=== PATIENT | male | born 1960 | race African-American/Black ===

== ENCOUNTER 2016-07-07 13:21 | Inpatient (IN) | payer OTHER ==
[2016-07-07 14:40] VITALS: BMI 25.2
--- NOTE | 2016-07-07 15:01 | HP ---
COWS - Scale Resting Pulse: 1= [place] 81-100 Sweatin=Flushed/Facial Moisture Restless Observation: 3= Extraneous Movement Pupil Size: 2= Moderately Dilated Bone or Joint Aches: 2= Severe Diffuse Aches Runny Nose/ Eye Tearin= Runny Nose/Eyes GI Upset > 30mins: 3= Vomiting/Diarrhea Tremor Observation: 2= Slight Tremor Visible Yawning Observation: 2= >3x During Session Anxiety or Irritability: 2=Irritable/Anxious Goose Flesh Skin: 0=Smooth Skin COWS Score: 21 CIWA Score - CIWA Score Nausea/Vomitin Muscle Tremors: 3 Anxiety: 3 Agitation: 3 Paroxysmal Sweats: 2 Orientation: 0-Oriented Tacttile Disturbances: 2-Mild Itch/Numbness/Burn Auditory Disturbances: 2-Mild Harshness/Frighten Visual Disturbances: 2-Mild Sensitivity Headache: 2-Mild CIWA-Ar Total Score: 22 Admission ROS BHS - HPI Chief Complaint: i need help to stop using drugs alcohol Allergies/Adverse Reactions: Allergies Allergy/AdvReac Type Severity Reaction Status Date / Time Fish Containing Products Allergy Verified 07/07/16 14:51 No Known Drug Allergies Allergy Verified 07/07/16 14:51 History of Present Illness: this 56 years old male with heroin and alcohol dependence,withdrawal symptom, last detox [facility] history of dvt left leg and pulmonary embolism cad s/p angioplasty with stent nicotine dependence weight loss longest period od sobriety 3 years Exam Limitations: No Limitations - Ebola screening Have you traveled outside of the country in the last 21 days: No Have you had contact with anyone from an Ebola affected area: No Have you been sick,other than usual withdrawal symptoms: No Do you have a fever: No - Review of Systems Constitutional: Chills, Diaphoresis, Loss of Appetite, Malaise, Night Sweats, Changes in sleep, Weakness, Unintentional Wgt. Loss EENT: reports: Tearing, Nose Congestion Respiratory: reports: No Symptoms reported, Other (asthma) Cardiac: reports: Palpitations, Other (cad s/p angioplasty with stent) GI: reports: Nausea, Vomiting, Indigestion, Abdominal cramping : reports: No Symptoms Reported Musculoskeletal: reports: Back Pain, Joint Pain, Muscle Pain, Joint Stiffness Integumentary: reports: Dryness Neuro: reports: Headache, Tremors Endocrine: reports: No Symptoms Reported Hematology: reports: No Symptoms Reported Psychiatric: reports: other Other Systems: Reviewed and Negative Patient History - Patient Medical History Hx Anemia: No Hx Asthma: No Hx Chronic Obstructive Pulmonary Disease (COPD): No Hx Cancer: No Hx Cardiac Disorders: Yes (CAD with cardiac cath stent x1) Hx Congestive Heart Failure: No Hx Hypertension: Yes Hx Hypercholesterolemia: No Hx Pacemaker: No HX Cerebrovascular Accident: No Hx Seizures: No Hx Dementia: No Hx Diabetes: No Hx Gastrointestinal Disorders: No Hx Liver Disease: No Hx Genitourinary Disorders: No Hx Sexually Transmitted Disorders: No Hx Renal Disease (ESRD): No Hx Thyroid Disease: No Hx Human Immunodeficiency Virus (HIV): No (NEGATIVE HX last 2015) Hx Hepatitis C: No Hx Depression: No Hx Suicide Attempt: No Hx Bipolar Disorder: No Hx Schizophrenia: No Other Medical History: no sucidal,no homicidal - Patient Surgical History Past Surgical History: No Hx Neurologic Surgery: No Hx Cataract Extraction: No Hx Cardiac Surgery: Yes (STENT X 1 IN 2012) Hx Lung Surgery: No Hx Breast Surgery: No Hx Breast Biopsy: No Hx Abdominal Surgery: No Hx Appendectomy: No Hx Cholecystectomy: No Hx Genitourinary Surgery: No Hx Section: No Hx Orthopedic Surgery: No Anesthesia Reaction: No - PPD History Previous Implant?: Yes Documented Results: Negative w/o proof Date: 05/03/14 Results: 0mm PPD to be Administered?: Yes - Smoking Cessation Smoking history: Current every day smoker Have you smoked in the past 12 months: Yes Aproximately how many cigarettes per day: 10 Hx Chewing Tobacco Use: No Initiated information on smoking cessation: Yes 'Breaking Loose' booklet given: 07/07/16 - Substance & Tx. History Hx Alcohol Use: Yes Hx Substance Use: Yes Substance Use Type: Alcohol, Heroin Hx Substance Use Treatment: Yes (05/05 [facility]) Family Disease History - Family Disease History Family Disease History: Heart Disease: Father (alcohol,), Mother ( alcohol) Admission Physical Exam BHS - Vital Signs Vital Signs: Vital Signs - 24 hr 07/07/16 14:38 Temperature 98.9 F Pulse Rate 191 H Respiratory 20 Rate Blood Pressure 150/92 - Physical General Appearance: Yes: Moderate Distress, Tremorous, Irritable, Sweating, Anxious HEENTM: Yes: Nasal Congestion Respiratory: Yes: Lungs Clear Neck: Yes: Within Normal Limits Breast: Yes: Within Normal Limits Cardiology: Yes: Within Normal Limits, Regular Rhythm, Regular Rate, S1, S2 Abdominal: Yes: Within Normal Limits, Normal Bowel Sounds, Non Tender, Flat, Soft Genitourinary: Yes: Within Normal Limits Back: Yes: Muscle Spasm Musculoskeletal: Yes: Back pain, Joint Stiffness, Muscle Pain Extremities: Yes: Tremors (swelling of left leg) Neurological: Yes: croze cutter II-XII NML intact, Fully Oriented, Alert, Motor Strength 5/5 Integumentary: Yes: Dry Lymphatic: Yes: Within Normal Limits - Diagnostic (1) Opioid dependence with withdrawal Current Visit: Yes Status: Acute (2) HTN Current Visit: No Status: Active (3) Nicotine dependence Current Visit: No Status: Acute (4) CAD (coronary artery disease) Current Visit: No Status: Chronic Qualifiers: Coronary Disease-Associated Artery/Lesion type: [place] artery [place] vs. transplanted heart: [place] heart Associated angina: without angina Qualified Code(s): I25.10 - Atherosclerotic heart disease of [place] coronary artery without angina pectoris (5) Weight loss Current Visit: Yes Status: Acute (6) Asthma Current Visit: Yes Status: Acute (7) Left leg DVT Current Visit: Yes Status: Acute (8) History of pulmonary embolism Current Visit: Yes Status: Acute Cleared for Admission S - Detox or Rehab [facility] Level of Care: Medically Managed Detox Regimen/Protocol: Methadone/Librium S Breath Alcohol Content Breath Alcohol Content: 0 Urine Drug Screen - Results Drug Screen Negative: No Urine Drug Screen Results: OPI-Opiates, BZO-Benzodiazepines
[2016-07-07] MEDS ORDERED: P-EPHED 60MG/TRIPROLIDI 2.5MG TABLET PO PRN (15:13)
[2016-07-07] MEDS ORDERED: IBUPROFEN 400 MG TABLET (FP) PO PRN (15:13)
[2016-07-07] MEDS ORDERED: MAG HYDROX/AL HYDROX/SIMETH 30 ML UNIT-DOSE CUP PO PRN (15:13)
[2016-07-07] MEDS ORDERED: MAGNESIUM HYDROX 2400MG/30ML ORAL SUSPENSION 30 ML CUP PO PRN (15:13)
[2016-07-07] MEDS ORDERED: LOPERAMIDE HCL 2 MG CAPSULE PO PRN (15:13)
[2016-07-07] MEDS ORDERED: diphenhydrAMINE HCL 50 MG CAPSULE PO PRN (15:13)
[2016-07-07] MEDS ORDERED: MAGNESIUM CITRATE 300 ML BOTTLE PO PRN (15:13)
[2016-07-07] MEDS ORDERED: chlordiazePOXIDE HCL 25 MG CAPSULE PO PRN (15:13)
[2016-07-07] MEDS ORDERED: guaiFENesin/D-METHORPHAN HB 10 ML UNIT-DOSE CUPS PO PRN (15:13)
[2016-07-07] MEDS ORDERED: hydrOXYzine PAMOATE 50 MG CAPSULE (FP) PO PRN (15:13)
[2016-07-07] MEDS ORDERED: MENTHOL/PHENOL 1 EACH UD MM PRN (15:13)
[2016-07-07] MEDS ORDERED: ALBUTEROL SO4 6.7 GM HFA INHALER IH PRN (15:16)
[2016-07-07] MEDS ORDERED: METHADONE HCL 10 MG TABLET (FOR DETOX USE ONLY) PO ONE ×2 (15:26→23:00)
[2016-07-07] MEDS ORDERED: chlordiazePOXIDE HCL 25 MG CAPSULE PO ONE (15:26)
[2016-07-07] MEDS ORDERED: METHADONE HCL 10 MG TABLET (FOR DETOX USE ONLY) ONE (17:45)
[2016-07-07] MEDS: chlordiazePOXIDE HCL 25 MG CAPSULE PO SCH ×2 (17:59→22:25)
[2016-07-07] MEDS: APIXABAN 5 MG TABLET PO SCH (22:25)
[2016-07-07] MEDS: THIAMINE HCL 100 MG TABLET (FP) PO SCH (22:25)
[2016-07-07 22:37] LABS: URINE APPEARANCE CLEAR; URINE BILIRUBIN NEGATIVE (NEGATIVE); URINE BLOOD NEGATIVE (NEGATIVE); URINE COLOR YELLOW; URINE GLUCOSE (UA) NEGATIVE (NEGATIVE); URINE KETONE 2+ (NEGATIVE); URINE LEUK ESTERASE NEGATIVE (NEGATIVE); URINE NITRITE NEGATIVE (NEGATIVE); URINE PROTEIN 1+ (NEGATIVE); URINE UROBILINOGEN 2.0 E.U/dl E.U./dl (0.2-1.0)
[2016-07-07 22:40] LABS: URINE HYALINE CAST 1 /lpf; URINE MUCUS MANY; URINE RBC 4 /hpf (0-3); URINE WBC 1 /hpf (3-5)
[2016-07-08] MEDS: chlordiazePOXIDE HCL 25 MG CAPSULE PO SCH ×4 (05:32→22:34)
[2016-07-08] MEDS ORDERED: METHADONE HCL 10 MG TABLET (FOR DETOX USE ONLY) PO SCH (10:00)
[2016-07-08] MEDS ORDERED: APIXABAN 5 MG TABLET PO SCH (10:00)
[2016-07-08 10:27] LABS: MCH 30.9 pg (25.7-33.7); MCHC 32.9 g/dl (32.0-35.9); MEAN CELL VOLUME 94.2 fl (80-96); MEAN PLT VOLUME 9.3 fl (7.5-11.1); PLATELET COUNT 255 K/MM3 (134-434); RDW 14.7 % (11.9-15.9); WHITE BLOOD COUNT 9.4 K/mm3 (4.0-10.0)
[2016-07-08] MEDS: METOPROLOL SUCCINATE 25 MG TAB.SR.24H (FP) PO SCH (10:33)
[2016-07-08] MEDS: PRENATAL VITAMINS W/ FOLIC ACID TABLET (FP) PO SCH (10:33)
[2016-07-08] MEDS: CLOPIDOGREL BISULFATE 75 MG TABLET (FP) PO SCH (10:34)
[2016-07-08] MEDS: APIXABAN 5 MG TABLET PO SCH ×2 (10:35→22:34)
[2016-07-08 10:52] LABS: ALBUMIN 4.3 g/dl (3.4-5.0); ALK PHOS 161 U/L (45-117); ANION GAP 17 (8-16); CALCIUM 9.4 mg/dL (8.5-10.1); CO2 19 mmol/L (21-32); CREATININE 0.8 mg/dL (0.7-1.3); GLUCOSE,RANDOM 65 mg/dL (74-106); SGOT/AST 20 U/L (15-37); SGPT/ALT 18 U/L (12-78); TOT PROT 7.8 g/dl (6.4-8.2)
[2016-07-08] MEDS ORDERED: CYCLOBENZAPRINE HCL 10 MG TABLET (FP) PO PRN (12:10)
--- NOTE | 2016-07-08 13:24 | EKG ---
Test Reason : Blood Pressure : / mmHG Vent. Rate : 066 BPM Atrial Rate : 066 BPM P-R Int : 174 ms QRS Dur : 088 ms QT Int : 464 ms P-R-T Axes : 079 072 067 degrees QTc Int : 486 ms NORMAL SINUS RHYTHM WITH SINUS ARRHYTHMIA ANTEROSEPTAL INFARCT , AGE UNDETERMINED ABNORMAL ECG NO PREVIOUS ECGS AVAILABLE Confirmed by ISSAC BUSTOS MD ([id number]) on 07/08/2016 1:24:23 PM Referred By: Confirmed By:ISSAC BUSTOS MD
--- NOTE | 2016-07-08 14:47 | PN ---
S CIWA - CIWA Score Nausea/Vomitin Muscle Tremors: 3 Anxiety: 2 Agitation: 1-Slight > Activity Paroxysmal Sweats: 3 Orientation: 0-Oriented Tacttile Disturbances: 2-Mild Itch/Numbness/Burn Auditory Disturbances: 0-None Visual Disturbances: 0-None Headache: 0-None Present CIWA-Ar Total Score: 16 BHS COWS - Scale Resting Pulse: 0= [place] 80 or Below Sweatin= Chills/Flushing Restless Observation: 0= Sits Still Pupil Size: 0= Normal to Room Light Bone or Joint Aches: 2= Severe Diffuse Aches Runny Nose/ Eye Tearin= Nasal Congestion GI Upset > 30mins: 3= Vomiting/Diarrhea Tremor Observation of Outstretched Hands: 2= Slight Tremor Visible Yawning Observation: 1= 1-2x During Session Anxiety or Irritability: 2=Irritable/Anxious Goose Flesh Skin: 0=Smooth Skin COWS Score: 12 S Progress Note (SOAP) Subjective: Body aches, vomiting, Back Ache, Sweating, Interrupted Sleep, Tremors. Objective: PT. A & O X 3, OBSERVED AMBULATING ON UNIT. 07/08/16 14:45 Vital Signs Temperature 97.8 F 07/08/16 14:22 Pulse Rate 69 07/08/16 14:22 Respiratory Rate 16 07/08/16 14:22 Blood Pressure 115/71 07/08/16 14:22 O2 Sat by Pulse Oximetry (%) Laboratory Last Values WBC 9.4 K/mm3 (4.0-10.0) D 07/08/16 05:50 RBC 4.58 M/mm3 (4.00-5.60) 07/08/16 05:50 Hgb 14.2 GM/dL (11.7-16.9) 07/08/16 05:50 Hct 43.1 % (35.4-49) 07/08/16 05:50 MCV 94.2 fl (80-96) 07/08/16 05:50 MCHC 32.9 g/dl (32.0-35.9) 07/08/16 05:50 RDW 14.7 % (11.9-15.9) 07/08/16 05:50 Plt Count 255 K/MM3 (134-434) 07/08/16 05:50 MPV 9.3 fl (7.5-11.1) D 07/08/16 05:50 Sodium 136 mmol/L (136-145) 07/08/16 05:50 Potassium 3.8 mmol/L (3.5-5.1) 07/08/16 05:50 Chloride 100 mmol/L (98-107) 07/08/16 05:50 Carbon Dioxide 19 mmol/L (21-32) L D 07/08/16 05:50 Anion Gap 17 (8-16) H 07/08/16 05:50 BUN 7 mg/dL (7-18) D 07/08/16 05:50 Creatinine 0.8 mg/dL (0.7-1.3) 07/08/16 05:50 Creat Clearance w eGFR > 60 (>60) 07/08/16 05:50 Random Glucose 65 mg/dL (74-106) L D 07/08/16 05:50 Calcium 9.4 mg/dL (8.5-10.1) 07/08/16 05:50 Total Bilirubin 1.0 mg/dL (0.2-1.0) D 07/08/16 05:50 AST 20 U/L (15-37) 07/08/16 05:50 ALT 18 U/L (12-78) D 07/08/16 05:50 Alkaline Phosphatase 161 U/L (45-117) H D 07/08/16 05:50 Total Protein 7.8 g/dl (6.4-8.2) D 07/08/16 05:50 Albumin 4.3 g/dl (3.4-5.0) D 07/08/16 05:50 Urine Color Yellow 07/07/16 22:00 Urine Appearance Clear 07/07/16 22:00 Urine pH 8.0 (5.0-8.0) D 07/07/16 22:00 Ur Specific [place] 1.024 (1.001-1.035) 07/07/16 22:00 Urine Protein 1+ (NEGATIVE) H 07/07/16 22:00 Urine Glucose (UA) Negative (NEGATIVE) 07/07/16 22:00 Urine Ketones 2+ (NEGATIVE) H 07/07/16 22:00 Urine Blood Negative (NEGATIVE) 07/07/16 22:00 Urine Nitrite Negative (NEGATIVE) 07/07/16 22:00 Urine Bilirubin Negative (NEGATIVE) 07/07/16 22:00 Urine Urobilinogen 2.0 e.u/dl E.U./dl (0.2-1.0) 07/07/16 22:00 Ur Leukocyte Esterase Negative (NEGATIVE) 07/07/16 22:00 Urine RBC 4 /hpf (0-3) 07/07/16 22:00 Urine WBC 1 /hpf (3-5) 07/07/16 22:00 Ur Epithelial Cells Rare /hpf (FEW) 07/07/16 22:00 Hyaline Casts 1 /lpf 07/07/16 22:00 Urine Mucus Many 07/07/16 22:00 RPR Titer Nonreactive (NONREACTIVE) 07/08/16 05:50 LABS NOTED. Assessment: 07/08/16 14:46 WITHDRAWAL SYMPTOMS. Plan: CONTINUE DETOX. ADVISED PATIENT TO FOLLOW-UP WITH PERSONAL INJURY LEGAL ASSISTANT / REHAB MEDICAL PROVIDER AFTER DISCHARGE FROM DETOX FOR GENERAL MEDICAL ASSESSMENT AND FOR ABNORMAL LAB VALUES.
[2016-07-08] MEDS: LIDOCAINE 5% TOPICAL PATCH TP SCH (15:02)
[2016-07-08] MEDS: THIAMINE HCL 100 MG TABLET (FP) PO SCH (22:35)
[2016-07-09] MEDS: chlordiazePOXIDE HCL 25 MG CAPSULE PO SCH ×2 (05:08→10:35)
[2016-07-09] MEDS: PRENATAL VITAMINS W/ FOLIC ACID TABLET (FP) PO SCH (10:35)
[2016-07-09] MEDS: CLOPIDOGREL BISULFATE 75 MG TABLET (FP) PO SCH (10:35)
[2016-07-09] MEDS: METHADONE HCL 5 MG TABLET (FOR DETOX USE ONLY) PO SCH (10:35)
[2016-07-09] MEDS: METOPROLOL SUCCINATE 25 MG TAB.SR.24H (FP) PO SCH (10:36)
[2016-07-09] MEDS: APIXABAN 5 MG TABLET PO SCH ×2 (10:36→22:27)
[2016-07-09] MEDS: LIDOCAINE 5% TOPICAL PATCH TP SCH (12:42)
--- NOTE | 2016-07-09 12:54 | PN ---
[facility] CIWA - CIWA Score Nausea/Vomitin-No Nausea/No Vomiting Muscle Tremors: 3 Anxiety: 4-Mod. Anxious/Guarded Agitation: 3 Paroxysmal Sweats: 3 Orientation: 0-Oriented Tacttile Disturbances: 0-None Auditory Disturbances: 0-None Visual Disturbances: 0-None Headache: 0-None Present CIWA-Ar Total Score: 13 BHS COWS - Scale Resting Pulse: 0= [place] 80 or Below Sweatin=Flushed/Facial Moisture Restless Observation: 1= Difficult to Sit Still Pupil Size: 0= Normal to Room Light Bone or Joint Aches: 2= Severe Diffuse Aches Runny Nose/ Eye Tearin= Runny Nose/Eyes GI Upset > 30mins: 2= Nausea/Diarrhea Tremor Observation of Outstretched Hands: 2= Slight Tremor Visible Yawning Observation: 1= 1-2x During Session Anxiety or Irritability: 2=Irritable/Anxious Goose Flesh Skin: 0=Smooth Skin COWS Score: 14 S Progress Note (SOAP) Subjective: anxiety,tremors,sweating,interrupted sleep,restless. Objective: 07/09/16 12:54 Vital Signs - 8 hr 07/09/16 07/09/16 06:20 11:24 Temperature 98.1 F 97.9 F Pulse Rate 76 78 Respiratory 18 20 Rate Blood Pressure 102/60 105/69 Laboratory Last Values WBC 9.4 K/mm3 (4.0-10.0) D 07/08/16 05:50 RBC 4.58 M/mm3 (4.00-5.60) 07/08/16 05:50 Hgb 14.2 GM/dL (11.7-16.9) 07/08/16 05:50 Hct 43.1 % (35.4-49) 07/08/16 05:50 MCV 94.2 fl (80-96) 07/08/16 05:50 MCHC 32.9 g/dl (32.0-35.9) 07/08/16 05:50 RDW 14.7 % (11.9-15.9) 07/08/16 05:50 Plt Count 255 K/MM3 (134-434) 07/08/16 05:50 MPV 9.3 fl (7.5-11.1) D 07/08/16 05:50 Sodium 136 mmol/L (136-145) 07/08/16 05:50 Potassium 3.8 mmol/L (3.5-5.1) 07/08/16 05:50 Chloride 100 mmol/L (98-107) 07/08/16 05:50 Carbon Dioxide 19 mmol/L (21-32) L D 07/08/16 05:50 Anion Gap 17 (8-16) H 07/08/16 05:50 BUN 7 mg/dL (7-18) D 07/08/16 05:50 Creatinine 0.8 mg/dL (0.7-1.3) 07/08/16 05:50 Creat Clearance w eGFR > 60 (>60) 07/08/16 05:50 Random Glucose 65 mg/dL (74-106) L D 07/08/16 05:50 Calcium 9.4 mg/dL (8.5-10.1) 07/08/16 05:50 Total Bilirubin 1.0 mg/dL (0.2-1.0) D 07/08/16 05:50 AST 20 U/L (15-37) 07/08/16 05:50 ALT 18 U/L (12-78) D 07/08/16 05:50 Alkaline Phosphatase 161 U/L (45-117) H D 07/08/16 05:50 Total Protein 7.8 g/dl (6.4-8.2) D 07/08/16 05:50 Albumin 4.3 g/dl (3.4-5.0) D 07/08/16 05:50 Urine Color Yellow 07/07/16 22:00 Urine Appearance Clear 07/07/16 22:00 Urine pH 8.0 (5.0-8.0) D 07/07/16 22:00 Ur Specific [place] 1.024 (1.001-1.035) 07/07/16 22:00 Urine Protein 1+ (NEGATIVE) H 07/07/16 22:00 Urine Glucose (UA) Negative (NEGATIVE) 07/07/16 22:00 Urine Ketones 2+ (NEGATIVE) H 07/07/16 22:00 Urine Blood Negative (NEGATIVE) 07/07/16 22:00 Urine Nitrite Negative (NEGATIVE) 07/07/16 22:00 Urine Bilirubin Negative (NEGATIVE) 07/07/16 22:00 Urine Urobilinogen 2.0 e.u/dl E.U./dl (0.2-1.0) 07/07/16 22:00 Ur Leukocyte Esterase Negative (NEGATIVE) 07/07/16 22:00 Urine RBC 4 /hpf (0-3) 07/07/16 22:00 Urine WBC 1 /hpf (3-5) 07/07/16 22:00 Ur Epithelial Cells Rare /hpf (FEW) 07/07/16 22:00 Hyaline Casts 1 /lpf 07/07/16 22:00 Urine Mucus Many 07/07/16 22:00 RPR Titer Nonreactive (NONREACTIVE) 07/08/16 05:50 labs noted Assessment: 07/09/16 12:54 withdrawal sx. Plan: continue detox
[2016-07-09] MEDS: ACETAMINOPHEN 325 MG TABLET (FP) PO PRN ×2 (14:13→23:14)
[2016-07-09] MEDS: chlordiazePOXIDE 5 MG CAPSULE PO SCH ×2 (17:56→22:28)
[2016-07-09] MEDS: THIAMINE HCL 100 MG TABLET (FP) PO SCH (22:27)
[2016-07-10] MEDS: chlordiazePOXIDE 5 MG CAPSULE PO SCH ×2 (05:16→10:30)
[2016-07-10] MEDS: ACETAMINOPHEN 325 MG TABLET (FP) PO PRN (06:02)
[2016-07-10] MEDS: METHADONE HCL 5 MG TABLET (FOR DETOX USE ONLY) PO SCH (10:29)
[2016-07-10] MEDS: PRENATAL VITAMINS W/ FOLIC ACID TABLET (FP) PO SCH (10:30)
[2016-07-10] MEDS: METOPROLOL SUCCINATE 25 MG TAB.SR.24H (FP) PO SCH (10:30)
[2016-07-10] MEDS: CLOPIDOGREL BISULFATE 75 MG TABLET (FP) PO SCH (10:30)
[2016-07-10] MEDS: APIXABAN 5 MG TABLET PO SCH (10:31)
[2016-07-10] MEDS: LIDOCAINE 5% TOPICAL PATCH TP SCH (11:07)
[2016-07-10 12:58] VITALS: BP 102/69; PULSE 69; TEMP 95.2
--- NOTE | 2016-07-10 14:36 | DS ---
[facility] Detox Discharge Summary Admission Date: 07/07/16 Discharge Date: 07/10/16 - History Present History: Alcohol Dependence, Cannabis Dependence, Opioid Dependence Additional Comments: ADVISED PATIENT TO FOLLOW-UP WITH [facility] FOR GENERAL MEDICAL ASSESSMENT AND FOR ABNORMAL LAB VALUES. Pertinent Past History: Asthma, History of Left leg DVT, History of Pulmonary Embolism, CAD, HTN. - Physical Exam Results Vital Signs: Vital Signs Temperature 95.2 F L 07/10/16 12:57 Pulse Rate 69 07/10/16 12:57 Respiratory Rate 18 07/10/16 12:57 Blood Pressure 102/69 07/10/16 12:57 O2 Sat by Pulse Oximetry (%) Pertinent Admission Physical Exam Findings: WITHDRAWAL SYMPTOMS. Laboratory Last Values WBC 9.4 K/mm3 (4.0-10.0) D 07/08/16 05:50 RBC 4.58 M/mm3 (4.00-5.60) 07/08/16 05:50 Hgb 14.2 GM/dL (11.7-16.9) 07/08/16 05:50 Hct 43.1 % (35.4-49) 07/08/16 05:50 MCV 94.2 fl (80-96) 07/08/16 05:50 MCHC 32.9 g/dl (32.0-35.9) 07/08/16 05:50 RDW 14.7 % (11.9-15.9) 07/08/16 05:50 Plt Count 255 K/MM3 (134-434) 07/08/16 05:50 MPV 9.3 fl (7.5-11.1) D 07/08/16 05:50 Sodium 136 mmol/L (136-145) 07/08/16 05:50 Potassium 3.8 mmol/L (3.5-5.1) 07/08/16 05:50 Chloride 100 mmol/L (98-107) 07/08/16 05:50 Carbon Dioxide 19 mmol/L (21-32) L D 07/08/16 05:50 Anion Gap 17 (8-16) H 07/08/16 05:50 BUN 7 mg/dL (7-18) D 07/08/16 05:50 Creatinine 0.8 mg/dL (0.7-1.3) 07/08/16 05:50 Creat Clearance w eGFR > 60 (>60) 07/08/16 05:50 Random Glucose 65 mg/dL (74-106) L D 07/08/16 05:50 Calcium 9.4 mg/dL (8.5-10.1) 07/08/16 05:50 Total Bilirubin 1.0 mg/dL (0.2-1.0) D 07/08/16 05:50 AST 20 U/L (15-37) 07/08/16 05:50 ALT 18 U/L (12-78) D 07/08/16 05:50 Alkaline Phosphatase 161 U/L (45-117) H D 07/08/16 05:50 Total Protein 7.8 g/dl (6.4-8.2) D 07/08/16 05:50 Albumin 4.3 g/dl (3.4-5.0) D 07/08/16 05:50 Urine Color Yellow 07/07/16 22:00 Urine Appearance Clear 07/07/16 22:00 Urine pH 8.0 (5.0-8.0) D 07/07/16 22:00 Ur Specific [place] 1.024 (1.001-1.035) 07/07/16 22:00 Urine Protein 1+ (NEGATIVE) H 07/07/16 22:00 Urine Glucose (UA) Negative (NEGATIVE) 07/07/16 22:00 Urine Ketones 2+ (NEGATIVE) H 07/07/16 22:00 Urine Blood Negative (NEGATIVE) 07/07/16 22:00 Urine Nitrite Negative (NEGATIVE) 07/07/16 22:00 Urine Bilirubin Negative (NEGATIVE) 07/07/16 22:00 Urine Urobilinogen 2.0 e.u/dl E.U./dl (0.2-1.0) 07/07/16 22:00 Ur Leukocyte Esterase Negative (NEGATIVE) 07/07/16 22:00 Urine RBC 4 /hpf (0-3) 07/07/16 22:00 Urine WBC 1 /hpf (3-5) 07/07/16 22:00 Ur Epithelial Cells Rare /hpf (FEW) 07/07/16 22:00 Hyaline Casts 1 /lpf 07/07/16 22:00 Urine Mucus Many 07/07/16 22:00 RPR Titer Nonreactive (NONREACTIVE) 07/08/16 05:50 LABS NOTED. - Treatment Hospital Course: Detoxed Safely - Medication Discharge Medications: Ambulatory Orders Clopidogrel Bisulfate [Clopidogrel] 75 mg PO DAILY #30 tablet 05/06/14 Metoprolol Succinate [Toprol XL -] 25 mg PO DAILY #30 tab.sr.24h 05/06/14 Albuterol Sulfate Inhaler - [Ventolin Hfa Inhaler -] 2 inh PO Q4H PRN 07/07/16 Apixaban [Eliquis -] 5 mg PO DAILY 07/07/16 - Diagnosis (1) HTN Status: Chronic (2) Alcohol dependence with uncomplicated withdrawal Status: Acute (3) Asthma Status: Chronic Qualifiers: Asthma severity: mild intermittent Asthma complication type: uncomplicated Qualified Code(s): J45.20 - Mild intermittent asthma, uncomplicated (4) Cannabis dependence Status: Acute (5) History of pulmonary embolism Status: Chronic (6) Left leg DVT Status: Chronic (7) Nicotine dependence Status: Chronic Qualifiers: Nicotine product type: cigarettes Substance use status: uncomplicated Qualified Code(s): F17.210 - Nicotine dependence, cigarettes, uncomplicated (8) Opioid dependence with withdrawal Status: Acute (9) CAD (coronary artery disease) Status: Chronic Qualifiers: Coronary Disease-Associated Artery/Lesion type: [place] artery [place] vs. transplanted heart: [place] heart Associated angina: without angina Qualified Code(s): I25.10 - Atherosclerotic heart disease of [place] coronary artery without angina pectoris - AMA Did Patient Leave Against Medical Advice: Yes (PATIENT DID NOT WANT TO STAY ON UNIT TO COMPLETE DETOX REGIMEN.)
[2016-07-10] MEDS ORDERED: chlordiazePOXIDE HCL 10 MG CAPSULE PO SCH (17:00)
[2016-07-11] MEDS ORDERED: METHADONE HCL 10 MG TABLET (FOR DETOX USE ONLY) PO SCH (10:00)
[2016-07-12] MEDS ORDERED: METHADONE HCL 5 MG TABLET (FOR DETOX USE ONLY) PO SCH (06:00)
== END 2016-07-10 13:17 | disposition left against medical advice (07) | DRG 770 ==
LOC: YASAS 13:21 → Y3N 15:23
PROVIDERS: ADMIT Internal Medicine; ATTEND Internal Medicine
PROC: HZ2ZZZZ Detoxification Services for Substance Abuse Treatment (ICD-10-PCS; principal; 2016-07-07)
DX: F11.23 Opioid dependence with withdrawal (principal); F10.230 Alcohol dependence with withdrawal, uncomplicated; F12.20 Cannabis dependence, uncomplicated; F17.210 Nicotine dependence, cigarettes, uncomplicated; I10 Essential (primary) hypertension; I25.10 Atherosclerotic heart disease of native coronary artery without angina pectoris; J45.20 Mild intermittent asthma, uncomplicated; Z86.718 Personal history of other venous thrombosis and embolism; Z86.711 Personal history of pulmonary embolism; Z79.01 Long term (current) use of anticoagulants; Z95.5 Presence of coronary angioplasty implant and graft; Z87.898 Personal history of other specified conditions; Z59.0 Homelessness
CPT/HCPCS: 36415; 80053; 81003; 81015; 85027; 86593; 93005; 93010

== ENCOUNTER 2016-08-07 14:48 | Inpatient (IN) | payer OTHER ==
[2016-08-07 17:55] VITALS: BMI 25.5
--- NOTE | 2016-08-07 19:24 | HP ---
Admission [facility] - [facility] Chief Complaint: I WANT TO GO TO REHAB Allergies/Adverse Reactions: Allergies Allergy/AdvReac Type Severity Reaction Status Date / Time Fish Containing Products Allergy Verified 08/07/16 18:36 No Known Drug Allergies Allergy Verified 08/07/16 18:36 History of Present Illness: 56 YEARS OLD MALE WITH LONG HISTORY OF ALCOHOL OPIATE NICOTINE DEPENDENCE HAS EMBOLI, ON SUBOXONE PROGRAM WEAKNESS OF LEGS SWELLING OF THE FEET IS ADMITTED TO REHAB Exam Limitations: No Limitations - Ebola screening Have you traveled outside of the country in the last 21 days: No Have you had contact with anyone from an Ebola affected area: No Have you been sick,other than usual withdrawal symptoms: No Do you have a fever: No - Review of Systems Constitutional: Chills, Loss of Appetite, Changes in sleep, Unintentional Wgt. Loss, Unexplained wgt Loss EENT: reports: No Symptoms Reported Respiratory: reports: No Symptoms reported Cardiac: reports: No Symptoms Reported GI: reports: No Symptoms Reported, Poor Appetite : reports: No Symptoms Reported Musculoskeletal: reports: No Symptoms Reported, Muscle Pain (SORE) Integumentary: reports: No Symptoms Reported Neuro: reports: No Symptoms reported Endocrine: reports: No Symptoms Reported Hematology: reports: Blood Clots Psychiatric: reports: Judgement Intact, Mood/Affect Appropiate, Orientated x3 Other Systems: Reviewed and Negative Patient History - Patient Medical History Hx Anemia: No Hx Asthma: No Hx Chronic Obstructive Pulmonary Disease (COPD): No Hx Cancer: No Hx Cardiac Disorders: Yes (CAD with cardiac cath stent x1) Hx Congestive Heart Failure: No Hx Hypertension: Yes Hx Hypercholesterolemia: No Hx Pacemaker: No HX Cerebrovascular Accident: No Hx Seizures: No Hx Dementia: No Hx Diabetes: No Hx Gastrointestinal Disorders: No Hx Liver Disease: No Hx Genitourinary Disorders: No Hx Sexually Transmitted Disorders: No Hx Renal Disease (ESRD): No Hx Thyroid Disease: No Hx Human Immunodeficiency Virus (HIV): No (NEGATIVE HX last 2015) Hx Hepatitis C: No Hx Depression: No Hx Suicide Attempt: No Hx Bipolar Disorder: No Hx Schizophrenia: No - Patient Surgical History Past Surgical History: Yes Hx Neurologic Surgery: No Hx Cataract Extraction: No Hx Cardiac Surgery: Yes (STENT X 1 IN 2012) Hx Lung Surgery: No Hx Breast Surgery: No Hx Breast Biopsy: No Hx Abdominal Surgery: No Hx Appendectomy: No Hx Cholecystectomy: No Hx Genitourinary Surgery: No Hx Orthopedic Surgery: No Anesthesia Reaction: No - PPD History Previous Implant?: Yes Documented Results: Negative w/proof Implanted On Prior [facility] Admission?: Yes Date: 07/24/16 Results: 0mm PPD to be Administered?: No - Smoking Cessation Smoking history: Current every day smoker Have you smoked in the past 12 months: Yes Aproximately how many cigarettes per day: 10 Cigars Per Day: 0 Hx Chewing Tobacco Use: No Initiated information on smoking cessation: Yes 'Breaking Loose' booklet given: 08/07/16 - Substance & Tx. History Hx Alcohol Use: Yes Hx Substance Use: Yes Substance Use Type: Alcohol, Cocaine, Marijuana, Opiates Hx Substance Use Treatment: Yes - Substances Abused Alcohol Route: Oral Frequency: Daily Amount used: [place] Age of first use: 21 Date of Last Use: 07/19/16 Heroin Route: Inhalation Frequency: Daily Amount used: 15 BAGS Age of first use: 46 Date of Last Use: 07/19/16 Family Disease History - Family Disease History Family Disease History: Heart Disease: Father (alcohol,), Mother ( alcohol) Admission Physical Exam S - Vital Signs Vital Signs: Vital Signs - 24 hr 08/07/16 17:53 Temperature 97.4 F L Pulse Rate 80 Respiratory 20 Rate Blood Pressure 101/62 - Physical General Appearance: Yes: No Apparent Distress, Appropriately Dressed, Thin HEENTM: Yes: Hearing grossly Normal, Normal ENT Inspection, Normocephalic, Normal Voice Respiratory: Yes: Chest Non-Tender, Lungs Clear, Normal Breath Sounds, No Respiratory Distress, No Accessory Muscle Use Neck: Yes: Supple, Trachea in good position Breast: Yes: Breasts Symetrical Cardiology: Yes: Regular Rhythm, Regular Rate, S1, S2 Abdominal: Yes: Normal Bowel Sounds, Non Tender, Soft Genitourinary: Yes: Within Normal Limits Back: Yes: Normal Inspection Musculoskeletal: Yes: full range of Motion, Gait Steady Extremities: Yes: Normal Range of Motion, Non-Tender Neurological: Yes: Fully Oriented, Alert, Motor Strength 5/5, Normal Mood/Affect , Normal Response Integumentary: Yes: Warm Lymphatic: Yes: Within Normal Limits - Diagnostic (1) Weight loss Current Visit: Yes Status: Acute (2) HTN Current Visit: Yes Status: Acute (3) Nicotine dependence Current Visit: Yes Status: Acute Qualifiers: Nicotine product type: cigarettes Substance use status: in withdrawal Qualified Code(s): F17.213 - Nicotine dependence, cigarettes, with withdrawal (4) Encounter for monitoring Suboxone maintenance therapy Current Visit: Yes Status: Acute Comment: SUBOXONE 8-2 MG IN AM SUBOXONE 4-1 MG IN PM (5) H/O heart artery stent Current Visit: Yes Status: Resolved Comment: ELIQUIS (6) Use of cane as ambulatory aid Current Visit: Yes Status: Acute Comment: ARTHRITIS OF THE LEGS Cleared for Admission [facility] - Detox or Rehab [facility] Level of Care: Observation Bed Detox Regimen/Protocol: Not Applicable Claeared for Rehab Admission: Yes [facility] Breath Alcohol Content Breath Alcohol Content: 0 Urine Drug Screen - Results Urine Drug Screen Results: BZO-Benzodiazepines
[2016-08-07] MEDS ORDERED: P-EPHED 60MG/TRIPROLIDI 2.5MG TABLET PO PRN (19:29)
[2016-08-07] MEDS ORDERED: LOPERAMIDE HCL 2 MG CAPSULE PO PRN (19:29)
[2016-08-07] MEDS ORDERED: guaiFENesin/D-METHORPHAN HB 10 ML UNIT-DOSE CUPS PO PRN (19:29)
[2016-08-07] MEDS ORDERED: MAG HYDROX/AL HYDROX/SIMETH 30 ML UNIT-DOSE CUP PO PRN (19:29)
[2016-08-07] MEDS ORDERED: MENTHOL/PHENOL 1 EACH UD MM PRN (19:29)
[2016-08-07] MEDS ORDERED: MAGNESIUM HYDROX 2400MG/30ML ORAL SUSPENSION 30 ML CUP PO PRN (19:29)
[2016-08-07] MEDS ORDERED: IBUPROFEN 400 MG TABLET (FP) PO PRN (19:29)
[2016-08-07] MEDS ORDERED: MAGNESIUM CITRATE 300 ML BOTTLE PO PRN (19:29)
[2016-08-07] MEDS ORDERED: ALBUTEROL SO4 6.7 GM HFA INHALER IH PRN (19:32)
[2016-08-07] MEDS: THIAMINE HCL 100 MG TABLET (FP) PO SCH (22:17)
[2016-08-07 23:19] LABS: URINE APPEARANCE CLEAR; URINE BILIRUBIN NEGATIVE (NEGATIVE); URINE BLOOD NEGATIVE (NEGATIVE); URINE COLOR YELLOW; URINE GLUCOSE (UA) NEGATIVE (NEGATIVE); URINE KETONE NEGATIVE (NEGATIVE); URINE LEUK ESTERASE NEGATIVE (NEGATIVE); URINE NITRITE NEGATIVE (NEGATIVE); URINE PROTEIN NEGATIVE (NEGATIVE); URINE UROBILINOGEN NEGATIVE E.U./dl (0.2-1.0)
[2016-08-08] MEDS: COLLOIDAL OATMEAL 1 BAR EACH TP PRN (06:42)
[2016-08-08] MEDS: PRENATAL VITAMINS W/ FOLIC ACID TABLET (FP) PO SCH (09:51)
[2016-08-08] MEDS: BUPRENORPHINE/NALOXONE 8 MG/2 MG FILM PACKET SL SCH (09:51)
[2016-08-08] MEDS: NICOTINE 14 MG/24 HOURS TOPICAL PATCH TD SCH (09:54)
[2016-08-08 10:13] LABS: MCH 30.7 pg (25.7-33.7); MCHC 33.2 g/dl (32.0-35.9); MEAN CELL VOLUME 92.6 fl (80-96); MEAN PLT VOLUME 9.6 fl (7.5-11.1); PLATELET COUNT 194 K/MM3 (134-434); RDW 14.5 % (11.9-15.9); WHITE BLOOD COUNT 6.9 K/mm3 (4.0-10.0)
[2016-08-08] MEDS: METOPROLOL SUCCINATE 25 MG TAB.SR.24H (FP) PO SCH (10:19)
[2016-08-08] MEDS: APIXABAN 5 MG TABLET PO SCH (10:19)
[2016-08-08 10:37] LABS: ALBUMIN 3.9 g/dl (3.4-5.0); ALK PHOS 121 U/L (45-117); ANION GAP 8 (8-16); BILIRUBIN,TOTAL 0.3 mg/dL (0.2-1.0); CO2 27 mmol/L (21-32); CREATININE 0.7 mg/dL (0.7-1.3); GLUCOSE,RANDOM 88 mg/dL (74-106); SGOT/AST 20 U/L (15-37); SGPT/ALT 22 U/L (12-78); TOT PROT 7.1 g/dl (6.4-8.2)
--- NOTE | 2016-08-08 14:41 | HP ---
Psychiatrist Admission - Data Date of interview: 08/08/16 Admission source: [facility] Identifying data: This is the second 5N inpatient rehabilitation admission for this 56 year old black male who currently undomiciled and unemployed. Medical History: HTN, surgical hx of cardiac stent placement in 2012. Smokes cigarettes 10 a day. Psychiatric History: Patient denies history of psyhciatric treatment, h reports has a difficult time to sleep, reports past good responce to the Trazodone 50 mg po hs and willing to restart medication. Physical/Sexual Abuse/Trauma History: Denies history of sexual, physical and verbal abuse. No history of servise. Vital Signs: Vital Signs - 24 hr 08/07/16 08/07/16 08/08/16 17:53 21:20 00:43 Temperature 97.4 F L 98.5 F Pulse Rate 80 84 Respiratory 20 18 18 Rate Blood Pressure 101/62 119/72 08/08/16 08/08/16 07:00 10:00 Temperature 98.0 F Pulse Rate 71 65 Respiratory 18 Rate Blood Pressure 115/67 120/66 Allergies/Adverse Reactions: Allergies Allergy/AdvReac Type Severity Reaction Status Date / Time Fish Containing Products Allergy Verified 08/07/16 18:36 No Known Drug Allergies Allergy Verified 08/07/16 18:36 Date of last physical exam: 08/07/16 Concur with the findings of this exam: Yes - Substance Abuse/Tx History Hx Alcohol Use: Yes (vodka/2pints daily) Hx Substance Use: Yes (K2) Substance Use Type: Alcohol (started drinking at age of 21), Heroin (15 bags daily) Hx Substance Use Treatment: Yes - Admission Criteria Previous failed treatment: Yes Poor recovery environment: Yes Comorbidities: No Lacks judgement: Yes Mental Status Exam - Mental Status Exam Alert and Oriented to: Time, Place, Person Cognitive Function: Good Patient Appearance: Well Groomed Mood: Hopeful Affect: Appropriate, Mood Congruent Patient Behavior: Appropriate, Cooperative Speech Pattern: Clear, Appropriate Voice Loudness: Normal Thought Process: Intact, Goal Oriented Thought Disorder: Not Present Hallucinations: Denies Suicidal Ideation: Denies Homicidal Ideation: Denies Insight/Judgement: Fair Sleep: Poorly, Difficulty falling asleep Appetite: Good Muscle strength/Tone: Normal Gait/Station: Other (walking with a c ane) Psychiatric Findings - Problem List ([place] 1, 2,3) (1) Nicotine dependence Current Visit: Yes Status: Acute Qualifiers: Nicotine product type: cigarettes Substance use status: in withdrawal Qualified Code(s): F17.213 - Nicotine dependence, cigarettes, with withdrawal (2) Alcohol dependence Current Visit: No Status: Active (3) Opioid dependence Current Visit: No Status: Acute (4) Substance-induced sleep disorder Current Visit: No Status: Acute - Initial Treatment Plan Initial Treatment Plan: will restart Trazodone 50 mg po hs, continue to monitort progress.
--- NOTE | 2016-08-08 14:50 | EKG ---
Test Reason : Blood Pressure : / mmHG Vent. Rate : 070 BPM Atrial Rate : 070 BPM P-R Int : 200 ms QRS Dur : 102 ms QT Int : 394 ms P-R-T Axes : 070 052 063 degrees QTc Int : 425 ms NORMAL SINUS RHYTHM SEPTAL INFARCT (CITED ON OR BEFORE 07-JUL-2016) ABNORMAL ECG WHEN COMPARED WITH ECG OF 07-JUL-2016 17:48, NO SIGNIFICANT CHANGE WAS FOUND Confirmed by ISSAC BUSTOS MD ([id number]) on 08/08/2016 2:50:19 PM Referred By: Confirmed By:ISSAC BUSTOS MD
[2016-08-08] MEDS: BUPRENORPHINE/NALOXONE 2 MG/0.5 MG FILM PACKET SL SCH (17:40)
[2016-08-08] MEDS: traZODone HCL 50 MG TABLET (FP) PO SCH (21:24)
[2016-08-08] MEDS: THIAMINE HCL 100 MG TABLET (FP) PO SCH (21:24)
[2016-08-09] MEDS: APIXABAN 5 MG TABLET PO SCH (10:15)
[2016-08-09] MEDS: ASPIRIN 81 MG CHEWABLE TABLETS PO SCH (10:15)
[2016-08-09] MEDS: METOPROLOL SUCCINATE 25 MG TAB.SR.24H (FP) PO SCH (10:15)
[2016-08-09] MEDS: NICOTINE POLACRILEX 2 MG GUM BUC PRN (10:15)
[2016-08-09] MEDS: BUPRENORPHINE/NALOXONE 8 MG/2 MG FILM PACKET SL SCH (10:15)
[2016-08-09] MEDS: NICOTINE 14 MG/24 HOURS TOPICAL PATCH TD SCH (10:15)
[2016-08-09] MEDS: PRENATAL VITAMINS W/ FOLIC ACID TABLET (FP) PO SCH (10:15)
[2016-08-09] MEDS: BUPRENORPHINE/NALOXONE 2 MG/0.5 MG FILM PACKET SL SCH (18:02)
[2016-08-09] MEDS: traZODone HCL 50 MG TABLET (FP) PO SCH (21:28)
[2016-08-09] MEDS: THIAMINE HCL 100 MG TABLET (FP) PO SCH (21:28)
[2016-08-10] MEDS: APIXABAN 5 MG TABLET PO SCH (10:32)
[2016-08-10] MEDS: BUPRENORPHINE/NALOXONE 8 MG/2 MG FILM PACKET SL SCH (10:32)
[2016-08-10] MEDS: NICOTINE 14 MG/24 HOURS TOPICAL PATCH TD SCH (10:32)
[2016-08-10] MEDS: PRENATAL VITAMINS W/ FOLIC ACID TABLET (FP) PO SCH (10:32)
[2016-08-10] MEDS: ASPIRIN 81 MG CHEWABLE TABLETS PO SCH (10:32)
[2016-08-10] MEDS: METOPROLOL SUCCINATE 25 MG TAB.SR.24H (FP) PO SCH (10:32)
[2016-08-10] MEDS: NICOTINE POLACRILEX 2 MG GUM BUC PRN (10:35)
[2016-08-10] MEDS: BUPRENORPHINE/NALOXONE 2 MG/0.5 MG FILM PACKET SL SCH (17:49)
[2016-08-10] MEDS: traZODone HCL 50 MG TABLET (FP) PO SCH (21:02)
[2016-08-10] MEDS: THIAMINE HCL 100 MG TABLET (FP) PO SCH (21:02)
[2016-08-11] MEDS: BUPRENORPHINE/NALOXONE 8 MG/2 MG FILM PACKET SL SCH (09:40)
[2016-08-11] MEDS: PRENATAL VITAMINS W/ FOLIC ACID TABLET (FP) PO SCH (09:40)
[2016-08-11] MEDS: NICOTINE 14 MG/24 HOURS TOPICAL PATCH TD SCH (09:40)
[2016-08-11] MEDS: METOPROLOL SUCCINATE 25 MG TAB.SR.24H (FP) PO SCH (09:40)
[2016-08-11] MEDS: ASPIRIN 81 MG CHEWABLE TABLETS PO SCH (09:40)
[2016-08-11] MEDS: APIXABAN 5 MG TABLET PO SCH (09:40)
[2016-08-11] MEDS: BUPRENORPHINE/NALOXONE 2 MG/0.5 MG FILM PACKET SL SCH (17:39)
[2016-08-11] MEDS: traZODone HCL 50 MG TABLET (FP) PO SCH (21:07)
[2016-08-11] MEDS: DOCUSATE SODIUM 100 MG CAPSULE (FP) PO SCH (21:07)
[2016-08-11] MEDS: THIAMINE HCL 100 MG TABLET (FP) PO SCH (21:07)
[2016-08-12] MEDS: PRENATAL VITAMINS W/ FOLIC ACID TABLET (FP) PO SCH (10:34)
[2016-08-12] MEDS: APIXABAN 5 MG TABLET PO SCH (10:34)
[2016-08-12] MEDS: BUPRENORPHINE/NALOXONE 8 MG/2 MG FILM PACKET SL SCH (10:34)
[2016-08-12] MEDS: DOCUSATE SODIUM 100 MG CAPSULE (FP) PO SCH ×2 (10:34→21:24)
[2016-08-12] MEDS: NICOTINE 14 MG/24 HOURS TOPICAL PATCH TD SCH (10:34)
[2016-08-12] MEDS: METOPROLOL SUCCINATE 25 MG TAB.SR.24H (FP) PO SCH (10:34)
[2016-08-12] MEDS: ASPIRIN 81 MG CHEWABLE TABLETS PO SCH (10:34)
[2016-08-12] MEDS: BUPRENORPHINE/NALOXONE 2 MG/0.5 MG FILM PACKET SL SCH (16:50)
[2016-08-12] MEDS: THIAMINE HCL 100 MG TABLET (FP) PO SCH (21:24)
[2016-08-12] MEDS: traZODone HCL 50 MG TABLET (FP) PO SCH (21:24)
[2016-08-13] MEDS: PRENATAL VITAMINS W/ FOLIC ACID TABLET (FP) PO SCH (10:48)
[2016-08-13] MEDS: METOPROLOL SUCCINATE 25 MG TAB.SR.24H (FP) PO SCH (10:49)
[2016-08-13] MEDS: APIXABAN 5 MG TABLET PO SCH (10:49)
[2016-08-13] MEDS: NICOTINE 14 MG/24 HOURS TOPICAL PATCH TD SCH (10:49)
[2016-08-13] MEDS: BUPRENORPHINE/NALOXONE 8 MG/2 MG FILM PACKET SL SCH (10:49)
[2016-08-13] MEDS: ASPIRIN 81 MG CHEWABLE TABLETS PO SCH (10:49)
[2016-08-13] MEDS: DOCUSATE SODIUM 100 MG CAPSULE (FP) PO SCH ×2 (10:49→21:31)
[2016-08-13] MEDS: COLLOIDAL OATMEAL 1 BAR EACH TP PRN (15:42)
[2016-08-13] MEDS: BUPRENORPHINE/NALOXONE 2 MG/0.5 MG FILM PACKET SL SCH (17:01)
[2016-08-13] MEDS: traZODone HCL 50 MG TABLET (FP) PO SCH (21:31)
[2016-08-13] MEDS: THIAMINE HCL 100 MG TABLET (FP) PO SCH (21:31)
[2016-08-14] MEDS: PRENATAL VITAMINS W/ FOLIC ACID TABLET (FP) PO SCH (09:50)
[2016-08-14] MEDS: ASPIRIN 81 MG CHEWABLE TABLETS PO SCH (09:50)
[2016-08-14] MEDS: NICOTINE 14 MG/24 HOURS TOPICAL PATCH TD SCH (09:50)
[2016-08-14] MEDS: DOCUSATE SODIUM 100 MG CAPSULE (FP) PO SCH ×2 (09:50→21:21)
[2016-08-14] MEDS: BUPRENORPHINE/NALOXONE 8 MG/2 MG FILM PACKET SL SCH (09:50)
[2016-08-14] MEDS: APIXABAN 5 MG TABLET PO SCH (09:50)
[2016-08-14] MEDS: METOPROLOL SUCCINATE 25 MG TAB.SR.24H (FP) PO SCH (11:00)
[2016-08-14] MEDS: BUPRENORPHINE/NALOXONE 2 MG/0.5 MG FILM PACKET SL SCH (16:35)
[2016-08-14] MEDS: THIAMINE HCL 100 MG TABLET (FP) PO SCH (21:21)
[2016-08-14] MEDS: traZODone HCL 50 MG TABLET (FP) PO SCH (21:21)
[2016-08-15] MEDS: BUPRENORPHINE/NALOXONE 8 MG/2 MG FILM PACKET SL SCH (09:33)
[2016-08-15] MEDS: DOCUSATE SODIUM 100 MG CAPSULE (FP) PO SCH ×2 (09:33→21:04)
[2016-08-15] MEDS: ASPIRIN 81 MG CHEWABLE TABLETS PO SCH (09:33)
[2016-08-15] MEDS: METOPROLOL SUCCINATE 25 MG TAB.SR.24H (FP) PO SCH (09:33)
[2016-08-15] MEDS: APIXABAN 5 MG TABLET PO SCH (09:33)
[2016-08-15] MEDS: PRENATAL VITAMINS W/ FOLIC ACID TABLET (FP) PO SCH (09:34)
[2016-08-15] MEDS: NICOTINE 14 MG/24 HOURS TOPICAL PATCH TD SCH (09:34)
[2016-08-15] MEDS: BUPRENORPHINE/NALOXONE 2 MG/0.5 MG FILM PACKET SL SCH (16:49)
[2016-08-15] MEDS: traZODone HCL 50 MG TABLET (FP) PO SCH (21:04)
[2016-08-15] MEDS: THIAMINE HCL 100 MG TABLET (FP) PO SCH (21:04)
[2016-08-16] MEDS: BUPRENORPHINE/NALOXONE 8 MG/2 MG FILM PACKET SL SCH (10:46)
[2016-08-16] MEDS: APIXABAN 5 MG TABLET PO SCH (10:46)
[2016-08-16] MEDS: METOPROLOL SUCCINATE 25 MG TAB.SR.24H (FP) PO SCH (10:46)
[2016-08-16] MEDS: ASPIRIN 81 MG CHEWABLE TABLETS PO SCH (10:46)
[2016-08-16] MEDS: PRENATAL VITAMINS W/ FOLIC ACID TABLET (FP) PO SCH (10:46)
[2016-08-16] MEDS: NICOTINE 14 MG/24 HOURS TOPICAL PATCH TD SCH (10:46)
[2016-08-16] MEDS: DOCUSATE SODIUM 100 MG CAPSULE (FP) PO SCH ×2 (10:46→21:30)
[2016-08-16] MEDS: BUPRENORPHINE/NALOXONE 2 MG/0.5 MG FILM PACKET SL SCH (16:54)
[2016-08-16] MEDS: traZODone HCL 50 MG TABLET (FP) PO SCH (21:30)
[2016-08-16] MEDS: THIAMINE HCL 100 MG TABLET (FP) PO SCH (21:30)
[2016-08-17] MEDS: METOPROLOL SUCCINATE 25 MG TAB.SR.24H (FP) PO SCH (10:42)
[2016-08-17] MEDS: DOCUSATE SODIUM 100 MG CAPSULE (FP) PO SCH ×2 (10:42→21:07)
[2016-08-17] MEDS: ASPIRIN 81 MG CHEWABLE TABLETS PO SCH (10:42)
[2016-08-17] MEDS: BUPRENORPHINE/NALOXONE 8 MG/2 MG FILM PACKET SL SCH (10:43)
[2016-08-17] MEDS: NICOTINE 14 MG/24 HOURS TOPICAL PATCH TD SCH (10:43)
[2016-08-17] MEDS: PRENATAL VITAMINS W/ FOLIC ACID TABLET (FP) PO SCH (10:43)
[2016-08-17] MEDS: APIXABAN 5 MG TABLET PO SCH (10:43)
[2016-08-17] MEDS: BUPRENORPHINE/NALOXONE 2 MG/0.5 MG FILM PACKET SL SCH (16:56)
[2016-08-17] MEDS: THIAMINE HCL 100 MG TABLET (FP) PO SCH (21:07)
[2016-08-17] MEDS: traZODone HCL 50 MG TABLET (FP) PO SCH (21:07)
[2016-08-17] MEDS: diphenhydrAMINE HCL 50 MG CAPSULE PO PRN (21:20)
--- NOTE | 2016-08-17 23:17 | PN ---
[facility] Progress Note Note: received nurse informed, patient is allergic to fish, had fish around 6 pm, received one dose benadryl 50 mg, appears less facial redness observed patient ambulating on hallway, alert oriented x 3, no acute distress, denies trouble breathing, skin warm dry speech clearly patient refuses epinephrin pen due to phobic to needle. benadryl 100 mg po bid x 3 days. bp 120/64, ap 67, resp 18. temp 97.7 o2sat 99% first dose benadryl now continue monitor closely
[2016-08-17] MEDS: diphenhydrAMINE HCL 50 MG CAPSULE PO SCH (23:22)
[2016-08-18] MEDS: ASPIRIN 81 MG CHEWABLE TABLETS PO SCH (10:45)
[2016-08-18] MEDS: diphenhydrAMINE HCL 50 MG CAPSULE PO SCH (10:46)
[2016-08-18] MEDS: APIXABAN 5 MG TABLET PO SCH (10:46)
[2016-08-18] MEDS: DOCUSATE SODIUM 100 MG CAPSULE (FP) PO SCH ×2 (10:46→21:15)
[2016-08-18] MEDS: NICOTINE 14 MG/24 HOURS TOPICAL PATCH TD SCH (10:46)
[2016-08-18] MEDS: PRENATAL VITAMINS W/ FOLIC ACID TABLET (FP) PO SCH (10:46)
[2016-08-18] MEDS: METOPROLOL SUCCINATE 25 MG TAB.SR.24H (FP) PO SCH (10:46)
[2016-08-18] MEDS: BUPRENORPHINE/NALOXONE 8 MG/2 MG FILM PACKET SL SCH (10:46)
--- NOTE | 2016-08-18 12:45 | PN ---
[facility] Progress Note Note: SWELLING FACIAL AREA SUBSIDED,NO EDEMA OF PHARYX OR UVULA,NO SOB, MUCH IMPROVED LUNG NO WHEEEZING CONTINUE BENADRYL 50 MGS PO Q 6 HRS PRN FOR ITCHING 2% BENADRYL CREAM TOPICAL BID
[2016-08-18] MEDS: BUPRENORPHINE/NALOXONE 2 MG/0.5 MG FILM PACKET SL SCH (16:43)
[2016-08-18] MEDS: traZODone HCL 50 MG TABLET (FP) PO SCH (21:15)
[2016-08-18] MEDS: THIAMINE HCL 100 MG TABLET (FP) PO SCH (21:15)
[2016-08-18] MEDS: diphenhydrAMINE HCL 50 MG CAPSULE PO PRN (21:17)
[2016-08-19] MEDS: PRENATAL VITAMINS W/ FOLIC ACID TABLET (FP) PO SCH (10:16)
[2016-08-19] MEDS: DOCUSATE SODIUM 100 MG CAPSULE (FP) PO SCH ×2 (10:17→21:05)
[2016-08-19] MEDS: METOPROLOL SUCCINATE 25 MG TAB.SR.24H (FP) PO SCH (10:17)
[2016-08-19] MEDS: NICOTINE 14 MG/24 HOURS TOPICAL PATCH TD SCH (10:17)
[2016-08-19] MEDS: APIXABAN 5 MG TABLET PO SCH (10:17)
[2016-08-19] MEDS: ASPIRIN 81 MG CHEWABLE TABLETS PO SCH (10:17)
[2016-08-19] MEDS: BUPRENORPHINE/NALOXONE 8 MG/2 MG FILM PACKET SL SCH (10:17)
[2016-08-19] MEDS: BUPRENORPHINE/NALOXONE 2 MG/0.5 MG FILM PACKET SL SCH (16:51)
[2016-08-19] MEDS: THIAMINE HCL 100 MG TABLET (FP) PO SCH (21:05)
[2016-08-19] MEDS: traZODone HCL 50 MG TABLET (FP) PO SCH (21:05)
[2016-08-19] MEDS: diphenhydrAMINE HCL 50 MG CAPSULE PO PRN (21:06)
[2016-08-20] MEDS: METOPROLOL SUCCINATE 25 MG TAB.SR.24H (FP) PO SCH (10:18)
[2016-08-20] MEDS: APIXABAN 5 MG TABLET PO SCH (10:18)
[2016-08-20] MEDS: BUPRENORPHINE/NALOXONE 8 MG/2 MG FILM PACKET SL SCH (10:18)
[2016-08-20] MEDS: DOCUSATE SODIUM 100 MG CAPSULE (FP) PO SCH ×2 (10:18→21:05)
[2016-08-20] MEDS: NICOTINE 14 MG/24 HOURS TOPICAL PATCH TD SCH (10:18)
[2016-08-20] MEDS: PRENATAL VITAMINS W/ FOLIC ACID TABLET (FP) PO SCH (10:18)
[2016-08-20] MEDS: ASPIRIN 81 MG CHEWABLE TABLETS PO SCH (10:18)
[2016-08-20] MEDS: BUPRENORPHINE/NALOXONE 2 MG/0.5 MG FILM PACKET SL SCH (16:41)
[2016-08-20] MEDS: traZODone HCL 50 MG TABLET (FP) PO SCH (21:05)
[2016-08-20] MEDS: THIAMINE HCL 100 MG TABLET (FP) PO SCH (21:05)
[2016-08-20] MEDS: diphenhydrAMINE HCL 50 MG CAPSULE PO PRN (21:06)
[2016-08-21] MEDS: PRENATAL VITAMINS W/ FOLIC ACID TABLET (FP) PO SCH (10:19)
[2016-08-21] MEDS: ASPIRIN 81 MG CHEWABLE TABLETS PO SCH (10:19)
[2016-08-21] MEDS: APIXABAN 5 MG TABLET PO SCH (10:19)
[2016-08-21] MEDS: BUPRENORPHINE/NALOXONE 8 MG/2 MG FILM PACKET SL SCH (10:19)
[2016-08-21] MEDS: DOCUSATE SODIUM 100 MG CAPSULE (FP) PO SCH ×2 (10:19→21:27)
[2016-08-21] MEDS: METOPROLOL SUCCINATE 25 MG TAB.SR.24H (FP) PO SCH (10:19)
[2016-08-21] MEDS: NICOTINE 14 MG/24 HOURS TOPICAL PATCH TD SCH (10:20)
[2016-08-21] MEDS: COLLOIDAL OATMEAL 1 BAR EACH TP PRN (15:10)
[2016-08-21] MEDS: BUPRENORPHINE/NALOXONE 2 MG/0.5 MG FILM PACKET SL SCH (16:49)
[2016-08-21] MEDS: traZODone HCL 50 MG TABLET (FP) PO SCH (21:27)
[2016-08-21] MEDS: THIAMINE HCL 100 MG TABLET (FP) PO SCH (21:27)
[2016-08-21] MEDS: diphenhydrAMINE HCL 50 MG CAPSULE PO PRN (21:28)
[2016-08-22] MEDS: BUPRENORPHINE/NALOXONE 8 MG/2 MG FILM PACKET SL SCH (10:13)
[2016-08-22] MEDS: APIXABAN 5 MG TABLET PO SCH (10:13)
[2016-08-22] MEDS: DOCUSATE SODIUM 100 MG CAPSULE (FP) PO SCH ×2 (10:13→21:11)
[2016-08-22] MEDS: METOPROLOL SUCCINATE 25 MG TAB.SR.24H (FP) PO SCH (10:13)
[2016-08-22] MEDS: NICOTINE 14 MG/24 HOURS TOPICAL PATCH TD SCH (10:13)
[2016-08-22] MEDS: PRENATAL VITAMINS W/ FOLIC ACID TABLET (FP) PO SCH (10:13)
[2016-08-22] MEDS: ASPIRIN 81 MG CHEWABLE TABLETS PO SCH (10:13)
[2016-08-22] MEDS: BUPRENORPHINE/NALOXONE 2 MG/0.5 MG FILM PACKET SL SCH (16:56)
[2016-08-22] MEDS: traZODone HCL 50 MG TABLET (FP) PO SCH (21:11)
[2016-08-22] MEDS: THIAMINE HCL 100 MG TABLET (FP) PO SCH (21:11)
[2016-08-22] MEDS: diphenhydrAMINE HCL 50 MG CAPSULE PO PRN (21:11)
[2016-08-23] MEDS: APIXABAN 5 MG TABLET PO SCH (10:34)
[2016-08-23] MEDS: METOPROLOL SUCCINATE 25 MG TAB.SR.24H (FP) PO SCH (10:34)
[2016-08-23] MEDS: ASPIRIN 81 MG CHEWABLE TABLETS PO SCH (10:34)
[2016-08-23] MEDS: DOCUSATE SODIUM 100 MG CAPSULE (FP) PO SCH ×2 (10:34→21:09)
[2016-08-23] MEDS: PRENATAL VITAMINS W/ FOLIC ACID TABLET (FP) PO SCH (10:34)
[2016-08-23] MEDS: NICOTINE 14 MG/24 HOURS TOPICAL PATCH TD SCH (10:35)
[2016-08-23] MEDS: BUPRENORPHINE/NALOXONE 8 MG/2 MG FILM PACKET SL SCH (10:35)
[2016-08-23] MEDS: BUPRENORPHINE/NALOXONE 2 MG/0.5 MG FILM PACKET SL SCH (16:57)
[2016-08-23] MEDS: traZODone HCL 50 MG TABLET (FP) PO SCH (21:09)
[2016-08-23] MEDS: THIAMINE HCL 100 MG TABLET (FP) PO SCH (21:09)
[2016-08-23] MEDS: diphenhydrAMINE HCL 50 MG CAPSULE PO PRN (21:10)
[2016-08-24] MEDS: ACETAMINOPHEN 325 MG TABLET (FP) PO PRN (07:40)
--- NOTE | 2016-08-24 07:40 | PN ---
[facility] Progress Note Note: PT. ASSESSED AFTER FALLING IN HIS ROOM. HE STATES HE SLIPPED AND HIT HIS SHOULDER WITH THE SIDE OF HIS BED. HE REPORTS HE HAD HIS SHOES ON AND THERE WAS NOT OBSTRUCTING HIS WALKWAY. SKIN INTACT, FULL ROM, NO BRUISING NOTED. HE RATES THE PAIN 5/10. PT. TO TAKE PRN TYLENOL FOR PAIN. FALL PRECAUTION 2 INITIATED. WILL CONTINUE TO MONITOR.
[2016-08-24] MEDS: METOPROLOL SUCCINATE 25 MG TAB.SR.24H (FP) PO SCH (10:40)
[2016-08-24] MEDS: BUPRENORPHINE/NALOXONE 8 MG/2 MG FILM PACKET SL SCH (10:40)
[2016-08-24] MEDS: ASPIRIN 81 MG CHEWABLE TABLETS PO SCH (10:40)
[2016-08-24] MEDS: APIXABAN 5 MG TABLET PO SCH (10:40)
[2016-08-24] MEDS: DOCUSATE SODIUM 100 MG CAPSULE (FP) PO SCH ×2 (10:40→21:34)
[2016-08-24] MEDS: NICOTINE 14 MG/24 HOURS TOPICAL PATCH TD SCH (10:40)
[2016-08-24] MEDS: PRENATAL VITAMINS W/ FOLIC ACID TABLET (FP) PO SCH (10:40)
[2016-08-24] MEDS: BUPRENORPHINE/NALOXONE 2 MG/0.5 MG FILM PACKET SL SCH (16:38)
[2016-08-24] MEDS: THIAMINE HCL 100 MG TABLET (FP) PO SCH (21:34)
[2016-08-24] MEDS: traZODone HCL 50 MG TABLET (FP) PO SCH (21:34)
[2016-08-25] MEDS: ASPIRIN 81 MG CHEWABLE TABLETS PO SCH (10:04)
[2016-08-25] MEDS: DOCUSATE SODIUM 100 MG CAPSULE (FP) PO SCH ×2 (10:04→21:20)
[2016-08-25] MEDS: BUPRENORPHINE/NALOXONE 8 MG/2 MG FILM PACKET SL SCH (10:04)
[2016-08-25] MEDS: METOPROLOL SUCCINATE 25 MG TAB.SR.24H (FP) PO SCH (10:04)
[2016-08-25] MEDS: APIXABAN 5 MG TABLET PO SCH (10:04)
[2016-08-25] MEDS: PRENATAL VITAMINS W/ FOLIC ACID TABLET (FP) PO SCH (10:05)
[2016-08-25] MEDS: NICOTINE 14 MG/24 HOURS TOPICAL PATCH TD SCH (10:06)
[2016-08-25] MEDS: BUPRENORPHINE/NALOXONE 2 MG/0.5 MG FILM PACKET SL SCH (16:59)
[2016-08-25] MEDS: traZODone HCL 50 MG TABLET (FP) PO SCH (21:20)
[2016-08-25] MEDS: THIAMINE HCL 100 MG TABLET (FP) PO SCH (21:20)
[2016-08-25] MEDS: diphenhydrAMINE HCL 50 MG CAPSULE PO PRN (21:21)
[2016-08-26] MEDS: ASPIRIN 81 MG CHEWABLE TABLETS PO SCH (10:17)
[2016-08-26] MEDS: BUPRENORPHINE/NALOXONE 8 MG/2 MG FILM PACKET SL SCH (10:17)
[2016-08-26] MEDS: METOPROLOL SUCCINATE 25 MG TAB.SR.24H (FP) PO SCH (10:17)
[2016-08-26] MEDS: PRENATAL VITAMINS W/ FOLIC ACID TABLET (FP) PO SCH (10:17)
[2016-08-26] MEDS: DOCUSATE SODIUM 100 MG CAPSULE (FP) PO SCH ×2 (10:17→21:26)
[2016-08-26] MEDS: APIXABAN 5 MG TABLET PO SCH (10:17)
[2016-08-26] MEDS: NICOTINE 14 MG/24 HOURS TOPICAL PATCH TD SCH (10:17)
[2016-08-26] MEDS: BUPRENORPHINE/NALOXONE 2 MG/0.5 MG FILM PACKET SL SCH (17:37)
[2016-08-26] MEDS: diphenhydrAMINE HCL 50 MG CAPSULE PO PRN (21:26)
[2016-08-26] MEDS: traZODone HCL 50 MG TABLET (FP) PO SCH (21:26)
[2016-08-26] MEDS: THIAMINE HCL 100 MG TABLET (FP) PO SCH (21:26)
[2016-08-27] MEDS: APIXABAN 5 MG TABLET PO SCH (10:10)
[2016-08-27] MEDS: METOPROLOL SUCCINATE 25 MG TAB.SR.24H (FP) PO SCH (10:10)
[2016-08-27] MEDS: NICOTINE 14 MG/24 HOURS TOPICAL PATCH TD SCH (10:10)
[2016-08-27] MEDS: BUPRENORPHINE/NALOXONE 8 MG/2 MG FILM PACKET SL SCH (10:10)
[2016-08-27] MEDS: ASPIRIN 81 MG CHEWABLE TABLETS PO SCH (10:10)
[2016-08-27] MEDS: DOCUSATE SODIUM 100 MG CAPSULE (FP) PO SCH ×2 (10:10→21:26)
[2016-08-27] MEDS: PRENATAL VITAMINS W/ FOLIC ACID TABLET (FP) PO SCH (10:10)
[2016-08-27] MEDS: BUPRENORPHINE/NALOXONE 2 MG/0.5 MG FILM PACKET SL SCH (17:00)
[2016-08-27] MEDS: traZODone HCL 50 MG TABLET (FP) PO SCH (21:26)
[2016-08-27] MEDS: THIAMINE HCL 100 MG TABLET (FP) PO SCH (21:26)
[2016-08-27] MEDS: diphenhydrAMINE HCL 50 MG CAPSULE PO PRN (21:26)
[2016-08-28] MEDS: APIXABAN 5 MG TABLET PO SCH (10:33)
[2016-08-28] MEDS: DOCUSATE SODIUM 100 MG CAPSULE (FP) PO SCH ×2 (10:33→21:38)
[2016-08-28] MEDS: NICOTINE 14 MG/24 HOURS TOPICAL PATCH TD SCH (10:33)
[2016-08-28] MEDS: METOPROLOL SUCCINATE 25 MG TAB.SR.24H (FP) PO SCH (10:33)
[2016-08-28] MEDS: ASPIRIN 81 MG CHEWABLE TABLETS PO SCH (10:33)
[2016-08-28] MEDS: PRENATAL VITAMINS W/ FOLIC ACID TABLET (FP) PO SCH (10:34)
[2016-08-28] MEDS ORDERED: BUPRENORPHINE/NALOXONE 8 MG/2 MG FILM PACKET SL ONE (13:45)
[2016-08-28] MEDS: BUPRENORPHINE/NALOXONE 8 MG/2 MG FILM PACKET SL SCH ×2 (14:32→21:38)
[2016-08-28] MEDS: traZODone HCL 50 MG TABLET (FP) PO SCH (21:38)
[2016-08-28] MEDS: THIAMINE HCL 100 MG TABLET (FP) PO SCH (21:38)
[2016-08-28] MEDS: diphenhydrAMINE HCL 50 MG CAPSULE PO PRN (21:39)
[2016-08-28] MEDS: COLLOIDAL OATMEAL 1 BAR EACH TP PRN (22:08)
[2016-08-29] MEDS: METOPROLOL SUCCINATE 25 MG TAB.SR.24H (FP) PO SCH (10:14)
[2016-08-29] MEDS: PRENATAL VITAMINS W/ FOLIC ACID TABLET (FP) PO SCH (10:14)
[2016-08-29] MEDS: ASPIRIN 81 MG CHEWABLE TABLETS PO SCH (10:14)
[2016-08-29] MEDS: DOCUSATE SODIUM 100 MG CAPSULE (FP) PO SCH ×2 (10:14→21:15)
[2016-08-29] MEDS: APIXABAN 5 MG TABLET PO SCH (10:15)
[2016-08-29] MEDS: NICOTINE 14 MG/24 HOURS TOPICAL PATCH TD SCH (10:15)
[2016-08-29] MEDS: BUPRENORPHINE/NALOXONE 8 MG/2 MG FILM PACKET SL SCH ×2 (13:00→21:16)
[2016-08-29] MEDS: diphenhydrAMINE HCL 50 MG CAPSULE PO PRN ×2 (18:27→21:17)
--- NOTE | 2016-08-29 19:14 | PN ---
[facility] Progress Note Note: received nurse informed, patient is allergic to fish, fish was served for dinner , patient denies ingestion of fish but "cleaning the table after dinner" has fish like reaction on face observed patient ambulating in room, alert, oriented x 3, steady gait, speech clearly, "had benadryl" denies shortness of breath, skin warm dry brisk capillary refilled, oropharygeal pink moist smooth, no swell, no lesion, neck full range of motion, S1S2 RRR, continue benadryl prn and recommend shower, change clothing continue rehab
[2016-08-29] MEDS: traZODone HCL 50 MG TABLET (FP) PO SCH (21:15)
[2016-08-29] MEDS: THIAMINE HCL 100 MG TABLET (FP) PO SCH (21:16)
[2016-08-30] MEDS: DOCUSATE SODIUM 100 MG CAPSULE (FP) PO SCH ×2 (10:32→21:18)
[2016-08-30] MEDS: PRENATAL VITAMINS W/ FOLIC ACID TABLET (FP) PO SCH (10:32)
[2016-08-30] MEDS: APIXABAN 5 MG TABLET PO SCH (10:32)
[2016-08-30] MEDS: METOPROLOL SUCCINATE 25 MG TAB.SR.24H (FP) PO SCH (10:32)
[2016-08-30] MEDS: ASPIRIN 81 MG CHEWABLE TABLETS PO SCH (10:32)
[2016-08-30] MEDS: NICOTINE 14 MG/24 HOURS TOPICAL PATCH TD SCH (10:33)
[2016-08-30] MEDS: diphenhydrAMINE HCL 50 MG CAPSULE PO PRN ×2 (10:34→21:19)
[2016-08-30] MEDS: BUPRENORPHINE/NALOXONE 8 MG/2 MG FILM PACKET SL SCH ×2 (11:49→21:18)
[2016-08-30] MEDS: THIAMINE HCL 100 MG TABLET (FP) PO SCH (21:18)
[2016-08-30] MEDS: traZODone HCL 50 MG TABLET (FP) PO SCH (21:18)
[2016-08-31] MEDS: NICOTINE 14 MG/24 HOURS TOPICAL PATCH TD SCH (10:33)
[2016-08-31] MEDS: ASPIRIN 81 MG CHEWABLE TABLETS PO SCH (10:33)
[2016-08-31] MEDS: APIXABAN 5 MG TABLET PO SCH (10:33)
[2016-08-31] MEDS: DOCUSATE SODIUM 100 MG CAPSULE (FP) PO SCH ×2 (10:33→21:04)
[2016-08-31] MEDS: METOPROLOL SUCCINATE 25 MG TAB.SR.24H (FP) PO SCH (10:33)
[2016-08-31] MEDS: PRENATAL VITAMINS W/ FOLIC ACID TABLET (FP) PO SCH (10:33)
[2016-08-31] MEDS: BUPRENORPHINE/NALOXONE 8 MG/2 MG FILM PACKET SL SCH ×2 (11:44→21:04)
[2016-08-31] MEDS: THIAMINE HCL 100 MG TABLET (FP) PO SCH (21:03)
[2016-08-31] MEDS: diphenhydrAMINE HCL 50 MG CAPSULE PO PRN (21:04)
[2016-08-31] MEDS: traZODone HCL 50 MG TABLET (FP) PO SCH (21:04)
[2016-09-01] MEDS: NICOTINE 14 MG/24 HOURS TOPICAL PATCH TD SCH (10:02)
[2016-09-01] MEDS: DOCUSATE SODIUM 100 MG CAPSULE (FP) PO SCH ×2 (10:02→21:22)
[2016-09-01] MEDS: METOPROLOL SUCCINATE 25 MG TAB.SR.24H (FP) PO SCH (10:02)
[2016-09-01] MEDS: APIXABAN 5 MG TABLET PO SCH (10:02)
[2016-09-01] MEDS: PRENATAL VITAMINS W/ FOLIC ACID TABLET (FP) PO SCH (10:02)
[2016-09-01] MEDS: ASPIRIN 81 MG CHEWABLE TABLETS PO SCH (10:02)
[2016-09-01] MEDS: BUPRENORPHINE/NALOXONE 8 MG/2 MG FILM PACKET SL SCH ×2 (11:46→21:22)
[2016-09-01] MEDS: traZODone HCL 50 MG TABLET (FP) PO SCH (21:22)
[2016-09-01] MEDS: diphenhydrAMINE HCL 50 MG CAPSULE PO PRN (21:22)
[2016-09-01] MEDS: THIAMINE HCL 100 MG TABLET (FP) PO SCH (21:22)
[2016-09-02] MEDS: METOPROLOL SUCCINATE 25 MG TAB.SR.24H (FP) PO SCH (10:22)
[2016-09-02] MEDS: APIXABAN 5 MG TABLET PO SCH (10:22)
[2016-09-02] MEDS: DOCUSATE SODIUM 100 MG CAPSULE (FP) PO SCH ×2 (10:22→21:23)
[2016-09-02] MEDS: ASPIRIN 81 MG CHEWABLE TABLETS PO SCH (10:22)
[2016-09-02] MEDS: PRENATAL VITAMINS W/ FOLIC ACID TABLET (FP) PO SCH (10:22)
[2016-09-02] MEDS: NICOTINE 14 MG/24 HOURS TOPICAL PATCH TD SCH (10:23)
[2016-09-02] MEDS: BUPRENORPHINE/NALOXONE 8 MG/2 MG FILM PACKET SL SCH ×2 (12:13→21:23)
[2016-09-02] MEDS: diphenhydrAMINE HCL 50 MG CAPSULE PO PRN (21:23)
[2016-09-02] MEDS: traZODone HCL 50 MG TABLET (FP) PO SCH (21:23)
[2016-09-02] MEDS: THIAMINE HCL 100 MG TABLET (FP) PO SCH (21:23)
[2016-09-03] MEDS: METOPROLOL SUCCINATE 25 MG TAB.SR.24H (FP) PO SCH (10:32)
[2016-09-03] MEDS: PRENATAL VITAMINS W/ FOLIC ACID TABLET (FP) PO SCH (10:32)
[2016-09-03] MEDS: APIXABAN 5 MG TABLET PO SCH (10:32)
[2016-09-03] MEDS: DOCUSATE SODIUM 100 MG CAPSULE (FP) PO SCH ×2 (10:32→21:17)
[2016-09-03] MEDS: ASPIRIN 81 MG CHEWABLE TABLETS PO SCH (10:32)
[2016-09-03] MEDS: NICOTINE 14 MG/24 HOURS TOPICAL PATCH TD SCH (10:34)
[2016-09-03] MEDS: BUPRENORPHINE/NALOXONE 8 MG/2 MG FILM PACKET SL SCH ×2 (11:58→21:18)
[2016-09-03] MEDS: ACETAMINOPHEN 325 MG TABLET (FP) PO PRN (18:29)
[2016-09-03] MEDS: traZODone HCL 50 MG TABLET (FP) PO SCH (21:17)
[2016-09-03] MEDS: THIAMINE HCL 100 MG TABLET (FP) PO SCH (21:17)
[2016-09-03] MEDS: diphenhydrAMINE HCL 50 MG CAPSULE PO PRN (21:18)
[2016-09-04] MEDS: diphenhydrAMINE HCL 50 MG CAPSULE PO PRN (06:35)
[2016-09-04 06:58] VITALS: BP 121/71; PULSE 81; TEMP 97.8
--- NOTE | 2016-09-04 09:40 | PN ---
Psychiatric Progress Note Vital Signs: Vital Signs Period Temp Pulse Resp BP Sys/Dean Pulse Ox Last 24 Hr 97.8 F 81 16-16 121/71 Date of Session: 09/04/16 Chief Complaint:: discharge visit HPI: Patient has addressed alcohol, opioiod, nicotien dependence comorbid substance induced sleep disorder. ROS: HTN, surgical hx of cardiac stent placement in 2012. Current Medications: Active Medications Generic Name Dose Route Start Last Admin Trade Name Freq PRN Reason Stop Dose Admin Acetaminophen 650 mg 08/07/16 19:29 09/03/16 18:29 Tylenol - PO 650 mg Q4H PRN Administration PAIN Al Hydroxide/Mg Hydroxide 30 ml 08/07/16 19:29 Mylanta Oral Suspension - PO Q6H PRN DYSPEPSIA Albuterol Sulfate 2 puff 08/07/16 19:32 08/24/16 21:34 Ventolin Hfa Inhaler - IH 2 puff Q4H PRN Administration ASTHMA Apixaban 5 mg 08/08/16 10:00 09/03/16 10:32 Eliquis - PO 5 mg DAILY JANEE Administration Aspirin 81 mg 08/09/16 10:00 09/03/16 10:32 Asa - PO 81 mg DAILY JANEE Administration Buprenorphine/Naloxone 1 each 08/28/16 12:00 09/03/16 21:18 Suboxone 8mg/2mg Sl Film - SL 09/04/16 11:59 1 each BID@1200,2200 JANEE Administration Colloidal Oatmeal 1 applic 08/08/16 06:36 08/28/16 22:08 Aveeno Soap - TP 1 bar DAILY PRN Administration HYGEINE Diphenhydramine HCl 50 mg 08/07/16 19:29 09/03/16 21:18 Benadryl - PO 50 mg HSMR1 PRN Administration INSOMNIA Diphenhydramine HCl 50 mg 08/18/16 12:52 09/04/16 06:35 Benadryl - PO 50 mg Q6H PRN Administration FOR ITCHING Docusate Sodium 100 mg 08/11/16 22:00 09/03/16 21:17 Colace - PO 100 mg BID JANEE Administration Eucalyptus/Menthol/Phenol/Sorbitol 1 each 08/07/16 19:29 Cepastat Lozenge - MM Q4H PRN SORE THROAT Guaifenesin 10 ml 08/07/16 19:29 Robitussin Dm - PO Q6H PRN COUGH Loperamide HCl 4 mg 08/07/16 19:29 Imodium - PO Q6H PRN DIARRHEA Magnesium Citrate 300 ml 08/07/16 19:29 Citroma - PO Q48H PRN CONSTIPATION Magnesium Hydroxide 30 ml 08/07/16 19:29 Milk Of Magnesia - PO DAILY PRN CONSTIPATION Metoprolol Succinate 25 mg 08/08/16 10:00 09/03/16 10:32 Toprol Xl - PO 25 mg DAILY JANEE Administration Nicotine 14 mg 08/08/16 10:00 09/03/16 10:34 Nicoderm Patch - TD Not Given DAILY JANEE Nicotine Polacrilex 2 mg 08/07/16 19:34 08/10/16 10:35 Nicorette Gum - BUC 2 mg Q2H PRN Administration NICOTINE REPLACEMENT RX Multivit/Folic Acid/Iron 1 tab 08/08/16 10:00 09/03/16 10:32 Vitamins (Sjr) - PO 1 tab DAILY JANEE Administration Pseudoephedrine/Triprolidine 1 combo 08/07/16 19:29 Actifed - PO TID PRN NASAL CONGESTION Thiamine HCl 100 mg 08/07/16 22:00 09/03/16 21:17 Vitamin B1 - PO 100 mg HS JANEE Administration Trazodone HCl 50 mg 08/08/16 22:00 09/03/16 21:17 Desyrel - PO 50 mg HS JANEE Administration Zinc Acetate/Diphenhydramine 1 applic 08/18/16 13:00 09/03/16 21:17 Benadryl 2% Cream TP Not Given BID JANEE Current Side Effect: No Lab tests ordered: No Lab tests reviewed: Yes Provider note:: Patient has completed today his treatment and met his goals, will continue to address his isues at [facility] program. Patient gained insights into his addiction and motivated to continue maintain abstinence, patient was encouraged to utilize all supports available to prevent relapses. Trazodone well tolerated, scripts provided, patient is stable for discharge. Total face to face time:: 30 Mental Status Exam - Mental Status Exam Alert and Oriented to: Time, Place, Person Cognitive Function: Good Patient Appearance: Well Groomed Mood: Hopeful Affect: Appropriate, Mood Congruent Patient Behavior: Appropriate, Cooperative Speech Pattern: Clear, Appropriate Voice Loudness: Normal Thought Process: Intact, Goal Oriented Thought Disorder: Not Present Hallucinations: Denies Suicidal Ideation: Denies Homicidal Ideation: Denies Insight/Judgement: Fair Sleep: Fair Appetite: Good Muscle strength/Tone: Normal Gait/Station: Normal Psychiatric Treatment Plan - Problem List (1) Nicotine dependence Qualifiers: Nicotine product type: cigarettes Substance use status: in withdrawal Qualified Code(s): F17.213 - Nicotine dependence, cigarettes, with withdrawal
[2016-09-04] MEDS: PRENATAL VITAMINS W/ FOLIC ACID TABLET (FP) PO SCH (10:05)
[2016-09-04] MEDS: NICOTINE 14 MG/24 HOURS TOPICAL PATCH TD SCH (10:05)
[2016-09-04] MEDS: ASPIRIN 81 MG CHEWABLE TABLETS PO SCH (10:05)
[2016-09-04] MEDS: APIXABAN 5 MG TABLET PO SCH (10:05)
[2016-09-04] MEDS: DOCUSATE SODIUM 100 MG CAPSULE (FP) PO SCH (10:05)
[2016-09-04] MEDS: METOPROLOL SUCCINATE 25 MG TAB.SR.24H (FP) PO SCH (10:05)
== END 2016-09-04 10:35 | disposition home or self-care (01) | DRG 772 ==
LOC: YASAS 14:48 → Y5N 19:45
PROVIDERS: ADMIT Psychiatry & Neurology Psychiatry; ATTEND Psychiatry & Neurology Psychiatry
PROC: HZ42ZZZ Group Counseling for Substance Abuse Treatment, Cognitive-Behavioral (ICD-10-PCS; principal; 2016-08-07)
DX: F11.20 Opioid dependence, uncomplicated (principal); F10.20 Alcohol dependence, uncomplicated; F17.213 Nicotine dependence, cigarettes, with withdrawal; F19.282 Other psychoactive substance dependence with psychoactive substance-induced sleep disorder; I10 Essential (primary) hypertension; I25.10 Atherosclerotic heart disease of native coronary artery without angina pectoris; Z95.5 Presence of coronary angioplasty implant and graft; Z91.013 Allergy to seafood; Z87.898 Personal history of other specified conditions; R26.2 Difficulty in walking, not elsewhere classified; W01.190A Fall on same level from slipping, tripping and stumbling with subsequent striking against furniture, initial encounter; Y93.89 Activity, other specified; Y92.230 Patient room in hospital as the place of occurrence of the external cause; Z59.0 Homelessness
CPT/HCPCS: 36415; 73130-TC-RT; 80053; 81003; 85027; 86593; 93005; 93010

== ENCOUNTER 2017-01-03 11:59 | Inpatient (IN) | payer OTHER ==
[2017-01-03 14:10] VITALS: BMI 24.9
--- NOTE | 2017-01-03 15:37 | HP ---
COWS - Scale Resting Pulse: 1= [place] 81-100 Sweatin=Flushed/Facial Moisture Restless Observation: 3= Extraneous Movement Pupil Size: 2= Moderately Dilated Bone or Joint Aches: 2= Severe Diffuse Aches Runny Nose/ Eye Tearin= Runny Nose/Eyes GI Upset > 30mins: 3= Vomiting/Diarrhea Tremor Observation: 2= Slight Tremor Visible Yawning Observation: 2= >3x During Session Anxiety or Irritability: 2=Irritable/Anxious Goose Flesh Skin: 0=Smooth Skin COWS Score: 21 CIWA Score - CIWA Score Nausea/Vomitin Muscle Tremors: 3 Anxiety: 3 Agitation: 3 Paroxysmal Sweats: 1-Minimal Palms Moist Orientation: 0-Oriented Tacttile Disturbances: 2-Mild Itch/Numbness/Burn Auditory Disturbances: 2-Mild Harshness/Frighten Visual Disturbances: 2-Mild Sensitivity Headache: 2-Mild CIWA-Ar Total Score: 21 Admission ROS [facility] - HPI Chief Complaint: i need help to stop using heroin,alcohol Allergies/Adverse Reactions: Allergies Allergy/AdvReac Type Severity Reaction Status Date / Time Fish Containing Products Allergy Verified 01/03/17 15:20 No Known Drug Allergies Allergy Verified 01/03/17 15:20 History of Present Illness: this 56 years old male with heroin and alcohol dependence,seeking detox,[facility] completed multiple admissions in the past multiple medical problem cad s/p angioplasty and stent,asthma,weight loss, insomnia,depression longest period of sobriety 18 years - Ebola screening Have you traveled outside of the country in the last 21 days: No Have you had contact with anyone from an Ebola affected area: No Have you been sick,other than usual withdrawal symptoms: No Do you have a fever: No - Review of Systems Constitutional: Chills, Loss of Appetite, Malaise, Night Sweats, Changes in sleep, Weakness, Unintentional Wgt. Loss EENT: reports: Tearing, Nose Congestion Respiratory: reports: Other (asthma history) Cardiac: reports: No Symptoms Reported GI: reports: Diarrhea, Nausea, Vomiting, Abdominal cramping : reports: No Symptoms Reported Musculoskeletal: reports: Back Pain, Joint Pain, Muscle Pain, Joint Stiffness Integumentary: reports: Dryness Neuro: reports: Headache, Seizure, Tremors Endocrine: reports: No Symptoms Reported Hematology: reports: No Symptoms Reported Psychiatric: reports: No Sypmtoms Reported, Judgement Intact, Mood/Affect Appropiate, Depressed Patient History - Patient Medical History Hx Anemia: No Hx Asthma: Yes (on albuterol inhaler) Hx Chronic Obstructive Pulmonary Disease (COPD): No Hx Cancer: No Hx Cardiac Disorders: Yes (s/p angioplasty with stent 2012 did not recall facility) Hx Congestive Heart Failure: No Hx Hypertension: No Hx Hypercholesterolemia: Yes (no med) Hx Pacemaker: No HX Cerebrovascular Accident: No Hx Seizures: No Hx Dementia: No Hx Diabetes: No Hx Gastrointestinal Disorders: No Hx Liver Disease: No Hx Genitourinary Disorders: No Hx Sexually Transmitted Disorders: No Hx Renal Disease (ESRD): No Hx Thyroid Disease: No Hx Human Immunodeficiency Virus (HIV): No (NEGATIVE HX last 2015) Hx Hepatitis C: No Hx Depression: Yes Hx Suicide Attempt: No Hx Bipolar Disorder: No Hx Schizophrenia: No Other Medical History: in somnia,no suicidal,no homicidal - Patient Surgical History Past Surgical History: Yes Hx Neurologic Surgery: No Hx Cataract Extraction: No Hx Cardiac Surgery: Yes (STENT X 1 IN 2012) Hx Lung Surgery: No Hx Breast Surgery: No Hx Breast Biopsy: No Hx Abdominal Surgery: No Hx Appendectomy: No Hx Cholecystectomy: No Hx Genitourinary Surgery: No Hx Section: No Hx Orthopedic Surgery: No Anesthesia Reaction: No - PPD History Previous Implant?: Yes Documented Results: Negative w/proof Date: 07/24/16 Results: 0mm PPD to be Administered?: Yes - Smoking Cessation Smoking history: Current every day smoker Have you smoked in the past 12 months: Yes Aproximately how many cigarettes per day: 10 Cigars Per Day: 0 Hx Chewing Tobacco Use: No Initiated information on smoking cessation: Yes 'Breaking Loose' booklet given: 01/03/17 - Substance & Tx. History Hx Alcohol Use: Yes Hx Substance Use: Yes Substance Use Type: Alcohol, Heroin Hx [facility] - Substances Abused Heroin Route: Inhalation Frequency: Daily Amount used: 8-10 BAGS Age of first use: 48 Date of Last Use: 01/02/17 Alcohol Route: Oral Frequency: Daily Amount used: FIFTH OF VODKA Age of first use: 22 Date of Last Use: 01/03/17 Family Disease History - Family Disease History Family Disease History: Heart Disease: Father (alcohol,), Mother ( alcohol) Admission Physical Exam S - Vital Signs Vital Signs: Vital Signs - 24 hr 01/03/17 14:08 Temperature 97 F L Pulse Rate 86 Respiratory 20 Rate Blood Pressure 119/80 - Physical General Appearance: Yes: Moderate Distress, Tremorous, Irritable, Sweating, Anxious HEENTM: Yes: Hearing grossly Normal, Normal ENT Inspection, DARYA, Pharynx Normal Respiratory: Yes: Lungs Clear, Normal Breath Sounds, No Respiratory Distress Neck: Yes: Within Normal Limits, Supple, Trachea in good position Breast: Yes: Within Normal Limits Cardiology: Yes: Within Normal Limits, Regular Rhythm, Regular Rate, S1, S2 Abdominal: Yes: Within Normal Limits, Normal Bowel Sounds, Non Tender, Flat, Soft Genitourinary: Yes: Within Normal Limits Back: Yes: Within Normal Limits, Normal Inspection, Muscle Spasm Musculoskeletal: Yes: full range of Motion, Back pain, Muscle Pain Extremities: Yes: Within Normal Limits, Normal Range of Motion, Tremors Neurological: Yes: hotel and dining room cashier II-XII NML intact, Fully Oriented, Alert, Motor Strength 5/5 Integumentary: Yes: Dry Lymphatic: Yes: Within Normal Limits - Diagnostic (1) Opioid dependence with withdrawal Current Visit: No Status: Acute (2) Alcohol dependence with uncomplicated withdrawal Current Visit: No Status: Acute (3) Nicotine dependence Current Visit: No Status: Acute Qualifiers: Nicotine product type: cigarettes Substance use status: in withdrawal Qualified Code(s): F17.213 - Nicotine dependence, cigarettes, with withdrawal (4) Weight loss Current Visit: No Status: Acute (5) Asthma Current Visit: No Status: Chronic Qualifiers: Asthma severity: mild intermittent Asthma complication type: uncomplicated Qualified Code(s): J45.20 - Mild intermittent asthma, uncomplicated (6) CAD (coronary artery disease) Current Visit: No Status: Chronic Qualifiers: Coronary Disease-Associated Artery/Lesion type: [place] artery [place] vs. transplanted heart: [place] heart Associated angina: without angina Qualified Code(s): I25.10 - Atherosclerotic heart disease of [place] coronary artery without angina pectoris (7) History of pulmonary embolism Current Visit: No Status: Chronic (8) S/P angioplasty with stent Current Visit: Yes Status: Acute (9) Insomnia Current Visit: Yes Status: Acute (10) Depression Current Visit: Yes Status: Acute (11) Hypercholesteremia Current Visit: Yes Status: Acute Cleared for Admission [facility] - Detox or Rehab [facility] Level of Care: Medically Managed Detox Regimen/Protocol: Methadone/Librium [facility] Breath Alcohol Content Breath Alcohol Content: 0 Urine Drug Screen - Results Drug Screen Negative: No Urine Drug Screen Results: OPI-Opiates, BZO-Benzodiazepines, MTD-Methadone
[2017-01-03] MEDS ORDERED: diphenhydrAMINE HCL 50 MG CAPSULE PO PRN (15:59)
[2017-01-03] MEDS ORDERED: IBUPROFEN 400 MG TABLET (FP) PO PRN (15:59)
[2017-01-03] MEDS ORDERED: MENTHOL/PHENOL 1 EACH UD MM PRN (15:59)
[2017-01-03] MEDS ORDERED: P-EPHED 60MG/TRIPROLIDI 2.5MG TABLET PO PRN (15:59)
[2017-01-03] MEDS ORDERED: LOPERAMIDE HCL 2 MG CAPSULE PO PRN (15:59)
[2017-01-03] MEDS ORDERED: guaiFENesin/D-METHORPHAN HB 10 ML UNIT-DOSE CUPS PO PRN (15:59)
[2017-01-03] MEDS ORDERED: hydrOXYzine PAMOATE 25 MG CAPSULE (FP) PO PRN (15:59)
[2017-01-03] MEDS ORDERED: MAGNESIUM HYDROX 2400MG/30ML ORAL SUSPENSION 30 ML CUP PO PRN (15:59)
[2017-01-03] MEDS ORDERED: MAG HYDROX/AL HYDROX/SIMETH 30 ML UNIT-DOSE CUP PO PRN (15:59)
[2017-01-03] MEDS ORDERED: MAGNESIUM CITRATE 300 ML BOTTLE PO PRN (15:59)
[2017-01-03] MEDS ORDERED: chlordiazePOXIDE HCL 25 MG CAPSULE PO PRN (15:59)
[2017-01-03] MEDS ORDERED: chlordiazePOXIDE HCL 25 MG CAPSULE PO ONE (15:59)
[2017-01-03] MEDS ORDERED: ALBUTEROL SO4 6.7 GM HFA INHALER IH PRN (16:03)
[2017-01-03] MEDS ORDERED: METHADONE HCL 10 MG TABLET (FOR DETOX USE ONLY) PO ONE ×2 (17:30→23:00)
[2017-01-03] MEDS: chlordiazePOXIDE HCL 25 MG CAPSULE PO SCH ×2 (18:01→22:34)
[2017-01-03] MEDS: NICOTINE 21 MG/24 HOURS TOPICAL PATCH TD SCH (18:03)
[2017-01-03] MEDS: THIAMINE HCL 100 MG TABLET (FP) PO SCH (22:33)
[2017-01-03 23:39] LABS: URINE APPEARANCE CLEAR; URINE BILIRUBIN 1+ (NEGATIVE); URINE BLOOD NEGATIVE (NEGATIVE); URINE COLOR LT. YELLOW; URINE GLUCOSE (UA) NEGATIVE (NEGATIVE); URINE KETONE 1+ (NEGATIVE); URINE LEUK ESTERASE NEGATIVE (NEGATIVE); URINE NITRITE NEGATIVE (NEGATIVE); URINE PROTEIN NEGATIVE (NEGATIVE)
[2017-01-04] MEDS: chlordiazePOXIDE HCL 25 MG CAPSULE PO SCH ×4 (05:06→22:31)
--- NOTE | 2017-01-04 09:31 | CONSULT ---
[facility] Psychiatric Consult - Data Date of interview: 01/04/17 Admission source: [facility] Identifying data: This is 56 years old male ambulating with cane, with no psychiatric hospitalization histopry, multiple medical problems, intoxiocated with: Alcohol, Cannabis, Opioids and Nicotine Substance Abuse History: Smoking history: Current every day smoker. Have you smoked in the past 12 months: Yes. Aproximately how many cigarettes per day: 10. Cigars Per Day: 0. Hx Chewing Tobacco Use: No. Initiated information on smoking cessation: Yes. 'Breaking Loose' booklet given: 01/03/17. - Substance & Tx. History. Hx Alcohol Use: Yes. Hx Substance Use: Yes. Substance Use Type : Alcohol, Heroin. Hx Substance Use Treatment: Yes ([facility] 11/04 last treatment). - Substances Abused. Heroin. Route: Inhalation. Frequency: Daily. Amount used: 8-10 BAGS. Age of first use: 48. Date of Last Use: 01/02/17. Alcohol. Route: Oral. Frequency: Daily. Amount used: FIFTH OF VODKA. Age of first use: 22. Date of Last Use: 01/03/17 Medical History: Hyprecholesterolemia, HTN, Weight loss history, Asthma, CAD history, history of PE, DVT history, Psychiatric History: Patient reports history of depression and insomnia, reports taking prior to admission: TYrazodone 50mg po qhs Physical/Sexual Abuse/Trauma History: Denies Additional Comment: Trazodone 50mg po qhs Mental Status Exam - Mental Status Exam Alert and Oriented to: Person Cognitive Function: Fair Patient Appearance: Unkempt Mood: Sad Affect: Flat Patient Behavior: Cooperative Speech Pattern: Appropriate Voice Loudness: Mildly Soft/Quiet Thought Process: Circumstantial Thought Disorder: Being Controlled Hallucinations: Denies Suicidal Ideation: Denies Homicidal Ideation: Denies Insight/Judgement: Fair Sleep: Difficulty falling asleep Appetite: Weight loss Muscle strength/Tone: Mild Hypotonicity Gait/Station: Deferred Additional Comments: Trazodone 50mg po qhs Psychiatric Findings - Problem List ([place] 1, 2,3) (1) Alcohol dependence Current Visit: No Status: Active (2) Alcohol dependence with uncomplicated withdrawal Current Visit: No Status: Acute (3) Cannabis dependence Current Visit: No Status: Acute (4) Encounter for monitoring Suboxone maintenance therapy Current Visit: No Status: Acute Comment: SUBOXONE 8-2 MG IN AM SUBOXONE 4-1 MG IN PM (5) Nicotine dependence Current Visit: No Status: Acute Qualifiers: Nicotine product type: cigarettes Substance use status: in withdrawal Qualified Code(s): F17.213 - Nicotine dependence, cigarettes, with withdrawal (6) Opioid dependence Current Visit: No Status: Acute (7) Opioid dependence on agonist therapy Current Visit: No Status: Acute (8) Opioid dependence with withdrawal Current Visit: No Status: Acute (9) Substance-induced sleep disorder Current Visit: No Status: Acute (10) Drug-induced mood disorder Current Visit: Yes Status: Acute - Initial Treatment Plan Initial Treatment Plan: Trazodone 50mg po qhs
[2017-01-04 09:53] LABS: MCH 31.5 pg (25.7-33.7); MCHC 33.9 g/dl (32.0-35.9); MEAN CELL VOLUME 92.9 fl (80-96); MEAN PLT VOLUME 8.8 fl (7.5-11.1); PLATELET COUNT 268 K/MM3 (134-434); RDW 13.6 % (11.9-15.9); WHITE BLOOD COUNT 7.8 K/mm3 (4.0-10.0)
[2017-01-04] MEDS ORDERED: METHADONE HCL 10 MG TABLET (FOR DETOX USE ONLY) PO SCH (10:00)
[2017-01-04] MEDS: PRENATAL VITAMINS W/ FOLIC ACID TABLET (FP) PO SCH (10:09)
[2017-01-04] MEDS: NICOTINE 21 MG/24 HOURS TOPICAL PATCH TD SCH (10:10)
[2017-01-04] MEDS: CLOPIDOGREL BISULFATE 75 MG TABLET (FP) PO SCH (10:10)
[2017-01-04] MEDS: ASPIRIN 81 MG CHEWABLE TABLETS PO SCH (10:10)
--- NOTE | 2017-01-04 10:22 | PN ---
S CIWA - CIWA Score Nausea/Vomitin-No Nausea/No Vomiting Muscle Tremors: 4-Moderate,w/Arms Extend Anxiety: 3 Agitation: 3 Paroxysmal Sweats: 3 Orientation: 0-Oriented Tacttile Disturbances: 0-None Auditory Disturbances: 0-None Visual Disturbances: 0-None Headache: 0-None Present CIWA-Ar Total Score: 13 [facility] COWS - Scale Resting Pulse: 0= [place] 80 or Below Sweatin=Flushed/Facial Moisture Restless Observation: 1= Difficult to Sit Still Pupil Size: 0= Normal to Room Light Bone or Joint Aches: 2= Severe Diffuse Aches Runny Nose/ Eye Tearin= Nasal Congestion GI Upset > 30mins: 0= None Tremor Observation of Outstretched Hands: 2= Slight Tremor Visible Yawning Observation: 1= 1-2x During Session Anxiety or Irritability: 2=Irritable/Anxious Goose Flesh Skin: 0=Smooth Skin COWS Score: 11 S Progress Note (SOAP) Subjective: agitation sweats irritable I need a cane interrupted sleep body aches Objective: 01/04/17 10:30 Vital Signs Temperature 97.7 F 01/04/17 10:22 Pulse Rate 76 01/04/17 10:22 Respiratory Rate 18 01/04/17 10:22 Blood Pressure 112/70 01/04/17 10:22 O2 Sat by Pulse Oximetry (%) Laboratory Tests 01/03/17 01/04/17 20:56 07:00 WBC 7.8 RBC 4.49 Hgb 14.1 Hct 41.7 MCV 92.9 MCH 31.5 MCHC 33.9 RDW 13.6 Plt Count 268 D MPV 8.8 Urine Color Lt. yellow Urine Appearance Clear Urine pH 6.0 Urine Protein Negative Urine Glucose (UA) Negative Urine Ketones 1+ H Urine Blood Negative Urine Nitrite Negative Urine Bilirubin 1+ H Urine Urobilinogen 1.0 Ur Leukocyte Esterase Negative labs pending awake/alert ambulating no acute distress Assessment: 01/04/17 10:37 withdrawal sx Plan: continue detox increase fluids labs pending cane ordered
[2017-01-04 10:52] LABS: ALBUMIN 3.5 g/dl (3.4-5.0); ALK PHOS 97 U/L (45-117); ANION GAP 9 (8-16); BILIRUBIN,TOTAL 0.6 mg/dL (0.2-1.0); CO2 29 mmol/L (21-32); CREATININE 0.9 mg/dL (0.7-1.3); GLUCOSE,RANDOM 79 mg/dL (74-106); SGOT/AST 18 U/L (15-37); SGPT/ALT 24 U/L (12-78); TOT PROT 6.5 g/dl (6.4-8.2)
--- NOTE | 2017-01-04 15:02 | EKG ---
Test Reason : Blood Pressure : / mmHG Vent. Rate : 070 BPM Atrial Rate : 070 BPM P-R Int : 184 ms QRS Dur : 088 ms QT Int : 360 ms P-R-T Axes : 063 038 022 degrees QTc Int : 388 ms NORMAL SINUS RHYTHM SEPTAL INFARCT (CITED ON OR BEFORE 07-JUL-2016) ABNORMAL ECG WHEN COMPARED WITH ECG OF 07-AUG-2016 22:14, NONSPECIFIC T WAVE ABNORMALITY NOW EVIDENT IN INFERIOR LEADS T WAVE AMPLITUDE HAS DECREASED IN LATERAL LEADS Confirmed by DUSTY ZHENG MD ([id number]) on 01/04/2017 3:01:28 PM Referred By: Confirmed By:DUSTY ZHENG MD
[2017-01-04] MEDS: traZODone HCL 50 MG TABLET (FP) PO SCH (22:31)
[2017-01-04] MEDS: THIAMINE HCL 100 MG TABLET (FP) PO SCH (22:31)
[2017-01-05] MEDS: chlordiazePOXIDE HCL 25 MG CAPSULE PO SCH ×2 (05:28→10:54)
[2017-01-05] MEDS: PRENATAL VITAMINS W/ FOLIC ACID TABLET (FP) PO SCH (10:54)
[2017-01-05] MEDS: CLOPIDOGREL BISULFATE 75 MG TABLET (FP) PO SCH (10:54)
[2017-01-05] MEDS: METHADONE HCL 5 MG TABLET (FOR DETOX USE ONLY) PO SCH (10:54)
[2017-01-05] MEDS: ASPIRIN 81 MG CHEWABLE TABLETS PO SCH (10:54)
[2017-01-05] MEDS: NICOTINE 21 MG/24 HOURS TOPICAL PATCH TD SCH (10:56)
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
[2017-01-05] MEDS: chlordiazePOXIDE 5 MG CAPSULE PO SCH ×2 (18:34→22:15)
[2017-01-05] MEDS: THIAMINE HCL 100 MG TABLET (FP) PO SCH (22:15)
[2017-01-05] MEDS: traZODone HCL 50 MG TABLET (FP) PO SCH (22:15)
[2017-01-06] MEDS: chlordiazePOXIDE 5 MG CAPSULE PO SCH ×2 (05:43→10:14)
[2017-01-06] MEDS: CLOPIDOGREL BISULFATE 75 MG TABLET (FP) PO SCH (10:14)
[2017-01-06] MEDS: METHADONE HCL 5 MG TABLET (FOR DETOX USE ONLY) PO SCH (10:14)
[2017-01-06] MEDS: PRENATAL VITAMINS W/ FOLIC ACID TABLET (FP) PO SCH (10:14)
[2017-01-06] MEDS: ASPIRIN 81 MG CHEWABLE TABLETS PO SCH (10:14)
[2017-01-06] MEDS: NICOTINE 21 MG/24 HOURS TOPICAL PATCH TD SCH (10:15)
[2017-01-06] MEDS: ACETAMINOPHEN 325 MG TABLET (FP) PO PRN (10:16)
--- NOTE | 2017-01-06 13:46 | PN ---
S Progress Note (SOAP) Subjective: alert,irritable,anxious,interrupted,pain in the body and back and hand Objective: 01/06/17 13:44 01/06/17 13:44 Vital Signs Temperature 97.9 F 01/06/17 09:56 Pulse Rate 69 01/06/17 09:56 Respiratory Rate 16 01/06/17 09:56 Blood Pressure 99/62 01/06/17 09:56 O2 Sat by Pulse Oximetry (%) Assessment: 01/06/17 13:44 withdrawal symptom Plan: continue detox,psychiatric reevaluation
[2017-01-06] MEDS: chlordiazePOXIDE HCL 10 MG CAPSULE PO SCH ×2 (17:51→22:13)
[2017-01-06] MEDS: THIAMINE HCL 100 MG TABLET (FP) PO SCH (22:13)
[2017-01-06] MEDS: traZODone HCL 50 MG TABLET (FP) PO SCH (22:13)
[2017-01-07] MEDS: chlordiazePOXIDE HCL 10 MG CAPSULE PO SCH ×2 (05:41→10:03)
[2017-01-07] MEDS: PRENATAL VITAMINS W/ FOLIC ACID TABLET (FP) PO SCH (09:17)
[2017-01-07] MEDS: CLOPIDOGREL BISULFATE 75 MG TABLET (FP) PO SCH (09:17)
[2017-01-07] MEDS: ASPIRIN 81 MG CHEWABLE TABLETS PO SCH (09:17)
[2017-01-07] MEDS: NICOTINE 21 MG/24 HOURS TOPICAL PATCH TD SCH (09:17)
[2017-01-07] MEDS ORDERED: METHADONE HCL 10 MG TABLET (FOR DETOX USE ONLY) PO SCH (10:00)
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
[2017-01-07] MEDS: ACETAMINOPHEN 325 MG TABLET (FP) PO PRN (22:11)
[2017-01-07] MEDS: traZODone HCL 50 MG TABLET (FP) PO SCH (22:11)
[2017-01-07] MEDS: THIAMINE HCL 100 MG TABLET (FP) PO SCH (22:12)
[2017-01-08] MEDS ORDERED: METHADONE HCL 5 MG TABLET (FOR DETOX USE ONLY) PO SCH (06:00)
[2017-01-08 06:52] VITALS: BP 101/61; PULSE 66; TEMP 98
--- NOTE | 2017-01-08 08:43 | DS ---
[facility] Detox Discharge Summary Admission Date: 01/03/17 Discharge Date: 01/08/17 - History Present History: Alcohol Dependence, Cannabis Dependence, Opioid Dependence - Physical Exam Results Vital Signs: Vital Signs Temperature 98 F 01/08/17 06:52 Pulse Rate 66 01/08/17 06:52 Respiratory Rate 18 01/08/17 06:52 Blood Pressure 101/61 01/08/17 06:52 O2 Sat by Pulse Oximetry (%) - Treatment Hospital Course: Detox Protocol Followed, Detoxed Safely, Responded well, Discharged Condition Good, Rehab Referral Accepted - Medication Discharge Medications: Ambulatory Orders Albuterol Sulfate Inhaler - [Ventolin Hfa Inhaler -] 2 inh PO Q4H PRN #1 inhaler 07/10/16 Aspirin [ASA -] 81 mg PO DAILY #30 tab.chew 09/04/16 Trazodone HCl [Desyrel -] 50 mg PO HS #30 tablet 09/04/16 Clopidogrel Bisulfate [Plavix -] 75 mg PO DAILY 01/03/17 Trazodone HCl [Desyrel -] 50 mg PO HS #30 tablet 01/04/17 - Diagnosis (1) Depression Current Visit: Yes Status: Chronic Qualifiers: Major depression episode severity: unspecified (2) Drug-induced mood disorder Current Visit: Yes Status: Acute (3) Hypercholesteremia Current Visit: Yes Status: Chronic (4) Insomnia Current Visit: Yes Status: Acute (5) S/P angioplasty with stent Current Visit: No Status: Resolved (6) Wrist drop, right wrist Current Visit: Yes Status: Acute (7) Alcohol dependence with uncomplicated withdrawal Current Visit: Yes Status: Chronic (8) Cannabis dependence Current Visit: Yes Status: Chronic (9) Encounter for monitoring Suboxone maintenance therapy Current Visit: No Status: Acute (10) HTN Current Visit: Yes Status: Chronic (11) Nicotine dependence Current Visit: Yes Status: Chronic Qualifiers: Nicotine product type: cigarettes Substance use status: uncomplicated Qualified Code(s): F17.210 - Nicotine dependence, cigarettes, uncomplicated (12) Opioid dependence with withdrawal Current Visit: Yes Status: Chronic (13) Substance-induced sleep disorder Current Visit: No Status: Acute (14) Use of cane as ambulatory aid Current Visit: No Status: Acute (15) Weight loss Current Visit: No Status: Acute (16) Wrist weakness Current Visit: Yes Status: Acute (17) Asthma Current Visit: Yes Status: Chronic Qualifiers: Asthma severity: mild intermittent Asthma complication type: uncomplicated Qualified Code(s): J45.20 - Mild intermittent asthma, uncomplicated (18) CAD (coronary artery disease) Current Visit: No Status: Chronic Qualifiers: Coronary Disease-Associated Artery/Lesion type: [place] artery [place] vs. transplanted heart: [place] heart Associated angina: without angina Qualified Code(s): I25.10 - Atherosclerotic heart disease of [place] coronary artery without angina pectoris (19) History of pulmonary embolism Current Visit: No Status: Chronic (20) Left leg DVT Current Visit: No Status: Chronic - AMA Did Patient Leave Against Medical Advice: No
[2017-01-08] MEDS: ASPIRIN 81 MG CHEWABLE TABLETS PO SCH (09:26)
[2017-01-08] MEDS: CLOPIDOGREL BISULFATE 75 MG TABLET (FP) PO SCH (09:26)
[2017-01-08] MEDS: NICOTINE 21 MG/24 HOURS TOPICAL PATCH TD SCH (09:26)
[2017-01-08] MEDS: PRENATAL VITAMINS W/ FOLIC ACID TABLET (FP) PO SCH (09:26)
== END 2017-01-08 09:35 | disposition home or self-care (01) | DRG 773 ==
LOC: YASAS 11:59 → Y6N 16:39
PROVIDERS: ADMIT Internal Medicine; ATTEND Internal Medicine Addiction Medicine
PROC: HZ2ZZZZ Detoxification Services for Substance Abuse Treatment (ICD-10-PCS; principal; 2017-01-03)
DX: F11.23 Opioid dependence with withdrawal (principal); F10.230 Alcohol dependence with withdrawal, uncomplicated; F12.20 Cannabis dependence, uncomplicated; F17.210 Nicotine dependence, cigarettes, uncomplicated; F19.24 Other psychoactive substance dependence with psychoactive substance-induced mood disorder; F19.282 Other psychoactive substance dependence with psychoactive substance-induced sleep disorder; F32.9 Major depressive disorder, single episode, unspecified; E78.00 Pure hypercholesterolemia, unspecified; G47.00 Insomnia, unspecified; M21.331 Wrist drop, right wrist; I10 Essential (primary) hypertension; I25.10 Atherosclerotic heart disease of native coronary artery without angina pectoris; R26.2 Difficulty in walking, not elsewhere classified; J45.20 Mild intermittent asthma, uncomplicated; Z91.013 Allergy to seafood; Z86.711 Personal history of pulmonary embolism; Z87.898 Personal history of other specified conditions; Z99.89 Dependence on other enabling machines and devices; Z95.5 Presence of coronary angioplasty implant and graft; Z79.82 Long term (current) use of aspirin
CPT/HCPCS: 36415; 73110-TC-RT; 73130-TC-RT; 80053; 81003; 85027; 86593; 93005; 93010

== ENCOUNTER 2017-01-07 12:04 | Emergency (ER) | payer OTHER ==
[2017-01-07 12:12] VITALS: BP 102/64; PULSE 67; TEMP 98.4; BMI 23.6
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
== END 2017-01-07 13:35 | disposition home or self-care (01) ==
LOC: JERFT 12:04
PROC: 2W3CX1Z Immobilization of Right Lower Arm using Splint (ICD-10-PCS; principal; 2017-01-07)
DX: M25.531 Pain in right wrist (principal); Y04.0XXA Assault by unarmed brawl or fight, initial encounter; Y93.89 Activity, other specified; Y92.89 Other specified places as the place of occurrence of the external cause; I25.10 Atherosclerotic heart disease of native coronary artery without angina pectoris; F17.210 Nicotine dependence, cigarettes, uncomplicated; Z95.5 Presence of coronary angioplasty implant and graft
CPT/HCPCS: 29125; 99281-25

== ENCOUNTER 2017-04-09 10:47 | Inpatient (IN) | payer OTHER ==
[2017-04-09 11:57] VITALS: BMI 22.3
--- NOTE | 2017-04-09 15:38 | HP ---
Admission [facility] Chief Complaint: REHAB TX FOR DRUG AND ALCOHOL DEPENDENCE Allergies/Adverse Reactions: Allergies Allergy/AdvReac Type Severity Reaction Status Date / Time Fish Containing Products Allergy Severe Hives Verified 04/09/17 12:20 No Known Drug Allergies Allergy Verified 04/09/17 12:20 History of Present Illness: 57 Y/O AA/MALE WITH A HX HEROIN AND ALCOHOL DEPENDENCE SEEKING REHAB TX. PT HAS A HX TWO STENTS INSERTION IN 2012. PT HAS PRIMARY CARE AT [facility], [facility]UN[facility]ICINE PROGRAM. PT IS ON SUBOXONE 2 TABS OF 8/2(16/ 4 MG) MG IN AM AND 8/2 MG AT NIGHT. MAT CONFIRMED FROM [employer] [facility] [employer]. LAST RX #30 TABS. PT STATES HE CAME FROM [facility] AND WILL BE GOING BACK THERE AFTER REHAB. Exam Limitations: No Limitations - Ebola screening Have you traveled outside of the country in the last 21 days: No Have you had contact with anyone from an Ebola affected area: No Have you been sick,other than usual withdrawal symptoms: No Do you have a fever: No - Review of Systems Constitutional: Chills, Loss of Appetite, Night Sweats, Unintentional Wgt. Loss EENT: reports: Nose Congestion, Dental Problems (MISSING TEETH) Respiratory: reports: Shortness of Breath (HX ASTHMA), Wheezing Cardiac: reports: No Symptoms Reported GI: reports: Abdominal cramping : reports: No Symptoms Reported Musculoskeletal: reports: Back Pain, Joint Pain, Muscle Pain Integumentary: reports: No Symptoms Reported Neuro: reports: Numbness, Tingling, Tremors, Unsteady Gait (HX FALLS ON INTOXICATION) Endocrine: reports: No Symptoms Reported Hematology: reports: No Symptoms Reported Psychiatric: reports: Orientated x3 Other Systems: Reviewed and Negative Patient History - Patient Medical History Hx Anemia: No Hx Asthma: Yes (MDI) Hx Chronic Obstructive Pulmonary Disease (COPD): No Hx Cancer: No Hx Cardiac Disorders: Yes (HX CAD;TWO STENTS INSERTED. ASPIRIN) Hx Congestive Heart Failure: No Hx Hypertension: No Hx Hypercholesterolemia: Yes (PLAVIX IN THE PAST.) Hx Pacemaker: No HX Cerebrovascular Accident: No Hx Seizures: No Hx Dementia: No Hx Diabetes: No Hx Gastrointestinal Disorders: No Hx Liver Disease: No Hx Genitourinary Disorders: No Hx Sexually Transmitted Disorders: No Hx Renal Disease (ESRD): No Hx Thyroid Disease: No Hx Human Immunodeficiency Virus (HIV): No (NEGATIVE HX last 2015) Hx Hepatitis C: No Hx Depression: No Hx Suicide Attempt: No (DENIES) Hx Bipolar Disorder: No Hx Schizophrenia: No - Patient Surgical History Past Surgical History: Yes Hx Neurologic Surgery: No Hx Cataract Extraction: No Hx Cardiac Surgery: Yes (STENT X 2 IN 2012) Hx Lung Surgery: No Hx Breast Surgery: No Hx Breast Biopsy: No Hx Abdominal Surgery: No Hx Appendectomy: No Hx Cholecystectomy: No Hx Genitourinary Surgery: No Hx Orthopedic Surgery: No Anesthesia Reaction: No - PPD History Previous Implant?: Yes Documented Results: Negative w/proof Implanted On Prior R Admission?: Yes Date: 07/24/16 Results: 0 mm PPD to be Administered?: No - Reproductive History Patient is a Female of Child Bearing Age (11 -55 yrs old): No (MALE) - Smoking Cessation Smoking history: Current every day smoker Have you smoked in the past 12 months: Yes Aproximately how many cigarettes per day: 10 Cigars Per Day: 0 Hx Chewing Tobacco Use: No Initiated information on smoking cessation: Yes 'Breaking Loose' booklet given: 04/09/17 - Substance & Tx. History Hx Alcohol Use: Yes (VODKA) Hx Substance Use: Yes (HEROIN) Substance Use Type: Alcohol, Heroin Hx Substance Use Treatment: Yes (LAST TX AT [facility]) - Substances Abused Heroin Route: Inhalation Frequency: Daily Amount used: 20 bags Age of first use: 47 Date of Last Use: 03/23/17 Alcohol-vodka Route: Oral Frequency: Daily Amount used: 1-2 pts. Age of first use: 22 Date of Last Use: 03/23/17 Family Disease History - Family Disease History Family Disease History: Heart Disease: Father (alcohol,), Mother ( alcohol) Admission Physical Exam [facility] - Vital Signs Vital Signs: Vital Signs - 24 hr 04/09/17 11:55 Temperature 98 F Pulse Rate 80 Respiratory 20 Rate Blood Pressure 128/81 - Physical General Appearance: Yes: No Apparent Distress HEENTM: Yes: EOMI, Normocephalic, DARYA, Pharynx Normal Respiratory: Yes: Chest Non-Tender, Lungs Clear Neck: Yes: No masses,lesions,Nodules, Supple, Trachea in good position Breast: Yes: Breast Exam Deferred Cardiology: Yes: Regular Rhythm, Regular Rate, S1, S2 Abdominal: Yes: Normal Bowel Sounds, Non Tender, Flat Genitourinary: Yes: Other (N/C) Back: Yes: Within Normal Limits Musculoskeletal: Yes: full range of Motion, Gait Steady Extremities: Yes: Normal Range of Motion, Non-Tender Neurological: Yes: pet stylist II-XII NML intact, Fully Oriented, Alert Integumentary: Yes: Dry, Warm Lymphatic: Yes: Within Normal Limits - Diagnostic (1) Encounter for monitoring Suboxone maintenance therapy Current Visit: Yes Status: Chronic Comment: SUBOXONE 8-2 MG IN AM SUBOXONE 4-1 MG IN PM (2) Use of cane as ambulatory aid Current Visit: Yes Status: Chronic Comment: ARTHRITIS OF THE LEGS (3) Weight loss Current Visit: Yes Status: Acute (4) Alcohol dependence with uncomplicated withdrawal Current Visit: Yes Status: Chronic (5) Asthma Current Visit: Yes Status: Chronic Qualifiers: Asthma severity: mild intermittent Asthma complication type: uncomplicated (6) CAD (coronary artery disease) Current Visit: Yes Status: Chronic Qualifiers: Coronary Disease-Associated Artery/Lesion type: [place] artery [place] vs. transplanted heart: [place] heart Associated angina: without angina Qualified Code(s): I25.10 - Atherosclerotic heart disease of [place] coronary artery without angina pectoris (7) HTN Current Visit: Yes Status: Chronic (8) Hypercholesteremia Current Visit: Yes Status: Chronic (9) Nicotine dependence Current Visit: Yes Status: Chronic Qualifiers: Nicotine product type: cigarettes Substance use status: uncomplicated Qualified Code(s): F17.210 - Nicotine dependence, cigarettes, uncomplicated (10) Opioid dependence with withdrawal Current Visit: Yes Status: Chronic Cleared for Admission [facility] - Detox or Rehab Claeared for Rehab Admission: Yes [facility] Breath Alcohol Content Breath Alcohol Content: 0 Urine Drug Screen - Results Drug Screen Negative: Yes Inpatient Rehab Admission - Initial Determination Are CD services needed?: Yes Free of communicable disease: Yes Not in need of hospitalization: Yes - Rehab Admission Criteria Comorbidities: Yes Patient is meeting Inpatient Rehab admission criteria:: Yes
[2017-04-09] MEDS ORDERED: MAG HYDROX/AL HYDROX/SIMETH 30 ML UNIT-DOSE CUP PO PRN (16:02)
[2017-04-09] MEDS ORDERED: NICOTINE POLACRILEX 2 MG GUM BC PRN (16:02)
[2017-04-09] MEDS ORDERED: P-EPHED 60MG/TRIPROLIDI 2.5MG TABLET PO PRN (16:02)
[2017-04-09] MEDS ORDERED: guaiFENesin/D-METHORPHAN HB 10 ML UNIT-DOSE CUPS PO PRN (16:02)
[2017-04-09] MEDS ORDERED: IBUPROFEN 400 MG TABLET (FP) PO PRN (16:02)
[2017-04-09] MEDS ORDERED: MENTHOL/PHENOL 1 EACH UD MM PRN (16:02)
[2017-04-09] MEDS ORDERED: MAGNESIUM CITRATE 300 ML BOTTLE PO PRN (16:02)
[2017-04-09] MEDS ORDERED: LOPERAMIDE HCL 2 MG CAPSULE PO PRN (16:02)
[2017-04-09] MEDS ORDERED: MAGNESIUM HYDROX 2400MG/30ML ORAL SUSPENSION 30 ML CUP PO PRN (16:02)
[2017-04-09] MEDS ORDERED: ALBUTEROL SO4 18 GM HFA INHALER IH PRN (16:05)
[2017-04-09] MEDS: THIAMINE HCL 100 MG TABLET (FP) PO SCH (21:23)
[2017-04-09] MEDS: GABAPENTIN 400 MG CAPSULE (FP) PO SCH (21:23)
[2017-04-09] MEDS: NICOTINE 14 MG/24 HOURS TOPICAL PATCH TD SCH (21:24)
[2017-04-09] MEDS: BUPRENORPHINE/NALOXONE 8 MG/2 MG FILM PACKET SL SCH (21:24)
[2017-04-10 01:49] LABS: URINE APPEARANCE CLEAR; URINE BILIRUBIN NEGATIVE (NEGATIVE); URINE BLOOD NEGATIVE (NEGATIVE); URINE COLOR YELLOW; URINE GLUCOSE (UA) NEGATIVE (NEGATIVE); URINE KETONE NEGATIVE (NEGATIVE); URINE NITRITE NEGATIVE (NEGATIVE); URINE PROTEIN NEGATIVE (NEGATIVE); URINE UROBILINOGEN NEGATIVE mg/dL (0.2-1.0)
[2017-04-10] MEDS: GABAPENTIN 400 MG CAPSULE (FP) PO SCH ×3 (06:10→21:12)
[2017-04-10] MEDS: BUPRENORPHINE/NALOXONE 8 MG/2 MG FILM PACKET SL SCH ×2 (06:10→21:12)
[2017-04-10] MEDS: CLOPIDOGREL BISULFATE 75 MG TABLET (FP) PO SCH (07:50)
[2017-04-10 09:48] LABS: MCH 30.9 pg (25.7-33.7); MCHC 33.1 g/dl (32.0-35.9); MEAN CELL VOLUME 93.5 fl (80-96); MEAN PLT VOLUME 9.7 fl (7.5-11.1); PLATELET COUNT 237 K/MM3 (134-434); RDW 14.2 % (11.9-15.9); WHITE BLOOD COUNT 7.6 K/mm3 (4.0-10.0)
[2017-04-10 10:12] LABS: URINE LEUK ESTERASE Negative (NEGATIVE)
[2017-04-10] MEDS: RANITIDINE HCL 150 MG TABLET (FP) PO SCH (10:19)
[2017-04-10] MEDS: NICOTINE 14 MG/24 HOURS TOPICAL PATCH TD SCH (10:19)
[2017-04-10] MEDS: PRENATAL VITAMINS W/ FOLIC ACID TABLET (FP) PO SCH (10:19)
[2017-04-10] MEDS: ASPIRIN 81 MG CHEWABLE TABLETS PO SCH (10:19)
[2017-04-10 10:39] LABS: ALBUMIN 4.1 g/dl (3.4-5.0); ALK PHOS 118 U/L (45-117); ANION GAP 9 (8-16); BILIRUBIN,TOTAL 0.5 mg/dL (0.2-1.0); CALCIUM 9.3 mg/dL (8.5-10.1); CO2 28 mmol/L (21-32); CREATININE 0.8 mg/dL (0.7-1.3); GLUCOSE,RANDOM 77 mg/dL (74-106); SGOT/AST 23 U/L (15-37); SGPT/ALT 30 U/L (12-78); TOT PROT 7.4 g/dl (6.4-8.2)
[2017-04-10] MEDS: ACETAMINOPHEN 325 MG TABLET (FP) PO PRN ×2 (11:05→20:38)
--- NOTE | 2017-04-10 12:30 | EKG ---
Test Reason : Blood Pressure : / mmHG Vent. Rate : 066 BPM Atrial Rate : 066 BPM P-R Int : 180 ms QRS Dur : 104 ms QT Int : 398 ms P-R-T Axes : 066 043 046 degrees QTc Int : 417 ms NORMAL SINUS RHYTHM CANNOT RULE OUT ANTEROSEPTAL INFARCT (CITED ON OR BEFORE 07-JUL-2016) ABNORMAL ECG WHEN COMPARED WITH ECG OF 03-JAN-2017 16:57, NO SIGNIFICANT CHANGE WAS FOUND REPEAT EKG IF CLINICALLY INDICATED Confirmed by VIDAL ESPARZA MD ([id number]) on 04/10/2017 12:29:57 PM Referred By: Confirmed By:VIDAL ESPARZA MD
[2017-04-10] MEDS ORDERED: traZODone HCL 50 MG TABLET (FP) PO PRN (15:27)
--- NOTE | 2017-04-10 15:30 | HP ---
Psychiatrist Admission - Data Date of interview: 04/10/17 Admission source: [facility] Identifying data: This is the third inpatient rehabilitation admission to for this 57 year old black male without children, he is domiciled and unemployed. Medical History: HTN, surgical hx of cardiac stent placement in 2012. Smokes cigarettes 1 and 1/2 cigarettes a day. On suboxone maintanence. Psychiatric History: Patient denies history of psyhciatric treatment, reports that he is on Trazodone 50 mg po hs for insomnia prescribed by his PCP as PRN and wants to continue medication. Physical/Sexual Abuse/Trauma History: Denies history of sexual, physical and verbal abuse. Vital Signs: Vital Signs - 24 hr 04/09/17 04/10/17 04/10/17 22:00 00:33 03:30 Temperature 98.3 F Pulse Rate 76 Respiratory 20 18 18 Rate Blood Pressure 124/73 04/10/17 06:45 Temperature 95.9 F L Pulse Rate 80 Respiratory 18 Rate Blood Pressure 129/72 Allergies/Adverse Reactions: Allergies Allergy/AdvReac Type Severity Reaction Status Date / Time Fish Containing Products Allergy Severe Hives Verified 04/09/17 12:20 No Known Drug Allergies Allergy Verified 04/09/17 12:20 Date of last physical exam: 04/09/17 Concur with the findings of this exam: Yes - Substance Abuse/Tx History Hx Alcohol Use: Yes (daily 1/2 pint of vodka) Hx Substance Use: Yes Substance Use Type: Heroin (10-20 bags daily ) Hx Substance Use Treatment: Yes (several detox, and rehab.) Mental Status Exam - Mental Status Exam Alert and Oriented to: Time, Place, Person Cognitive Function: Good Patient Appearance: Well Groomed Mood: Hopeful Affect: Appropriate, Mood Congruent Patient Behavior: Appropriate, Cooperative Speech Pattern: Clear, Appropriate Voice Loudness: Normal Thought Process: Intact, Goal Oriented Thought Disorder: Not Present Hallucinations: Denies Suicidal Ideation: Denies Homicidal Ideation: Denies Insight/Judgement: Fair Sleep: Poorly Appetite: Fair Muscle strength/Tone: Normal Gait/Station: Normal Psychiatric Findings - Problem List ([place] 1, 2,3) (1) Opioid dependence Current Visit: Yes Status: Acute (2) Alcohol dependence Current Visit: Yes Status: Acute (3) Nicotine dependence Current Visit: Yes Status: Chronic Qualifiers: Nicotine product type: cigarettes Substance use status: uncomplicated Qualified Code(s): F17.210 - Nicotine dependence, cigarettes, uncomplicated (4) Substance-induced sleep disorder Current Visit: No Status: Acute - Initial Treatment Plan Initial Treatment Plan: will continue Trazodone 50 mg po PRN ,monitor rpogress as needed.
[2017-04-10] MEDS: THIAMINE HCL 100 MG TABLET (FP) PO SCH (21:12)
[2017-04-11] MEDS: GABAPENTIN 400 MG CAPSULE (FP) PO SCH ×3 (06:08→21:11)
[2017-04-11] MEDS: BUPRENORPHINE/NALOXONE 8 MG/2 MG FILM PACKET SL SCH ×2 (06:09→21:11)
[2017-04-11] MEDS: CLOPIDOGREL BISULFATE 75 MG TABLET (FP) PO SCH (07:17)
[2017-04-11] MEDS: NICOTINE 14 MG/24 HOURS TOPICAL PATCH TD SCH (09:12)
[2017-04-11] MEDS: PRENATAL VITAMINS W/ FOLIC ACID TABLET (FP) PO SCH (09:12)
[2017-04-11] MEDS: ASPIRIN 81 MG CHEWABLE TABLETS PO SCH (09:12)
[2017-04-11] MEDS: RANITIDINE HCL 150 MG TABLET (FP) PO SCH (09:12)
[2017-04-11] MEDS: ACETAMINOPHEN 325 MG TABLET (FP) PO PRN ×2 (09:12→14:28)
--- NOTE | 2017-04-11 11:29 | PN ---
[facility] Progress Note Note: Patient reporting weight loss requesting ensure Vital Signs - 8 hr 04/11/17 04/11/17 03:30 06:47 Temperature 98.2 F Pulse Rate 79 Respiratory 18 18 Rate Blood Pressure 110/66 Laboratory Tests 04/09/17 04/10/17 04/10/17 22:30 06:00 06:00 WBC 7.6 RBC 4.56 Hgb 14.1 Hct 42.6 MCV 93.5 MCH 30.9 MCHC 33.1 RDW 14.2 Plt Count 237 MPV 9.7 D Sodium 140 Potassium 4.2 Chloride 103 Carbon Dioxide 28 Anion Gap 9 BUN 18 D Creatinine 0.8 Creat Clearance w eGFR > 60 Random Glucose 77 Calcium 9.3 Total Bilirubin 0.5 AST 23 D ALT 30 D Alkaline Phosphatase 118 H D Total Protein 7.4 Albumin 4.1 Urine Color Yellow Urine Appearance Clear Urine pH 5.0 Ur Specific [place] 1.027 Urine Protein Negative Urine Glucose (UA) Negative Urine Ketones Negative Urine Blood Negative Urine Nitrite Negative Urine Bilirubin Negative Urine Urobilinogen Negative Ur Leukocyte Esterase Negative RPR Titer 04/10/17 06:00 WBC RBC Hgb Hct MCV MCH MCHC RDW Plt Count MPV Sodium Potassium Chloride Carbon Dioxide Anion Gap BUN Creatinine Creat Clearance w eGFR Random Glucose Calcium Total Bilirubin AST ALT Alkaline Phosphatase Total Protein Albumin Urine Color Urine Appearance Urine pH Ur Specific [place] Urine Protein Urine Glucose (UA) Urine Ketones Urine Blood Urine Nitrite Urine Bilirubin Urine Urobilinogen Ur Leukocyte Esterase RPR Titer Nonreactive thin male, NAD. labs reviewed with patient, ensure plus 120ml tid ordered
[2017-04-11] MEDS: THIAMINE HCL 100 MG TABLET (FP) PO SCH (21:11)
[2017-04-12] MEDS: ACETAMINOPHEN 325 MG TABLET (FP) PO PRN ×2 (00:52→06:58)
[2017-04-12] MEDS: GABAPENTIN 400 MG CAPSULE (FP) PO SCH ×3 (06:13→21:08)
[2017-04-12] MEDS: BUPRENORPHINE/NALOXONE 8 MG/2 MG FILM PACKET SL SCH ×2 (06:15→21:08)
[2017-04-12] MEDS: CLOPIDOGREL BISULFATE 75 MG TABLET (FP) PO SCH (07:08)
[2017-04-12] MEDS: PRENATAL VITAMINS W/ FOLIC ACID TABLET (FP) PO SCH (10:04)
[2017-04-12] MEDS: NICOTINE 14 MG/24 HOURS TOPICAL PATCH TD SCH (10:04)
[2017-04-12] MEDS: ASPIRIN 81 MG CHEWABLE TABLETS PO SCH (10:04)
[2017-04-12] MEDS: RANITIDINE HCL 150 MG TABLET (FP) PO SCH (10:04)
[2017-04-12] MEDS: THIAMINE HCL 100 MG TABLET (FP) PO SCH (21:08)
[2017-04-13] MEDS: ACETAMINOPHEN 325 MG TABLET (FP) PO PRN (03:18)
[2017-04-13] MEDS: GABAPENTIN 400 MG CAPSULE (FP) PO SCH ×3 (06:09→21:50)
[2017-04-13] MEDS: BUPRENORPHINE/NALOXONE 8 MG/2 MG FILM PACKET SL SCH ×2 (06:09→21:49)
[2017-04-13] MEDS: CLOPIDOGREL BISULFATE 75 MG TABLET (FP) PO SCH (07:12)
[2017-04-13] MEDS: ASPIRIN 81 MG CHEWABLE TABLETS PO SCH (10:09)
[2017-04-13] MEDS: RANITIDINE HCL 150 MG TABLET (FP) PO SCH (10:10)
[2017-04-13] MEDS: PRENATAL VITAMINS W/ FOLIC ACID TABLET (FP) PO SCH (10:10)
[2017-04-13] MEDS: NICOTINE 14 MG/24 HOURS TOPICAL PATCH TD SCH (10:10)
--- NOTE | 2017-04-13 12:20 | PN ---
[facility] Progress Note Note: dental cavities with gingivitis pen vee k 500 mgs po q 6 hrs for 7 day xylociane viscous 15 ccq 6 hrs prn motrin 400 mgs po q 6 hrs prn for pain obsevation
[2017-04-13] MEDS: PENICILLIN V POTASSIUM 500 MG TABLET PO SCH ×3 (13:05→23:18)
[2017-04-13] MEDS: LIDOCAINE VISCOUS 2% ORAL/TOP 100 ML BOTTLE MM PRN (13:07)
[2017-04-13] MEDS: THIAMINE HCL 100 MG TABLET (FP) PO SCH (21:49)
[2017-04-14] MEDS: GABAPENTIN 400 MG CAPSULE (FP) PO SCH ×3 (06:24→21:30)
[2017-04-14] MEDS: BUPRENORPHINE/NALOXONE 8 MG/2 MG FILM PACKET SL SCH ×2 (06:25→21:30)
[2017-04-14] MEDS: PENICILLIN V POTASSIUM 500 MG TABLET PO SCH ×4 (06:25→23:02)
[2017-04-14] MEDS: CLOPIDOGREL BISULFATE 75 MG TABLET (FP) PO SCH (07:04)
[2017-04-14] MEDS: PRENATAL VITAMINS W/ FOLIC ACID TABLET (FP) PO SCH (10:32)
[2017-04-14] MEDS: ASPIRIN 81 MG CHEWABLE TABLETS PO SCH (10:32)
[2017-04-14] MEDS: NICOTINE 14 MG/24 HOURS TOPICAL PATCH TD SCH (10:33)
[2017-04-14] MEDS: RANITIDINE HCL 150 MG TABLET (FP) PO SCH (10:33)
[2017-04-14] MEDS: LIDOCAINE VISCOUS 2% ORAL/TOP 100 ML BOTTLE MM PRN (10:36)
[2017-04-14] MEDS: THIAMINE HCL 100 MG TABLET (FP) PO SCH (21:30)
[2017-04-15] MEDS: ACETAMINOPHEN 325 MG TABLET (FP) PO PRN (03:00)
[2017-04-15] MEDS: PENICILLIN V POTASSIUM 500 MG TABLET PO SCH ×4 (06:47→23:03)
[2017-04-15] MEDS: GABAPENTIN 400 MG CAPSULE (FP) PO SCH ×3 (06:48→21:41)
[2017-04-15] MEDS: BUPRENORPHINE/NALOXONE 8 MG/2 MG FILM PACKET SL SCH ×2 (06:48→21:41)
[2017-04-15] MEDS: CLOPIDOGREL BISULFATE 75 MG TABLET (FP) PO SCH (07:06)
[2017-04-15] MEDS: LIDOCAINE VISCOUS 2% ORAL/TOP 100 ML BOTTLE MM PRN (09:10)
[2017-04-15] MEDS: RANITIDINE HCL 150 MG TABLET (FP) PO SCH (10:38)
[2017-04-15] MEDS: ASPIRIN 81 MG CHEWABLE TABLETS PO SCH (10:38)
[2017-04-15] MEDS: PRENATAL VITAMINS W/ FOLIC ACID TABLET (FP) PO SCH (10:38)
[2017-04-15] MEDS: NICOTINE 14 MG/24 HOURS TOPICAL PATCH TD SCH (10:38)
[2017-04-15] MEDS: THIAMINE HCL 100 MG TABLET (FP) PO SCH (21:41)
[2017-04-16] MEDS: GABAPENTIN 400 MG CAPSULE (FP) PO SCH ×3 (05:59→21:48)
[2017-04-16] MEDS: PENICILLIN V POTASSIUM 500 MG TABLET PO SCH ×4 (05:59→23:09)
[2017-04-16] MEDS: BUPRENORPHINE/NALOXONE 8 MG/2 MG FILM PACKET SL SCH ×2 (06:00→21:48)
[2017-04-16] MEDS: CLOPIDOGREL BISULFATE 75 MG TABLET (FP) PO SCH (07:02)
[2017-04-16] MEDS: NICOTINE 14 MG/24 HOURS TOPICAL PATCH TD SCH (10:13)
[2017-04-16] MEDS: ASPIRIN 81 MG CHEWABLE TABLETS PO SCH (10:13)
[2017-04-16] MEDS: PRENATAL VITAMINS W/ FOLIC ACID TABLET (FP) PO SCH (10:13)
[2017-04-16] MEDS: RANITIDINE HCL 150 MG TABLET (FP) PO SCH (10:13)
[2017-04-16] MEDS: THIAMINE HCL 100 MG TABLET (FP) PO SCH (21:48)
[2017-04-17] MEDS: GABAPENTIN 400 MG CAPSULE (FP) PO SCH ×3 (06:35→21:38)
[2017-04-17] MEDS: PENICILLIN V POTASSIUM 500 MG TABLET PO SCH ×4 (06:35→23:35)
[2017-04-17] MEDS: BUPRENORPHINE/NALOXONE 8 MG/2 MG FILM PACKET SL SCH ×2 (06:38→21:38)
[2017-04-17] MEDS: CLOPIDOGREL BISULFATE 75 MG TABLET (FP) PO SCH (07:44)
[2017-04-17] MEDS: ASPIRIN 81 MG CHEWABLE TABLETS PO SCH (10:14)
[2017-04-17] MEDS: RANITIDINE HCL 150 MG TABLET (FP) PO SCH (10:14)
[2017-04-17] MEDS: PRENATAL VITAMINS W/ FOLIC ACID TABLET (FP) PO SCH (10:14)
[2017-04-17] MEDS: NICOTINE 14 MG/24 HOURS TOPICAL PATCH TD SCH (10:14)
[2017-04-17] MEDS: THIAMINE HCL 100 MG TABLET (FP) PO SCH (21:38)
[2017-04-17] MEDS: LIDOCAINE VISCOUS 2% ORAL/TOP 100 ML BOTTLE MM PRN (22:53)
[2017-04-18] MEDS: GABAPENTIN 400 MG CAPSULE (FP) PO SCH ×3 (06:05→21:40)
[2017-04-18] MEDS: BUPRENORPHINE/NALOXONE 8 MG/2 MG FILM PACKET SL SCH ×2 (06:05→21:40)
[2017-04-18] MEDS: PENICILLIN V POTASSIUM 500 MG TABLET PO SCH ×4 (06:05→23:07)
[2017-04-18] MEDS: CLOPIDOGREL BISULFATE 75 MG TABLET (FP) PO SCH (07:38)
[2017-04-18] MEDS: ASPIRIN 81 MG CHEWABLE TABLETS PO SCH (10:08)
[2017-04-18] MEDS: PRENATAL VITAMINS W/ FOLIC ACID TABLET (FP) PO SCH (10:08)
[2017-04-18] MEDS: RANITIDINE HCL 150 MG TABLET (FP) PO SCH (10:08)
[2017-04-18] MEDS: NICOTINE 14 MG/24 HOURS TOPICAL PATCH TD SCH (10:09)
[2017-04-18] MEDS: THIAMINE HCL 100 MG TABLET (FP) PO SCH (21:40)
[2017-04-19] MEDS: GABAPENTIN 400 MG CAPSULE (FP) PO SCH ×3 (06:26→21:35)
[2017-04-19] MEDS: BUPRENORPHINE/NALOXONE 8 MG/2 MG FILM PACKET SL SCH ×2 (06:26→21:36)
[2017-04-19] MEDS: PENICILLIN V POTASSIUM 500 MG TABLET PO SCH ×4 (06:26→23:28)
[2017-04-19] MEDS: CLOPIDOGREL BISULFATE 75 MG TABLET (FP) PO SCH (08:01)
[2017-04-19] MEDS: ASPIRIN 81 MG CHEWABLE TABLETS PO SCH (10:30)
[2017-04-19] MEDS: RANITIDINE HCL 150 MG TABLET (FP) PO SCH (10:30)
[2017-04-19] MEDS: NICOTINE 14 MG/24 HOURS TOPICAL PATCH TD SCH (10:30)
[2017-04-19] MEDS: PRENATAL VITAMINS W/ FOLIC ACID TABLET (FP) PO SCH (10:30)
--- NOTE | 2017-04-19 14:21 | PN ---
"[facility] Progress Note Note: Search Terms: Reynaldo Cortez, 1960 Search Date: 04/19/2017 02:19:46 PM The Drug Utilization Report below displays all of the controlled substance prescriptions, if any, that your patient has filled in the last twelve months. The information displayed on this report is compiled from pharmacy submissions to the Department, and accurately reflects the information as submitted by the pharmacies.sub This report was requested by: Loi Pacheco | Reference #: [id number] Others' Prescriptions Patient Name: Reynaldo Cortez Date: 1960 Address: [address] [place] [address] Sex: Male Rx Written Rx Dispensed Drug Quantity Days Supply Prescriber Name 04/09/2017 04/10/2017 lorazepam 1 mg tablet 1 1 Micki Mae MD 04/05/2017 04/05/2017 suboxone 8 mg-2 mg sl film 30 10 Micki Mae MD 03/28/2017 03/30/2017 lorazepam 1 mg tablet 20 10 Swati Hutchinson MD 03/28/2017 03/30/2017 suboxone 8 mg-2 mg sl film 30 10 Swati Hutchinson MD 11/03/2016 11/03/2016 suboxone 8 mg-2 mg sl film 30 10 Micki Mae MD 11/02/2016 11/03/2016 lorazepam 1 mg tablet 2 1 Swati Hutchinson MD 08/07/2016 08/07/2016 suboxone 8 mg-2 mg sl film 60 20 Micki Mae MD 07/21/2016 07/22/2016 suboxone 8 mg-2 mg sl film 30 10 Swati Hutchinson MD 07/21/2016 07/22/2016 lorazepam 1 mg tablet 20 10 Swati Hutchinson MD Patient Name: Reynaldo Cortez Date: 1960 Address: [address] [place] [id number] Sex: Male Rx Written Rx Dispensed Drug Quantity Days Supply Prescriber Name 02/13/2017 02/13/2017 suboxone 4 mg-1 mg sl film 10 5 Sergio Mayo MD Patient Name: Reynaldo Cortez Date: 1960 Address: [address] [place] [address] Sex: Male Rx Written Rx Dispensed Drug Quantity Days Supply Prescriber Name 11/10/2016 11/13/2016 suboxone 8 mg-2 mg sl film 60 30 Micki Mae MD suboxone dose checked in [employer]. conmfirmed and ordered. patient in agreement with plan"
--- NOTE | 2017-04-19 21:04 | PN ---
[facility] Progress Note Note: received nurse call that the patient fell yesterday observed patient alert oriented no acute distress, report slip and fall yesterday 04/18/17 right elbow hit the ground, denies pain, denies alteration in sensory nor motion of the right elbow right elbow superficial skin abrasion, denies pain denies alteration in sensory motion, full range of motion, wash with soap and water pad dry, open to air continue rehab vital signs 124/80, 82, 18 98.1
[2017-04-19] MEDS: THIAMINE HCL 100 MG TABLET (FP) PO SCH (21:35)
[2017-04-20] MEDS: GABAPENTIN 400 MG CAPSULE (FP) PO SCH ×3 (05:44→21:33)
[2017-04-20] MEDS: PENICILLIN V POTASSIUM 500 MG TABLET PO SCH ×2 (05:45→12:15)
[2017-04-20] MEDS: BUPRENORPHINE/NALOXONE 8 MG/2 MG FILM PACKET SL SCH ×2 (06:31→21:33)
[2017-04-20] MEDS: CLOPIDOGREL BISULFATE 75 MG TABLET (FP) PO SCH (07:02)
[2017-04-20] MEDS: PRENATAL VITAMINS W/ FOLIC ACID TABLET (FP) PO SCH (10:10)
[2017-04-20] MEDS: ASPIRIN 81 MG CHEWABLE TABLETS PO SCH (10:10)
[2017-04-20] MEDS: RANITIDINE HCL 150 MG TABLET (FP) PO SCH (10:10)
[2017-04-20] MEDS: NICOTINE 14 MG/24 HOURS TOPICAL PATCH TD SCH (10:11)
--- NOTE | 2017-04-20 15:21 | PN ---
[facility] Progress Note (SOAP) Subjective: SLIPPED AND HIT ELBOW, RIPPING SCAB WHICH LOOKS OLD Objective: 04/20/17 15:20 Vital Signs - 24 hr 04/20/17 04/20/17 03:30 07:06 Temperature 98.3 F Pulse Rate 82 Respiratory 18 18 Rate Blood Pressure 124/74 Laboratory Tests 04/09/17 04/10/17 04/10/17 22:30 06:00 06:00 WBC 7.6 RBC 4.56 Hgb 14.1 Hct 42.6 MCV 93.5 MCH 30.9 MCHC 33.1 RDW 14.2 Plt Count 237 MPV 9.7 D Sodium 140 Potassium 4.2 Chloride 103 Carbon Dioxide 28 Anion Gap 9 BUN 18 D Creatinine 0.8 Creat Clearance w eGFR > 60 Random Glucose 77 Calcium 9.3 Total Bilirubin 0.5 AST 23 D ALT 30 D Alkaline Phosphatase 118 H D Total Protein 7.4 Albumin 4.1 Urine Color Yellow Urine Appearance Clear Urine pH 5.0 Ur Specific [place] 1.027 Urine Protein Negative Urine Glucose (UA) Negative Urine Ketones Negative Urine Blood Negative Urine Nitrite Negative Urine Bilirubin Negative Urine Urobilinogen Negative Ur Leukocyte Esterase Negative RPR Titer 04/10/17 06:00 WBC RBC Hgb Hct MCV MCH MCHC RDW Plt Count MPV Sodium Potassium Chloride Carbon Dioxide Anion Gap BUN Creatinine Creat Clearance w eGFR Random Glucose Calcium Total Bilirubin AST ALT Alkaline Phosphatase Total Protein Albumin Urine Color Urine Appearance Urine pH Ur Specific [place] Urine Protein Urine Glucose (UA) Urine Ketones Urine Blood Urine Nitrite Urine Bilirubin Urine Urobilinogen Ur Leukocyte Esterase RPR Titer Nonreactive 2 CM ABRASION RIGHT ELBOW, NO INFECTION, OLD SCAB RIPPED OFF Assessment: 04/20/17 15:20 ABRASION, SCAB RIPPED OFF BACITRACIN DRESSIN AND BAND AID TO BE APPLIED DAILY.
[2017-04-20] MEDS: BACITRACIN 0.9 GM PACKET TP SCH (16:09)
[2017-04-20] MEDS: THIAMINE HCL 100 MG TABLET (FP) PO SCH (21:33)
[2017-04-21] MEDS: GABAPENTIN 400 MG CAPSULE (FP) PO SCH ×3 (06:22→21:37)
[2017-04-21] MEDS: BUPRENORPHINE/NALOXONE 8 MG/2 MG FILM PACKET SL SCH ×2 (06:22→21:37)
[2017-04-21] MEDS: CLOPIDOGREL BISULFATE 75 MG TABLET (FP) PO SCH (07:23)
[2017-04-21] MEDS: NICOTINE 14 MG/24 HOURS TOPICAL PATCH TD SCH (10:04)
[2017-04-21] MEDS: BACITRACIN 0.9 GM PACKET TP SCH (10:04)
[2017-04-21] MEDS: ASPIRIN 81 MG CHEWABLE TABLETS PO SCH (10:04)
[2017-04-21] MEDS: RANITIDINE HCL 150 MG TABLET (FP) PO SCH (10:04)
[2017-04-21] MEDS: PRENATAL VITAMINS W/ FOLIC ACID TABLET (FP) PO SCH (10:04)
[2017-04-21] MEDS: THIAMINE HCL 100 MG TABLET (FP) PO SCH (21:37)
[2017-04-22] MEDS: GABAPENTIN 400 MG CAPSULE (FP) PO SCH ×3 (05:58→21:37)
[2017-04-22] MEDS: BUPRENORPHINE/NALOXONE 8 MG/2 MG FILM PACKET SL SCH ×2 (06:00→21:37)
[2017-04-22] MEDS: CLOPIDOGREL BISULFATE 75 MG TABLET (FP) PO SCH (07:04)
[2017-04-22] MEDS: BACITRACIN 0.9 GM PACKET TP SCH (10:31)
[2017-04-22] MEDS: ASPIRIN 81 MG CHEWABLE TABLETS PO SCH (10:31)
[2017-04-22] MEDS: PRENATAL VITAMINS W/ FOLIC ACID TABLET (FP) PO SCH (10:31)
[2017-04-22] MEDS: RANITIDINE HCL 150 MG TABLET (FP) PO SCH (10:31)
[2017-04-22] MEDS: NICOTINE 14 MG/24 HOURS TOPICAL PATCH TD SCH (10:32)
[2017-04-22] MEDS: THIAMINE HCL 100 MG TABLET (FP) PO SCH (21:37)
[2017-04-23] MEDS: GABAPENTIN 400 MG CAPSULE (FP) PO SCH ×3 (06:03→21:35)
[2017-04-23] MEDS: BUPRENORPHINE/NALOXONE 8 MG/2 MG FILM PACKET SL SCH ×2 (06:05→21:35)
[2017-04-23] MEDS: CLOPIDOGREL BISULFATE 75 MG TABLET (FP) PO SCH (07:06)
[2017-04-23] MEDS: ASPIRIN 81 MG CHEWABLE TABLETS PO SCH (10:25)
[2017-04-23] MEDS: NICOTINE 14 MG/24 HOURS TOPICAL PATCH TD SCH (10:25)
[2017-04-23] MEDS: BACITRACIN 0.9 GM PACKET TP SCH (10:25)
[2017-04-23] MEDS: RANITIDINE HCL 150 MG TABLET (FP) PO SCH (10:25)
[2017-04-23] MEDS: PRENATAL VITAMINS W/ FOLIC ACID TABLET (FP) PO SCH (10:25)
[2017-04-23] MEDS: THIAMINE HCL 100 MG TABLET (FP) PO SCH (21:35)
[2017-04-24] MEDS: GABAPENTIN 400 MG CAPSULE (FP) PO SCH ×3 (06:29→21:36)
[2017-04-24] MEDS: BUPRENORPHINE/NALOXONE 8 MG/2 MG FILM PACKET SL SCH ×2 (06:29→21:36)
[2017-04-24] MEDS: CLOPIDOGREL BISULFATE 75 MG TABLET (FP) PO SCH (07:07)
[2017-04-24] MEDS: BACITRACIN 0.9 GM PACKET TP SCH (10:37)
[2017-04-24] MEDS: ASPIRIN 81 MG CHEWABLE TABLETS PO SCH (10:37)
[2017-04-24] MEDS: NICOTINE 14 MG/24 HOURS TOPICAL PATCH TD SCH (10:37)
[2017-04-24] MEDS: PRENATAL VITAMINS W/ FOLIC ACID TABLET (FP) PO SCH (10:37)
[2017-04-24] MEDS: RANITIDINE HCL 150 MG TABLET (FP) PO SCH (10:37)
--- NOTE | 2017-04-24 14:45 | PN ---
[facility] Progress Note (SOAP) Subjective: c/o pain in feet and dentaql infection causing pain again and required antibiotics Objective: 04/24/17 14:44 Vital Signs - 24 hr 04/24/17 04/24/17 04/24/17 00:30 03:30 06:39 Temperature 97.8 F Pulse Rate 80 Respiratory 16 16 18 Rate Blood Pressure 109/67 Laboratory Tests 04/09/17 04/10/17 04/10/17 22:30 06:00 06:00 WBC 7.6 RBC 4.56 Hgb 14.1 Hct 42.6 MCV 93.5 MCH 30.9 MCHC 33.1 RDW 14.2 Plt Count 237 MPV 9.7 D Sodium 140 Potassium 4.2 Chloride 103 Carbon Dioxide 28 Anion Gap 9 BUN 18 D Creatinine 0.8 Creat Clearance w eGFR > 60 Random Glucose 77 Calcium 9.3 Total Bilirubin 0.5 AST 23 D ALT 30 D Alkaline Phosphatase 118 H D Total Protein 7.4 Albumin 4.1 Urine Color Yellow Urine Appearance Clear Urine pH 5.0 Ur Specific [place] 1.027 Urine Protein Negative Urine Glucose (UA) Negative Urine Ketones Negative Urine Blood Negative Urine Nitrite Negative Urine Bilirubin Negative Urine Urobilinogen Negative Ur Leukocyte Esterase Negative RPR Titer 04/10/17 06:00 WBC RBC Hgb Hct MCV MCH MCHC RDW Plt Count MPV Sodium Potassium Chloride Carbon Dioxide Anion Gap BUN Creatinine Creat Clearance w eGFR Random Glucose Calcium Total Bilirubin AST ALT Alkaline Phosphatase Total Protein Albumin Urine Color Urine Appearance Urine pH Ur Specific [place] Urine Protein Urine Glucose (UA) Urine Ketones Urine Blood Urine Nitrite Urine Bilirubin Urine Urobilinogen Ur Leukocyte Esterase RPR Titer Nonreactive dental caries - poor hygiene, athletes foot Assessment: 04/24/17 14:44 athletes, denta caries start antibiotics, flexeril for pain, tinactin
[2017-04-24] MEDS: CYCLOBENZAPRINE HCL 10 MG TABLET (FP) PO SCH ×2 (15:01→21:36)
[2017-04-24] MEDS: AMOX TR/POT CLAV 500MG/125MG TABLETS (FP) PO SCH ×2 (15:38→17:28)
[2017-04-24] MEDS: MAG HYDROX/ALH/SMC/DPHA/LIDO 240 ML MOUTHWASH MM SCH ×2 (17:27→23:48)
[2017-04-24] MEDS: THIAMINE HCL 100 MG TABLET (FP) PO SCH (21:36)
[2017-04-24] MEDS: TOLNAFTATE 1% CREAM 15 GM TUBE TP SCH (21:37)
[2017-04-24] MEDS: LIDOCAINE VISCOUS 2% ORAL/TOP 100 ML BOTTLE MM PRN (21:43)
[2017-04-24] MEDS ORDERED: AMITRIPTYLINE HCL 25 MG TABLET (FP) PO SCH (22:00)
[2017-04-25] MEDS: CYCLOBENZAPRINE HCL 10 MG TABLET (FP) PO SCH (06:31)
[2017-04-25] MEDS: GABAPENTIN 400 MG CAPSULE (FP) PO SCH ×3 (06:31→21:56)
[2017-04-25] MEDS: BUPRENORPHINE/NALOXONE 8 MG/2 MG FILM PACKET SL SCH ×2 (06:31→18:09)
[2017-04-25] MEDS: MAG HYDROX/ALH/SMC/DPHA/LIDO 240 ML MOUTHWASH MM SCH ×4 (06:32→23:56)
[2017-04-25] MEDS: AMOX TR/POT CLAV 500MG/125MG TABLETS (FP) PO SCH ×3 (07:16→18:09)
[2017-04-25] MEDS: CLOPIDOGREL BISULFATE 75 MG TABLET (FP) PO SCH (07:16)
[2017-04-25] MEDS: PRENATAL VITAMINS W/ FOLIC ACID TABLET (FP) PO SCH (10:30)
[2017-04-25] MEDS: BACITRACIN 0.9 GM PACKET TP SCH (10:30)
[2017-04-25] MEDS: TOLNAFTATE 1% CREAM 15 GM TUBE TP SCH ×2 (10:30→21:56)
[2017-04-25] MEDS: ASPIRIN 81 MG CHEWABLE TABLETS PO SCH (10:30)
[2017-04-25] MEDS: RANITIDINE HCL 150 MG TABLET (FP) PO SCH (10:30)
[2017-04-25] MEDS: NICOTINE 14 MG/24 HOURS TOPICAL PATCH TD SCH (10:31)
[2017-04-25] MEDS ORDERED: CYCLOBENZAPRINE HCL 10 MG TABLET (FP) PO PRN (12:34)
--- NOTE | 2017-04-25 12:36 | PN ---
[facility] Progress Note (SOAP) Subjective: C/O OVERESEDATION FROM PAIN MEDICATIONS Objective: 04/25/17 12:35 Vital Signs - 8 hr 04/25/17 07:03 Temperature 98.3 F Pulse Rate 75 Respiratory 18 Rate Blood Pressure 117/64 Laboratory Tests 04/09/17 04/10/17 04/10/17 22:30 06:00 06:00 WBC 7.6 RBC 4.56 Hgb 14.1 Hct 42.6 MCV 93.5 MCH 30.9 MCHC 33.1 RDW 14.2 Plt Count 237 MPV 9.7 D Sodium 140 Potassium 4.2 Chloride 103 Carbon Dioxide 28 Anion Gap 9 BUN 18 D Creatinine 0.8 Creat Clearance w eGFR > 60 Random Glucose 77 Calcium 9.3 Total Bilirubin 0.5 AST 23 D ALT 30 D Alkaline Phosphatase 118 H D Total Protein 7.4 Albumin 4.1 Urine Color Yellow Urine Appearance Clear Urine pH 5.0 Ur Specific [place] 1.027 Urine Protein Negative Urine Glucose (UA) Negative Urine Ketones Negative Urine Blood Negative Urine Nitrite Negative Urine Bilirubin Negative Urine Urobilinogen Negative Ur Leukocyte Esterase Negative RPR Titer 04/10/17 06:00 WBC RBC Hgb Hct MCV MCH MCHC RDW Plt Count MPV Sodium Potassium Chloride Carbon Dioxide Anion Gap BUN Creatinine Creat Clearance w eGFR Random Glucose Calcium Total Bilirubin AST ALT Alkaline Phosphatase Total Protein Albumin Urine Color Urine Appearance Urine pH Ur Specific [place] Urine Protein Urine Glucose (UA) Urine Ketones Urine Blood Urine Nitrite Urine Bilirubin Urine Urobilinogen Ur Leukocyte Esterase RPR Titer Nonreactive Assessment: 04/25/17 12:35 WILL D/C ELAVIL AT NIGHT AND MAKE FLEXERIL 10MG TID PRN FOR PAIN INSTEAD OF SCHEDULED TO DECREASE SEDATION. EVENING SUBOXONE DOSE IS TO BE GIBVEN AT 6pm NOT Qhs IT MAY INTERFERE WITH SLEEP.
[2017-04-25] MEDS: THIAMINE HCL 100 MG TABLET (FP) PO SCH (21:56)
[2017-04-26] MEDS: BUPRENORPHINE/NALOXONE 8 MG/2 MG FILM PACKET SL SCH ×2 (06:27→17:46)
[2017-04-26] MEDS: GABAPENTIN 400 MG CAPSULE (FP) PO SCH ×3 (06:27→22:01)
[2017-04-26] MEDS: MAG HYDROX/ALH/SMC/DPHA/LIDO 240 ML MOUTHWASH MM SCH ×3 (06:27→17:48)
[2017-04-26] MEDS: CLOPIDOGREL BISULFATE 75 MG TABLET (FP) PO SCH (07:23)
[2017-04-26] MEDS: AMOX TR/POT CLAV 500MG/125MG TABLETS (FP) PO SCH ×3 (07:23→17:46)
[2017-04-26] MEDS: PRENATAL VITAMINS W/ FOLIC ACID TABLET (FP) PO SCH (10:29)
[2017-04-26] MEDS: BACITRACIN 0.9 GM PACKET TP SCH (10:29)
[2017-04-26] MEDS: ASPIRIN 81 MG CHEWABLE TABLETS PO SCH (10:29)
[2017-04-26] MEDS: NICOTINE 14 MG/24 HOURS TOPICAL PATCH TD SCH (10:30)
[2017-04-26] MEDS: RANITIDINE HCL 150 MG TABLET (FP) PO SCH (10:30)
[2017-04-26] MEDS: TOLNAFTATE 1% CREAM 15 GM TUBE TP SCH ×2 (10:30→22:02)
[2017-04-26] MEDS: THIAMINE HCL 100 MG TABLET (FP) PO SCH (22:01)
[2017-04-27] MEDS: MAG HYDROX/ALH/SMC/DPHA/LIDO 240 ML MOUTHWASH MM SCH ×4 (00:07→18:07)
[2017-04-27] MEDS: LIDOCAINE VISCOUS 2% ORAL/TOP 100 ML BOTTLE MM PRN (00:09)
[2017-04-27] MEDS: GABAPENTIN 400 MG CAPSULE (FP) PO SCH ×3 (06:26→21:31)
[2017-04-27] MEDS: BUPRENORPHINE/NALOXONE 8 MG/2 MG FILM PACKET SL SCH ×2 (06:27→18:06)
[2017-04-27] MEDS: CLOPIDOGREL BISULFATE 75 MG TABLET (FP) PO SCH (07:01)
[2017-04-27] MEDS: AMOX TR/POT CLAV 500MG/125MG TABLETS (FP) PO SCH ×3 (07:01→18:06)
[2017-04-27] MEDS: ASPIRIN 81 MG CHEWABLE TABLETS PO SCH (10:09)
[2017-04-27] MEDS: RANITIDINE HCL 150 MG TABLET (FP) PO SCH (10:09)
[2017-04-27] MEDS: BACITRACIN 0.9 GM PACKET TP SCH (10:09)
[2017-04-27] MEDS: NICOTINE 14 MG/24 HOURS TOPICAL PATCH TD SCH (10:09)
[2017-04-27] MEDS: PRENATAL VITAMINS W/ FOLIC ACID TABLET (FP) PO SCH (10:09)
[2017-04-27] MEDS: TOLNAFTATE 1% CREAM 15 GM TUBE TP SCH ×2 (10:10→21:31)
[2017-04-27] MEDS: THIAMINE HCL 100 MG TABLET (FP) PO SCH (21:31)
[2017-04-28] MEDS: MAG HYDROX/ALH/SMC/DPHA/LIDO 240 ML MOUTHWASH MM SCH ×5 (00:46→23:09)
[2017-04-28] MEDS: GABAPENTIN 400 MG CAPSULE (FP) PO SCH ×3 (06:49→21:42)
[2017-04-28] MEDS: BUPRENORPHINE/NALOXONE 8 MG/2 MG FILM PACKET SL SCH ×2 (06:50→18:03)
[2017-04-28] MEDS: AMOX TR/POT CLAV 500MG/125MG TABLETS (FP) PO SCH ×3 (07:03→18:03)
[2017-04-28] MEDS: CLOPIDOGREL BISULFATE 75 MG TABLET (FP) PO SCH (07:03)
[2017-04-28] MEDS: BACITRACIN 0.9 GM PACKET TP SCH (10:20)
[2017-04-28] MEDS: ASPIRIN 81 MG CHEWABLE TABLETS PO SCH (10:21)
[2017-04-28] MEDS: NICOTINE 14 MG/24 HOURS TOPICAL PATCH TD SCH (10:21)
[2017-04-28] MEDS: RANITIDINE HCL 150 MG TABLET (FP) PO SCH (10:21)
[2017-04-28] MEDS: TOLNAFTATE 1% CREAM 15 GM TUBE TP SCH ×2 (10:21→21:44)
[2017-04-28] MEDS: PRENATAL VITAMINS W/ FOLIC ACID TABLET (FP) PO SCH (10:21)
[2017-04-28] MEDS: THIAMINE HCL 100 MG TABLET (FP) PO SCH (21:42)
[2017-04-29] MEDS: ACETAMINOPHEN 325 MG TABLET (FP) PO PRN ×2 (01:21→11:08)
[2017-04-29] MEDS: BUPRENORPHINE/NALOXONE 8 MG/2 MG FILM PACKET SL SCH ×2 (06:38→18:12)
[2017-04-29] MEDS: GABAPENTIN 400 MG CAPSULE (FP) PO SCH ×3 (06:39→21:29)
[2017-04-29] MEDS: MAG HYDROX/ALH/SMC/DPHA/LIDO 240 ML MOUTHWASH MM SCH ×3 (06:39→18:12)
[2017-04-29] MEDS: AMOX TR/POT CLAV 500MG/125MG TABLETS (FP) PO SCH ×3 (07:19→18:12)
[2017-04-29] MEDS: CLOPIDOGREL BISULFATE 75 MG TABLET (FP) PO SCH (07:19)
[2017-04-29] MEDS: PRENATAL VITAMINS W/ FOLIC ACID TABLET (FP) PO SCH (10:33)
[2017-04-29] MEDS: ASPIRIN 81 MG CHEWABLE TABLETS PO SCH (10:33)
[2017-04-29] MEDS: NICOTINE 14 MG/24 HOURS TOPICAL PATCH TD SCH (10:34)
[2017-04-29] MEDS: TOLNAFTATE 1% CREAM 15 GM TUBE TP SCH ×2 (10:34→21:30)
[2017-04-29] MEDS: RANITIDINE HCL 150 MG TABLET (FP) PO SCH (10:34)
[2017-04-29] MEDS: BACITRACIN 0.9 GM PACKET TP SCH (10:34)
[2017-04-29] MEDS: LIDOCAINE VISCOUS 2% ORAL/TOP 100 ML BOTTLE MM PRN (11:10)
[2017-04-29] MEDS: THIAMINE HCL 100 MG TABLET (FP) PO SCH (21:30)
[2017-04-30] MEDS: MAG HYDROX/ALH/SMC/DPHA/LIDO 240 ML MOUTHWASH MM SCH ×2 (00:22→07:01)
[2017-04-30 06:50] VITALS: BP 122/85; PULSE 86; TEMP 98.4
[2017-04-30] MEDS: GABAPENTIN 400 MG CAPSULE (FP) PO SCH (06:51)
[2017-04-30] MEDS: BUPRENORPHINE/NALOXONE 8 MG/2 MG FILM PACKET SL SCH (06:52)
[2017-04-30] MEDS: CLOPIDOGREL BISULFATE 75 MG TABLET (FP) PO SCH (07:01)
[2017-04-30] MEDS: AMOX TR/POT CLAV 500MG/125MG TABLETS (FP) PO SCH (07:01)
[2017-04-30] MEDS: PRENATAL VITAMINS W/ FOLIC ACID TABLET (FP) PO SCH (10:28)
[2017-04-30] MEDS: BACITRACIN 0.9 GM PACKET TP SCH (10:28)
[2017-04-30] MEDS: ASPIRIN 81 MG CHEWABLE TABLETS PO SCH (10:28)
[2017-04-30] MEDS: RANITIDINE HCL 150 MG TABLET (FP) PO SCH (10:28)
[2017-04-30] MEDS: TOLNAFTATE 1% CREAM 15 GM TUBE TP SCH (10:28)
[2017-04-30] MEDS: NICOTINE 14 MG/24 HOURS TOPICAL PATCH TD SCH (10:29)
--- NOTE | 2017-04-30 10:42 | PN ---
Psychiatric Progress Note Vital Signs: Vital Signs Period Temp Pulse Resp BP Sys/Dean Pulse Ox Last 24 Hr 98.4 F 86 16-18 122/85 Date of Session: 04/30/17 Chief Complaint:: discharge visit HPI: Patient has addressed alcohol, opioid, nicotine dependence comorbid substance induced sleep disorder. ROS: HTN, surgical hx of cardiac stent placement in 2012. On suboxone maintanence. Current Medications: Active Medications Generic Name Dose Route Start Last Admin Trade Name Freq PRN Reason Stop Dose Admin Acetaminophen 650 mg 04/09/17 16:02 04/29/17 11:08 Tylenol - PO 650 mg Q4H PRN Administration PAIN Al Hydroxide/Mg Hydroxide 30 ml 04/09/17 16:02 Mylanta Oral Suspension - PO Q6H PRN DYSPEPSIA Albuterol Sulfate 2 puff 04/09/17 16:05 Ventolin Hfa Inhaler - IH Q4H PRN ASTHMA Amoxicillin/Clavulanate Potassium 1 tab 04/24/17 15:00 04/30/17 07:01 Augmentin - 500mg Tablet PO 1 tab TIDCM JANEE Administration Aspirin 81 mg 04/10/17 10:00 04/30/17 10:28 Asa - PO 81 mg DAILY JANEE Administration Bacitracin 0.9 gm 04/20/17 15:45 04/30/17 10:28 Bacitracin - TP 0.9 gm DAILY JANEE Administration Buprenorphine/Naloxone 1 each 04/30/17 14:00 Suboxone 8mg/2mg Sl Film - SL 05/07/17 13:59 TID JANEE Clopidogrel Bisulfate 75 mg 04/10/17 08:00 04/30/17 07:01 Plavix - PO 75 mg DAILY@0800 JANEE Administration Cyclobenzaprine HCl 10 mg 04/25/17 12:34 Flexeril - PO TID PRN BACK PAIN Eucalyptus/Menthol/Phenol/Sorbitol 1 each 04/09/17 16:02 Cepastat Lozenge - MM Q4H PRN SORE THROAT Gabapentin 800 mg 04/09/17 22:00 04/30/17 06:51 Neurontin - PO 800 mg TID JANEE Administration Guaifenesin 10 ml 04/09/17 16:02 Robitussin Dm - PO Q6H PRN COUGH Lidocaine HCl 15 ml 04/13/17 12:16 04/29/17 11:10 Xylocaine 2% Viscous MM 15 ml Q6H PRN Administration ORAL PAIN/MOUTH SORES Lidocaine/Aluminum/Magnesium/Simeth 5 ml 04/24/17 18:00 04/30/17 07:01 Magic Mouthwash *Sjr Formula* - MM Not Given Q6HPO JANEE Loperamide HCl 4 mg 04/09/17 16:02 Imodium - PO Q6H PRN DIARRHEA Magnesium Citrate 300 ml 04/09/17 16:02 Citroma - PO Q48H PRN CONSTIPATION Magnesium Hydroxide 30 ml 04/09/17 16:02 Milk Of Magnesia - PO DAILY PRN CONSTIPATION Nicotine 14 mg 04/09/17 18:30 04/30/17 10:29 Nicoderm Patch - TD Not Given DAILY JANEE Nicotine Polacrilex 2 mg 04/09/17 16:02 Nicorette Gum - BC Q2H PRN NICOTINE REPLACEMENT RX Multivit/Folic Acid/Iron 1 tab 04/10/17 10:00 04/30/17 10:28 Vitamins (Sjr) - PO 1 tab DAILY JANEE Administration Pseudoephedrine/Triprolidine 1 combo 04/09/17 16:02 Actifed - PO TID PRN NASAL CONGESTION Ranitidine HCl 150 mg 04/10/17 10:00 04/30/17 10:28 Zantac - PO 150 mg DAILY JANEE Administration Thiamine HCl 100 mg 04/09/17 22:00 04/29/17 21:30 Vitamin B1 - PO 100 mg HS JANEE Administration Tolnaftate 1 applic 04/24/17 22:00 04/30/17 10:28 Tinactin 1% Cream - TP Not Given BID JANEE Trazodone HCl 50 mg 04/10/17 15:27 Desyrel - PO HS PRN INSOMNIA Current Side Effect: No Lab tests ordered: No Lab tests reviewed: Yes Provider note:: Patient has completed today his treatment and met his identified goals, will continue to address his issues at [facility] opd program. Patient gained insights into his addiction and understands the negative outcome of his dependence, he verbailized resolution to stay sober and adherent to his aftercare plans. Patient was provided with scripts for Trazodone(PRN), but patient he will see his psychiatrist who prescribes a klonopin for insomnia. Patient is stable for discharge today. Total face to face time:: 20 Mental Status Exam - Mental Status Exam Alert and Oriented to: Time, Place, Person Cognitive Function: Grossly Intact Patient Appearance: Well Groomed Mood: Hopeful Affect: Appropriate, Mood Congruent Patient Behavior: Appropriate, Cooperative Speech Pattern: Clear, Appropriate Voice Loudness: Normal Thought Process: Intact, Goal Oriented Thought Disorder: Not Present Hallucinations: Denies Suicidal Ideation: Denies Homicidal Ideation: Denies Insight/Judgement: Fair Sleep: Fair Appetite: Fair Muscle strength/Tone: Normal Gait/Station: Normal Psychiatric Treatment Plan - Problem List (1) Opioid dependence Current Visit: Yes (2) Alcohol dependence Current Visit: Yes (3) Nicotine dependence Current Visit: Yes Qualifiers: Nicotine product type: cigarettes Substance use status: uncomplicated Qualified Code(s): F17.210 - Nicotine dependence, cigarettes, uncomplicated (4) Substance-induced sleep disorder Current Visit: No
--- NOTE | 2017-04-30 11:01 | PN ---
"[facility] Progress Note Note: Reynaldo Cortez, 1960 Search Date: 04/30/2017 10:59:41 AM The Drug Utilization Report below displays all of the controlled substance prescriptions, if any, that your patient has filled in the last twelve months. The information displayed on this report is compiled from pharmacy submissions to the Department, and accurately reflects the information as submitted by the pharmacies. This report was requested by: Loi Pacheco | Reference #: [id number] Others' Prescriptions Patient Name: Reynaldo Cortez Date: 1960 Address: [address] [address] Sex: Male Rx Written Rx Dispensed Drug Quantity Days Supply Prescriber Name 04/09/2017 04/10/2017 lorazepam 1 mg tablet 1 1 Micki Mae MD 04/05/2017 04/05/2017 suboxone 8 mg-2 mg sl film 30 10 Micki Mae MD 03/28/2017 03/30/2017 lorazepam 1 mg tablet 20 10 Swati Hutchinson MD 03/28/2017 03/30/2017 suboxone 8 mg-2 mg sl film 30 10 Swati Hutchinson MD 11/03/2016 11/03/2016 suboxone 8 mg-2 mg sl film 30 10 Micki Mae MD 11/02/2016 11/03/2016 lorazepam 1 mg tablet 2 1 Swati Hutchinson MD 08/07/2016 08/07/2016 suboxone 8 mg-2 mg sl film 60 20 Micki Mae MD 07/21/2016 07/22/2016 suboxone 8 mg-2 mg sl film 30 10 Swati Hutchinson MD 07/21/2016 07/22/2016 lorazepam 1 mg tablet 20 10 Swati Hutchinson MD Patient Name: Reynaldo Cortez Date: 1960 Address: [address] [place] [id number] Sex: Male Rx Written Rx Dispensed Drug Quantity Days Supply Prescriber Name 02/13/2017 02/13/2017 suboxone 4 mg-1 mg sl film 10 5 Sergio Mayo MD Patient Name: Reynaldo Cortez Date: 1960 Address: [address] [place] [id number] Sex: Male Rx Written Rx Dispensed Drug Quantity Days Supply Prescriber Name 11/10/2016 11/13/2016 suboxone 8 mg-2 mg sl film 60 30 Micki Mae Unable to electronically submit suboxone prescription, initially because pharmacy is closed but will only print at this point. Patint will need to wait until I am at the hospital to recieve prescription for discharge."
[2017-04-30] MEDS ORDERED: BUPRENORPHINE/NALOXONE 8 MG/2 MG FILM PACKET SL SCH (14:00)
== END 2017-04-30 10:55 | disposition home or self-care (01) | DRG 772 ==
LOC: YASAS 10:47 → Y5N 12:41
PROVIDERS: ADMIT Psychiatry & Neurology Psychiatry; ATTEND Psychiatry & Neurology Psychiatry
PROC: HZ42ZZZ Group Counseling for Substance Abuse Treatment, Cognitive-Behavioral (ICD-10-PCS; principal; 2017-04-09)
DX: F11.20 Opioid dependence, uncomplicated (principal); F10.20 Alcohol dependence, uncomplicated; F17.210 Nicotine dependence, cigarettes, uncomplicated; F19.282 Other psychoactive substance dependence with psychoactive substance-induced sleep disorder
CPT/HCPCS: 36415; 80053; 81003; 85027; 86593; 93005; 93010

== ENCOUNTER 2017-11-22 13:05 | Inpatient (IN) | payer OTHER ==
--- NOTE | 2017-11-22 13:25 | HP ---
[facility] Re[facility] Assess/Revision - Admission History Admitted to Rehab from: [facility] Date of Admission to Rehab: 11/22/17 - Findings Detox History & Physical reviewed: Yes Concur with findings: Yes Comments/Additional Findings: transferred from detox to rehab admission as per protocol Inpatient Rehab Admission - Rehab Admission Criteria Previous failed treatment: Yes Poor recovery environment: Yes Comorbidities: Yes Lacks judgement: No Patient is meeting Inpatient Rehab admission criteria:: Yes
[2017-11-22] MEDS ORDERED: ACETAMINOPHEN 325 MG TABLET (FP) PO PRN (13:26)
[2017-11-22] MEDS ORDERED: MAGNESIUM CITRATE 300 ML BOTTLE PO PRN (13:26)
[2017-11-22] MEDS ORDERED: MAGNESIUM HYDROX 2400MG/30ML ORAL SUSPENSION 30 ML CUP PO PRN (13:26)
[2017-11-22] MEDS ORDERED: LOPERAMIDE HCL 2 MG CAPSULE PO PRN (13:26)
[2017-11-22] MEDS ORDERED: MENTHOL/PHENOL 1 EACH UD MM PRN (13:26)
[2017-11-22] MEDS ORDERED: MAG HYDROX/AL HYDROX/SIMETH 30 ML UNIT-DOSE CUP PO PRN (13:26)
[2017-11-22] MEDS ORDERED: IBUPROFEN 400 MG TABLET (FP) PO PRN (13:26)
[2017-11-22] MEDS ORDERED: P-EPHED 60MG/TRIPROLIDI 2.5MG TABLET PO PRN (13:26)
[2017-11-22] MEDS ORDERED: guaiFENesin/D-METHORPHAN HB 10 ML UNIT-DOSE CUPS PO PRN (13:26)
[2017-11-22] MEDS: GABAPENTIN 400 MG CAPSULE (FP) PO SCH ×2 (15:53→21:31)
[2017-11-22] MEDS: ALBUTEROL SO4 8 GM HFA INHALER IH PRN (15:54)
--- NOTE | 2017-11-22 16:08 | PN ---
[facility] Progress Note Note: patient c/o of back pain Vital Signs Temperature 98 F 11/22/17 15:00 Pulse Rate 92 H 11/22/17 15:00 Respiratory Rate 20 11/22/17 15:00 Blood Pressure 122/74 11/22/17 15:00 O2 Sat by Pulse Oximetry (%) #: [id number] Others' Prescriptions Patient Name: Reynaldo Cortez Date: 1960 Address: [address] [place] [address] Sex: Male Rx Written Rx Dispensed Drug Quantity Days Supply Prescriber Name 04/30/2017 04/30/2017 suboxone 8 mg-2 mg sl film 21 7 Loi Pacheco Patient Name: Reynaldo Cortez Date: 1960 Address: [address] [place] [address] Sex: Male Rx Written Rx Dispensed Drug Quantity Days Supply Prescriber Name 04/09/2017 04/10/2017 lorazepam 1 mg tablet 1 1 Micki Mae MD 04/05/2017 04/05/2017 suboxone 8 mg-2 mg sl film 30 10 Micki Mae MD 03/28/2017 03/30/2017 lorazepam 1 mg tablet 20 10 Swati Hutchinson MD 03/28/2017 03/30/2017 suboxone 8 mg-2 mg sl film 30 10 Swati Hutchinson MD Patient Name: Reynaldo Cortez Date: 1960 Address: [address] [place] [address] Sex: Male Rx Written Rx Dispensed Drug Quantity Days Supply Prescriber Name 02/13/2017 02/13/2017 suboxone 4 mg-1 mg sl film 10 5 Sergio Mayo MD flexeril 5 mg TID lidocaine patch cane for ambulation continue to monitor
[2017-11-22] MEDS: LIDOCAINE 5% TOPICAL PATCH TP SCH (17:10)
[2017-11-22] MEDS: THIAMINE HCL 100 MG TABLET (FP) PO SCH (21:31)
[2017-11-22] MEDS: CYCLOBENZAPRINE HCL 5 MG TABLET PO SCH (21:31)
[2017-11-22] MEDS: LIDOCAINE PATCH REMOVAL MC SCH (21:32)
[2017-11-22] MEDS ORDERED: MELATONIN 5 MG TABLETS PO PRN (22:00)
[2017-11-23] MEDS: GABAPENTIN 400 MG CAPSULE (FP) PO SCH ×3 (06:54→21:36)
[2017-11-23] MEDS: CYCLOBENZAPRINE HCL 5 MG TABLET PO SCH ×3 (06:55→21:36)
[2017-11-23] MEDS: PRENATAL VITAMINS W/ FOLIC ACID TABLET (FP) PO SCH (09:55)
[2017-11-23] MEDS: RANITIDINE HCL 150 MG TABLET (FP) PO SCH (09:55)
[2017-11-23] MEDS: ASPIRIN 81 MG CHEWABLE TABLETS PO SCH (09:55)
[2017-11-23] MEDS: CLOPIDOGREL BISULFATE 75 MG TABLET (FP) PO SCH (09:55)
[2017-11-23] MEDS: LIDOCAINE 5% TOPICAL PATCH TP SCH ×2 (09:57→14:30)
--- NOTE | 2017-11-23 12:20 | HP ---
Psychiatrist Admission - Data Date of interview: 11/23/17 Admission source: [facility] Identifying data: This is one of the multiple admission to [address] [place] [address] inpatient rehabilitation for this 57 years old AA single unemployed male,residing alone, supported by SSI. Medical History: HTN,CAD with 2 stents placement. Psychiatric History: Patient reports some sleeping difficulties on and off.He reports taking Trazodone in the past with good response. Physical/Sexual Abuse/Trauma History: denies Vital Signs: Vital Signs - 24 hr 11/22/17 11/23/17 15:00 07:12 Temperature 98 F 98.2 F Pulse Rate 92 H 81 Respiratory 20 18 Rate Blood Pressure 122/74 135/76 Allergies/Adverse Reactions: Allergies Allergy/AdvReac Type Severity Reaction Status Date / Time Fish Containing Products Allergy Severe Hives Verified 11/22/17 15:10 No Known Drug Allergies Allergy Verified 11/22/17 15:10 Date of last physical exam: 11/22/17 Concur with the findings of this exam: Yes - Substance Abuse/Tx History Hx Alcohol Use: Yes (reports drinking since 22 yo,vodka2-3 pints daily) Hx Substance Use: Yes (heroin since 48 yo,sniffing 10-15 bags daily,marijuana since teens) Substance Use Type: Alcohol, Marijuana, Opiates Hx Substance Use Treatment: Yes (longest abstinence 3 years) Mental Status Exam - Mental Status Exam Alert and Oriented to: Time, Place, Person Cognitive Function: Grossly Intact Patient Appearance: Unkempt Mood: Sad Affect: Mood Congruent Patient Behavior: Cooperative Speech Pattern: Clear Voice Loudness: Normal Thought Process: Goal Oriented Thought Disorder: Not Present Hallucinations: Denies Suicidal Ideation: Denies Homicidal Ideation: Denies Insight/Judgement: Fair Sleep: Difficulty falling asleep Appetite: Good Muscle strength/Tone: Normal Gait/Station: Normal Psychiatric Findings - Problem List ([place] 1, 2,3) (1) Alcohol dependence Current Visit: Yes Status: Chronic (2) Nicotine dependence Current Visit: Yes Status: Chronic Qualifiers: Nicotine product type: cigarettes Substance use status: in withdrawal Qualified Code(s): F17.213 - Nicotine dependence, cigarettes, with withdrawal (3) Opioid dependence Current Visit: Yes Status: Chronic (4) HTN Current Visit: Yes Status: Chronic (5) CAD (coronary artery disease) Current Visit: Yes Status: Chronic Qualifiers: Coronary Disease-Associated Artery/Lesion type: [place] artery [place] vs. transplanted heart: [place] heart Associated angina: without angina Qualified Code(s): I25.10 - Atherosclerotic heart disease of [place] coronary artery without angina pectoris (6) Cannabis dependence Current Visit: Yes Status: Chronic (7) Substance-induced sleep disorder Current Visit: Yes Status: Chronic - Initial Treatment Plan Initial Treatment Plan: Will monitor progress.
--- NOTE | 2017-11-23 13:16 | PN ---
[facility] Progress Note Note: PATIENT PRESENTS WITH C/O LBP. CURRENTLY TREATED WITH LIDOCAINE, GABAPENTIN AND FLEXERIL. REQUESTING WHEELCHAIR AND ADJUSTMENT OF LIDOCAINE PATCHES. Vital Signs Temperature 98.2 F 11/23/17 07:12 Pulse Rate 81 11/23/17 07:12 Respiratory Rate 18 11/23/17 07:12 Blood Pressure 135/76 11/23/17 07:12 O2 Sat by Pulse Oximetry (%) OBJ: GENERAL: AMBULATES SLOWLY WITH CANE. IN NO ACUTE DISTRESS. SKIN: WARM AND DRY AND AFEBRILE EXT: NO EDEMA MS: +LBP, LEVEL 6/10, RADIATES TO RIGHT LEG. DESCRIBED SHARP WITH PINS AND NEEDLES TO RIGHT [place]ICHARDO AREA. A/P: LBP WILL CONTINUE CURRENT PLAN OF CARE WILL INCREASE LIDOCAINE PATCH TO 2 PATCHES DAILY CONTINUE TO MONITOR CLINICALLY.
[2017-11-23] MEDS: LIDOCAINE PATCH REMOVAL MC SCH (21:36)
[2017-11-23] MEDS: THIAMINE HCL 100 MG TABLET (FP) PO SCH (21:36)
[2017-11-23] MEDS: traZODone HCL 50 MG TABLET (FP) PO SCH (21:36)
[2017-11-24] MEDS: CYCLOBENZAPRINE HCL 5 MG TABLET PO SCH ×3 (06:38→21:18)
[2017-11-24] MEDS: GABAPENTIN 400 MG CAPSULE (FP) PO SCH ×3 (06:39→21:19)
[2017-11-24] MEDS: RANITIDINE HCL 150 MG TABLET (FP) PO SCH (10:25)
[2017-11-24] MEDS: CLOPIDOGREL BISULFATE 75 MG TABLET (FP) PO SCH (10:25)
[2017-11-24] MEDS: PRENATAL VITAMINS W/ FOLIC ACID TABLET (FP) PO SCH (10:25)
[2017-11-24] MEDS: ASPIRIN 81 MG CHEWABLE TABLETS PO SCH (10:25)
[2017-11-24] MEDS: LIDOCAINE 5% TOPICAL PATCH TP SCH (10:26)
[2017-11-24] MEDS: traZODone HCL 50 MG TABLET (FP) PO SCH (21:18)
[2017-11-24] MEDS: THIAMINE HCL 100 MG TABLET (FP) PO SCH (21:18)
[2017-11-24] MEDS: LIDOCAINE PATCH REMOVAL MC SCH (21:19)
[2017-11-25] MEDS: GABAPENTIN 400 MG CAPSULE (FP) PO SCH ×3 (06:15→21:33)
[2017-11-25] MEDS: CYCLOBENZAPRINE HCL 5 MG TABLET PO SCH ×3 (06:15→21:33)
[2017-11-25] MEDS: ASPIRIN 81 MG CHEWABLE TABLETS PO SCH (10:27)
[2017-11-25] MEDS: RANITIDINE HCL 150 MG TABLET (FP) PO SCH (10:27)
[2017-11-25] MEDS: CLOPIDOGREL BISULFATE 75 MG TABLET (FP) PO SCH (10:27)
[2017-11-25] MEDS: PRENATAL VITAMINS W/ FOLIC ACID TABLET (FP) PO SCH (10:27)
[2017-11-25] MEDS: LIDOCAINE 5% TOPICAL PATCH TP SCH (10:28)
[2017-11-25] MEDS: THIAMINE HCL 100 MG TABLET (FP) PO SCH (21:33)
[2017-11-25] MEDS: traZODone HCL 50 MG TABLET (FP) PO SCH (21:33)
[2017-11-25] MEDS: LIDOCAINE PATCH REMOVAL MC SCH (21:34)
[2017-11-26] MEDS: GABAPENTIN 400 MG CAPSULE (FP) PO SCH ×3 (06:17→21:38)
[2017-11-26] MEDS: CYCLOBENZAPRINE HCL 5 MG TABLET PO SCH ×3 (06:17→21:38)
[2017-11-26] MEDS: PRENATAL VITAMINS W/ FOLIC ACID TABLET (FP) PO SCH (10:56)
[2017-11-26] MEDS: CLOPIDOGREL BISULFATE 75 MG TABLET (FP) PO SCH (10:56)
[2017-11-26] MEDS: ASPIRIN 81 MG CHEWABLE TABLETS PO SCH (10:56)
[2017-11-26] MEDS: LIDOCAINE 5% TOPICAL PATCH TP SCH (10:56)
[2017-11-26] MEDS: RANITIDINE HCL 150 MG TABLET (FP) PO SCH (10:56)
[2017-11-26] MEDS ORDERED: COLLOIDAL OATMEAL 1 BAR EACH TP PRN (16:33)
[2017-11-26] MEDS: ALBUTEROL SO4 8 GM HFA INHALER IH PRN (18:02)
[2017-11-26] MEDS: traZODone HCL 50 MG TABLET (FP) PO SCH (21:38)
[2017-11-26] MEDS: THIAMINE HCL 100 MG TABLET (FP) PO SCH (21:38)
[2017-11-26] MEDS: LIDOCAINE PATCH REMOVAL MC SCH (21:53)
[2017-11-26] MEDS: AMMONIUM LACTATE 12% LOTION 225 GM BOTTLE TP SCH (21:53)
[2017-11-27] MEDS: GABAPENTIN 400 MG CAPSULE (FP) PO SCH ×3 (06:03→21:22)
[2017-11-27] MEDS: CYCLOBENZAPRINE HCL 5 MG TABLET PO SCH ×3 (06:03→21:22)
[2017-11-27] MEDS: CLOPIDOGREL BISULFATE 75 MG TABLET (FP) PO SCH (10:32)
[2017-11-27] MEDS: PRENATAL VITAMINS W/ FOLIC ACID TABLET (FP) PO SCH (10:32)
[2017-11-27] MEDS: LIDOCAINE 5% TOPICAL PATCH TP SCH (10:32)
[2017-11-27] MEDS: AMMONIUM LACTATE 12% LOTION 225 GM BOTTLE TP SCH ×2 (10:32→21:23)
[2017-11-27] MEDS: ASPIRIN 81 MG CHEWABLE TABLETS PO SCH (10:32)
[2017-11-27] MEDS: RANITIDINE HCL 150 MG TABLET (FP) PO SCH (10:32)
--- NOTE | 2017-11-27 13:01 | PN ---
[facility] Progress Note Note: Vital Signs Temperature 97.6 F 11/27/17 06:58 Pulse Rate 84 11/27/17 06:58 Respiratory Rate 18 11/27/17 06:58 Blood Pressure 122/72 11/27/17 06:58 O2 Sat by Pulse Oximetry (%) #: [id number] Others' Prescriptions Patient Name: Reynaldo Cortez Date: 1960 Address: [address] [place] [address] Sex: Male Rx Written Rx Dispensed Drug Quantity Days Supply Prescriber Name 04/30/2017 04/30/2017 suboxone 8 mg-2 mg sl film 21 7 Loi Pacheco Patient Name: Reynaldo Cortez Date: 1960 Address: [address] [place] [id number] Sex: Male Rx Written Rx Dispensed Drug Quantity Days Supply Prescriber Name 04/09/2017 04/10/2017 lorazepam 1 mg tablet 1 1 Micki Mae MD 04/05/2017 04/05/2017 suboxone 8 mg-2 mg sl film 30 10 Micki Mae MD 03/28/2017 03/30/2017 lorazepam 1 mg tablet 20 10 Swati Hutchinson MD 03/28/2017 03/30/2017 suboxone 8 mg-2 mg sl film 30 10 Swati Hutchinson MD Patient Name: Reynaldo Cortez Date: 1960 Address: [address] [place] [address] Sex: Male Rx Written Rx Dispensed Drug Quantity Days Supply Prescriber Name 02/13/2017 02/13/2017 suboxone 4 mg-1 mg sl film 10 5 Sergio Mayo MD Patient reports he wants to start suboxone therapy because he was treated before back in April 2017. Patient denies withdrawal symptoms. Vital signs are stable. Patient in no distress, ambulating in the unit with cane. Patient exhibits no signs and symptoms or acute opioid withdrawal. Patient to follow up with counselor to connect to outpatient Suboxone program. Patient was informed of this and verbalized understanding.
[2017-11-27] MEDS: THIAMINE HCL 100 MG TABLET (FP) PO SCH (21:22)
[2017-11-27] MEDS: traZODone HCL 50 MG TABLET (FP) PO SCH (21:23)
[2017-11-27] MEDS: LIDOCAINE PATCH REMOVAL MC SCH (21:23)
[2017-11-28] MEDS: GABAPENTIN 400 MG CAPSULE (FP) PO SCH ×3 (06:45→21:50)
[2017-11-28] MEDS: CYCLOBENZAPRINE HCL 5 MG TABLET PO SCH ×3 (06:48→21:50)
[2017-11-28] MEDS: AMMONIUM LACTATE 12% LOTION 225 GM BOTTLE TP SCH ×2 (10:43→21:51)
[2017-11-28] MEDS: PRENATAL VITAMINS W/ FOLIC ACID TABLET (FP) PO SCH (10:44)
[2017-11-28] MEDS: CLOPIDOGREL BISULFATE 75 MG TABLET (FP) PO SCH (10:44)
[2017-11-28] MEDS: RANITIDINE HCL 150 MG TABLET (FP) PO SCH (10:44)
[2017-11-28] MEDS: ASPIRIN 81 MG CHEWABLE TABLETS PO SCH (10:44)
[2017-11-28] MEDS: LIDOCAINE 5% TOPICAL PATCH TP SCH (10:44)
[2017-11-28] MEDS: traZODone HCL 50 MG TABLET (FP) PO SCH (21:51)
[2017-11-28] MEDS: THIAMINE HCL 100 MG TABLET (FP) PO SCH (21:51)
[2017-11-28] MEDS: LIDOCAINE PATCH REMOVAL MC SCH (21:51)
[2017-11-29] MEDS: CYCLOBENZAPRINE HCL 5 MG TABLET PO SCH ×3 (06:29→21:02)
[2017-11-29] MEDS: GABAPENTIN 400 MG CAPSULE (FP) PO SCH ×3 (06:29→21:02)
[2017-11-29] MEDS: LIDOCAINE 5% TOPICAL PATCH TP SCH (10:16)
[2017-11-29] MEDS: CLOPIDOGREL BISULFATE 75 MG TABLET (FP) PO SCH (10:17)
[2017-11-29] MEDS: ASPIRIN 81 MG CHEWABLE TABLETS PO SCH (10:17)
[2017-11-29] MEDS: RANITIDINE HCL 150 MG TABLET (FP) PO SCH (10:17)
[2017-11-29] MEDS: PRENATAL VITAMINS W/ FOLIC ACID TABLET (FP) PO SCH (10:17)
[2017-11-29] MEDS: AMMONIUM LACTATE 12% LOTION 225 GM BOTTLE TP SCH ×2 (10:18→21:45)
[2017-11-29] MEDS: traZODone HCL 50 MG TABLET (FP) PO SCH (21:02)
[2017-11-29] MEDS: LIDOCAINE PATCH REMOVAL MC SCH (21:02)
[2017-11-29] MEDS: THIAMINE HCL 100 MG TABLET (FP) PO SCH (21:02)
[2017-11-30] MEDS: CYCLOBENZAPRINE HCL 5 MG TABLET PO SCH ×2 (05:52→14:12)
[2017-11-30] MEDS: GABAPENTIN 400 MG CAPSULE (FP) PO SCH ×2 (05:52→14:12)
[2017-11-30 06:56] VITALS: BP 115/68; PULSE 89; TEMP 97.8
[2017-11-30] MEDS: RANITIDINE HCL 150 MG TABLET (FP) PO SCH (10:30)
[2017-11-30] MEDS: CLOPIDOGREL BISULFATE 75 MG TABLET (FP) PO SCH (10:30)
[2017-11-30] MEDS: PRENATAL VITAMINS W/ FOLIC ACID TABLET (FP) PO SCH (10:30)
[2017-11-30] MEDS: ASPIRIN 81 MG CHEWABLE TABLETS PO SCH (10:30)
[2017-11-30] MEDS: AMMONIUM LACTATE 12% LOTION 225 GM BOTTLE TP SCH (10:32)
[2017-11-30] MEDS: LIDOCAINE 5% TOPICAL PATCH TP SCH (10:34)
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
== END 2017-11-30 16:30 | disposition home or self-care (01) | DRG 772 ==
LOC: YASAS 13:05 → Y5N 13:07
PROVIDERS: ADMIT Psychiatry & Neurology Psychiatry; ATTEND Psychiatry & Neurology Psychiatry
PROC: HZ42ZZZ Group Counseling for Substance Abuse Treatment, Cognitive-Behavioral (ICD-10-PCS; principal; 2017-11-22)
DX: F11.20 Opioid dependence, uncomplicated (principal); F10.20 Alcohol dependence, uncomplicated; F12.20 Cannabis dependence, uncomplicated; F17.210 Nicotine dependence, cigarettes, uncomplicated; F19.282 Other psychoactive substance dependence with psychoactive substance-induced sleep disorder; F19.24 Other psychoactive substance dependence with psychoactive substance-induced mood disorder; I25.10 Atherosclerotic heart disease of native coronary artery without angina pectoris; I10 Essential (primary) hypertension; Z95.5 Presence of coronary angioplasty implant and graft; G47.00 Insomnia, unspecified; M54.5 Low back pain; R26.89 Other abnormalities of gait and mobility; Z99.89 Dependence on other enabling machines and devices

== ENCOUNTER 2018-08-30 16:26 | Inpatient (IN) | payer OTHER ==
[2018-08-30 17:36] VITALS: BMI 22.1
--- NOTE | 2018-08-30 19:31 | HP ---
COWS - Scale Resting Pulse: 2= AR 101-120 Sweatin= Beads of Sweat on Face Restless Observation: 0= Sits Still Pupil Size: 0= Normal to Room Light Bone or Joint Aches: 1= Mild Discomfort Runny Nose/ Eye Tearin= Runny Nose/Eyes GI Upset > 30mins: 2= Nausea/Diarrhea Tremor Observation: 0= None Yawning Observation: 0= None Anxiety or Irritability: 0= None Goose Flesh Skin: 0=Smooth Skin COWS Score: 10 CIWA Score Nausea/Vomitin-Mild Nausea/No Vomiting Muscle Tremors: None Anxiety: 0-No Anxiety, at Ease Agitation: 0-Normal Activity Paroxysmal Sweats: 3 Orientation: 2-Disoriented Date<2 days Tacttile Disturbances: 0-None Auditory Disturbances: 0-None Visual Disturbances: 2-Mild Sensitivity Headache: 4-Moderately Severe CIWA-Ar Total Score: 12 - Admission Criteria OASAS Guidelines: Admission for Medically Managed Detox: Requires at least one of the followin. CIWA greater than 12 2. Seizures within the past 24 hours 3. Delirium tremens within the past 24 hours 4. Hallucinations within the past 24 hours 5. Acute intervention needed for co occurring medical disorder 6. Acute intervention needed for co occurring psychiatric disorder 7. Severe withdrawal that cannot be handled at a lower level of care (continued vomiting, continued diarrhea, abnormal vital signs) requiring intravenous medication and/or fluids 8. Admission ROS [facility] Allergies/Adverse Reactions: Allergies Allergy/AdvReac Type Severity Reaction Status Date / Time Fish Containing Products Allergy Severe Hives Verified 08/30/18 17:19 No Known Drug Allergies Allergy Verified 08/30/18 17:19 History of Present Illness: Search Terms: scot melchor, 1960 Search Date: 08/30/2018 07:29:35 PM The Drug Utilization Report below displays all of the controlled substance prescriptions, if any, that your patient has filled in the last twelve months. The information displayed on this report is compiled from pharmacy submissions to the Department, and accurately reflects the information as submitted by the pharmacies. This report was requested by: Swati Merida | Reference #: [id number] There are no results for the search terms that you entered pt here requesting detox from etoh use , reports 1/5 /day " for a long time " , latest use yesterday per pt, current AYDE 0.115 heroin use - reports 10 -15 bags /day via inhalation denies IVDU , latest use yesterday , current symptoms as above cannabis - varied amount s K2 - unspecified amount tobacco - occasional use PMHX / PSHX : denies - per mr , h/o asthma , CAD w/ stenting in 2012 Psych : denies meds : denies Pt is very poor historian due to intoxication , falls asleep frequently during interview , awakened by verbal stimuli . Exam Limitations: Clinical Condition, Intoxication - Ebola screening Have you traveled outside of the country in the last 21 days: No (N) Have you had contact with anyone from an Ebola affected area: No Do you have a fever: No - Review of Systems Constitutional: See HPI EENT: reports: See HPI, Tearing, Nose Congestion Respiratory: reports: Cough (x 2 days) Cardiac: reports: No Symptoms Reported GI: reports: See HPI : reports: No Symptoms Reported Integumentary: reports: See HPI Neuro: reports: No Symptoms reported Endocrine: reports: No Symptoms Reported Psychiatric: reports: Orientated x3 Patient History - Patient Medical History Hx Anemia: No Hx Asthma: Yes (MDI) Hx Chronic Obstructive Pulmonary Disease (COPD): No Hx Cancer: No Hx Cardiac Disorders: Yes (HX CAD;TWO STENTS INSERTED. ASPIRIN) Hx Congestive Heart Failure: No Hx Hypertension: No Hx Hypercholesterolemia: Yes (PLAVIX IN THE PAST.) Hx Pacemaker: No HX Cerebrovascular Accident: No Hx Seizures: No Hx Dementia: No Hx Diabetes: No Hx Gastrointestinal Disorders: No Hx Liver Disease: No Hx Genitourinary Disorders: No Hx Sexually Transmitted Disorders: No Hx Renal Disease (ESRD): No Hx Thyroid Disease: No Hx Human Immunodeficiency Virus (HIV): No (NEGATIVE HX last 09/05) Hx Hepatitis C: No Hx Depression: No Hx Suicide Attempt: No (DENIES) Hx Bipolar Disorder: No Hx Schizophrenia: No - Patient Surgical History Past Surgical History: Yes Hx Neurologic Surgery: No Hx Cataract Extraction: No Hx Cardiac Surgery: Yes (STENT X 2 IN 2012) Hx Lung Surgery: No Hx Breast Surgery: No Hx Breast Biopsy: No Hx Abdominal Surgery: No Hx Appendectomy: No Hx Cholecystectomy: No Hx Genitourinary Surgery: No Hx Section: No Hx Orthopedic Surgery: No Anesthesia Reaction: No - PPD History Date: 11/19/17 Results: 0 mm. - Smoking Cessation Smoking history: Current every day smoker Have you smoked in the past 12 months: Yes Aproximately how many cigarettes per day: 10 Cigars Per Day: 0 Hx Chewing Tobacco Use: No Initiated information on smoking cessation: No - Substances abused Heroin Substance route: Injection Frequency: Daily Amount used: 3 to 5 bags Age of first use: 10 Date of last use: 08/03/18 Crack Substance route: Smoking Frequency: 3-6 times per week Amount used: 50 dollars Date of last use: 08/05/18 K2/Spice Substance route: Smoking Frequency: Daily Amount used: 4 to 5 blunts Age of first use: 16 Date of last use: 08/30/18 Alcohol Substance route: Oral Frequency: Daily Amount used: 1 pint Age of first use: 15 Date of last use: 08/04/18 Family Disease History - Family Disease History Family Disease History: Heart Disease: Father (alcohol,), Mother ( alcohol) Admission Physical Exam [facility] - Vital Signs Vital Signs: Vital Signs - 24 hr 08/30/18 17:18 Temperature 100.9 F H Pulse Rate 103 H Respiratory 16 Rate Blood Pressure 88/57 L - Physical General Appearance: Yes: Disheveled, Moderate Distress, Severe Distress, Alcohol on Breath, Intoxicated, Thin, Sweating HEENTM: Yes: EOMI, Hearing grossly Normal, Normocephalic, Normal Voice, Nasal Congestion, Rhinorrhea, Muffled/Hoarse Voice, Other (poor dentition , many missing teeth) Respiratory: Yes: Chest Non-Tender, Lungs Clear, Decreased Breath Sounds, No Respiratory Distress, No Accessory Muscle Use Neck: Yes: No masses,lesions,Nodules, Trachea in good position Cardiology: Yes: Regular Rhythm, Regular Rate, S1, S2, Tachycardia Abdominal: Yes: Normal Bowel Sounds, Non Tender, Flat, Soft Back: Yes: Within Normal Limits, Normal Inspection Extremities: Yes: Normal Range of Motion, Non-Tender, Tremors (slight , w/ arms extended) Neurological: Yes: Motor Strength 5/5, Confused, Disoriented Integumentary: Yes: Petechiae (krystal UE , trunk , LE - reports from pruritus , scratching himself) - Diagnostic (1) Alcohol dependence with uncomplicated withdrawal Current Visit: Yes Status: Acute (2) Opioid dependence with withdrawal Current Visit: Yes Status: Acute (3) Cannabis dependence Current Visit: Yes Status: Chronic Comment: . Breathalyzer - Breathalyzer Breathalyzer: 0.115 Urine Drug Screen - Test Device Lot number: [id number] Expiration date: 04/19/20 - Control Is test valid?: Yes - Results Drug screen NEGATIVE: No Urine drug screen results: THC-Marijuana, FEN-Fentanyl, MOP-Opiates Inpatient Rehab Admission - Rehab Decision to Admit Inpatient rehab admission?: No
[2018-08-30] MEDS ORDERED: MAG HYDROX/AL HYDROX/SIMETH 30 ML UNIT-DOSE CUP PO PRN (19:59)
[2018-08-30] MEDS ORDERED: IBUPROFEN 400 MG TABLET (FP) PO PRN (19:59)
[2018-08-30] MEDS ORDERED: BISMUTH SUBSALICYLATE 524 MG/30 ML UD PO PRN (19:59)
[2018-08-30] MEDS ORDERED: MAGNESIUM HYDROX 2400MG/30ML ORAL SUSPENSION 30 ML CUP PO PRN (19:59)
[2018-08-30] MEDS ORDERED: chlordiazePOXIDE HCL 10 MG CAPSULE PO PRN (19:59)
[2018-08-30] MEDS ORDERED: MAGNESIUM CITRATE 300 ML BOTTLE PO PRN (19:59)
[2018-08-30] MEDS ORDERED: MELATONIN 5 MG TABLETS PO PRN (19:59)
[2018-08-30] MEDS ORDERED: ALBUTEROL SO4 0.083% IH SOL 2.5 MG/3 ML VIAL.NEB. NEB PRN (20:02)
[2018-08-30] MEDS: ASPIRIN 81 MG CHEWABLE TABLETS PO SCH (22:30)
[2018-08-30] MEDS: chlordiazePOXIDE HCL 25 MG CAPSULE PO SCH (22:30)
[2018-08-30] MEDS: THIAMINE HCL 100 MG TABLET (FP) PO SCH (22:30)
[2018-08-30] MEDS ORDERED: METHADONE HCL 10 MG TABLET (FOR DETOX USE ONLY) PO ONE (23:00)
[2018-08-31] MEDS: ACETAMINOPHEN 325 MG TABLET (FP) PO PRN ×4 (03:25→21:11)
[2018-08-31] MEDS: MENTHOL/PHENOL 1 EACH UD MM PRN ×2 (03:30→10:39)
[2018-08-31] MEDS: chlordiazePOXIDE HCL 25 MG CAPSULE PO SCH ×2 (06:00→12:42)
[2018-08-31] MEDS: PRENATAL VITAMINS W/ FOLIC ACID TABLET (FP) PO SCH (09:31)
[2018-08-31] MEDS: ASPIRIN 81 MG CHEWABLE TABLETS PO SCH (09:31)
[2018-08-31] MEDS ORDERED: METHADONE HCL 10 MG TABLET (FOR DETOX USE ONLY) PO ONE (10:00)
[2018-08-31 10:56] LABS: ALBUMIN 3.1 g/dl (3.4-5.0); ALK PHOS 145 U/L (45-117); ANION GAP 8 MMOL/L (8-16); BILIRUBIN,TOTAL 0.9 mg/dL (0.2-1); BLOOD UREA NITROGEN 11 mg/dL (7-18); CALCIUM 8.8 mg/dL (8.5-10.1); CHLORIDE 98 mmol/L (98-107); CO2 27 mmol/L (21-32); CREATININE 0.6 mg/dL (0.55-1.3); GLUCOSE,RANDOM 84 mg/dL (74-106); SGOT/AST 54 U/L (15-37); SGPT/ALT 41 U/L (13-61); SODIUM 133 mmol/L (136-145); TOT PROT 7.8 g/dl (6.4-8.2)
[2018-08-31 11:02] LABS: HEMATOCRIT 39.5 % (35.4-49); HEMOGLOBIN 13.1 GM/dL (11.7-16.9); MCH 31.9 pg (25.7-33.7); MCHC 33.1 g/dl (32.0-35.9); MEAN CELL VOLUME 96.4 fl (80-96); MEAN PLT VOLUME 8.4 fl (7.5-11.1); PLATELET COUNT 317 K/MM3 (134-434); RDW 13.8 % (11.9-15.9); WHITE BLOOD COUNT 14.7 K/mm3 (4.0-10.0)
--- NOTE | 2018-08-31 11:02 | PN ---
S CIWA - CIWA Score Nausea/Vomitin Muscle Tremors: 3 Anxiety: 2 Agitation: 2 Paroxysmal Sweats: No Perspiration Orientation: 0-Oriented Tacttile Disturbances: 2-Mild Itch/Numbness/Burn Auditory Disturbances: 0-None Visual Disturbances: 0-None Headache: 1-Very Mild CIWA-Ar Total Score: 13 BHS Progress Note (SOAP) Subjective: Bank pain, shakes, sweats, interrupted sleep Objective: 08/31/18 11:01 Vital Signs 08/31/18 08/31/18 08/31/18 03:30 06:18 10:15 Temperature 96.8 F L 99.5 F Pulse Rate 78 88 Respiratory 18 18 16 Rate Blood Pressure 121/74 130/81 Laboratory Last Values Sodium 133 mmol/L (136-145) L 08/31/18 07:30 Potassium 4.0 mmol/L (3.5-5.1) 08/31/18 07:30 Chloride 98 mmol/L (98-107) 08/31/18 07:30 Carbon Dioxide 27 mmol/L (21-32) 08/31/18 07:30 Anion Gap 8 MMOL/L (8-16) 08/31/18 07:30 BUN 11 mg/dL (7-18) 08/31/18 07:30 Creatinine 0.6 mg/dL (0.55-1.3) 08/31/18 07:30 Creat Clearance w eGFR 138.87 (>60) 08/31/18 07:30 Random Glucose 84 mg/dL (74-106) 08/31/18 07:30 Calcium 8.8 mg/dL (8.5-10.1) 08/31/18 07:30 Total Bilirubin 0.9 mg/dL (0.2-1) 08/31/18 07:30 AST 54 U/L (15-37) H 08/31/18 07:30 ALT 41 U/L (13-61) 08/31/18 07:30 Alkaline Phosphatase 145 U/L (45-117) H 08/31/18 07:30 Total Protein 7.8 g/dl (6.4-8.2) 08/31/18 07:30 Albumin 3.1 g/dl (3.4-5.0) L 08/31/18 07:30 Chemistry noted, mild hyponatremia CBC pending Assessment: 08/31/18 11:02 Withdrawal sx Plan: Continue detox
[2018-08-31] MEDS: AMMONIUM LACTATE 12% LOTION 225 GM BOTTLE TP PRN ×2 (12:40→21:12)
[2018-08-31] MEDS ORDERED: COLLOIDAL OATMEAL 1 BAR EACH TP PRN (12:46)
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
[2018-08-31] MEDS ORDERED: guaiFENesin 200 MG/10 ML 10 ML UNIT-DOSE CUPS PO PRN (13:14)
[2018-08-31] MEDS: AMOX TR/POT CLAV 875MG/125MG TABLETS (FP) PO SCH (17:24)
[2018-08-31] MEDS: THIAMINE HCL 100 MG TABLET (FP) PO SCH (21:10)
[2018-08-31] MEDS: chlordiazePOXIDE 5 MG CAPSULE PO SCH (21:10)
[2018-09-01] MEDS: ACETAMINOPHEN 325 MG TABLET (FP) PO PRN ×3 (00:47→18:21)
[2018-09-01] MEDS: MENTHOL/PHENOL 1 EACH UD MM PRN (00:51)
[2018-09-01] MEDS: chlordiazePOXIDE 5 MG CAPSULE PO SCH ×2 (06:05→12:23)
[2018-09-01] MEDS: AMOX TR/POT CLAV 875MG/125MG TABLETS (FP) PO SCH ×2 (08:00→17:19)
[2018-09-01] MEDS ORDERED: METHADONE HCL 10 MG TABLET (FOR DETOX USE ONLY) PO ONE (10:00)
[2018-09-01] MEDS: PRENATAL VITAMINS W/ FOLIC ACID TABLET (FP) PO SCH (10:09)
[2018-09-01] MEDS: ASPIRIN 81 MG CHEWABLE TABLETS PO SCH (10:09)
--- NOTE | 2018-09-01 10:34 | PN ---
[facility] CIWA - CIWA Score Nausea/Vomitin-No Nausea/No Vomiting Muscle Tremors: None Anxiety: 2 Agitation: 3 Paroxysmal Sweats: 2 Orientation: 0-Oriented Tacttile Disturbances: 0-None Auditory Disturbances: 0-None Visual Disturbances: 0-None Headache: 0-None Present CIWA-Ar Total Score: 7 S COWS - Scale Resting Pulse: 2= MN 101-120 Sweatin=Flushed/Facial Moisture Restless Observation: 1= Difficult to Sit Still Pupil Size: 0= Normal to Room Light Bone or Joint Aches: 0= None Runny Nose/ Eye Tearin= None GI Upset > 30mins: 0= None Tremor Observation of Outstretched Hands: 0= None Yawning Observation: 0= None Anxiety or Irritability: 2=Irritable/Anxious Goose Flesh Skin: 0=Smooth Skin COWS Score: 7 S Progress Note (SOAP) Subjective: PATIENT CONTINUES WITH METH/ROSEANNE DETOX. PATIENT IS IRRITABLE, RESTLESS. DIAGNOSED WITH BRONCHITIS AND TREATED WITH AUGMENTIN. PATIENT HAD ELEVATED TEMP. OF 101.0 LAST NIGHT. AFEBRILE THIS MORNING. Vital Signs Temperature 98.4 F 09/01/18 06:25 Pulse Rate 101 H 09/01/18 09:15 Respiratory Rate 16 09/01/18 09:15 Blood Pressure 118/71 09/01/18 09:15 O2 Sat by Pulse Oximetry (%) Laboratory Tests 08/31/18 08/31/18 08/31/18 07:30 07:30 07:30 WBC 14.7 H RBC 4.10 Hgb 13.1 Hct 39.5 MCV 96.4 H MCH 31.9 MCHC 33.1 RDW 13.8 Plt Count 317 D MPV 8.4 D Sodium 133 L Potassium 4.0 Chloride 98 Carbon Dioxide 27 Anion Gap 8 BUN 11 Creatinine 0.6 Creat Clearance w eGFR 138.87 Random Glucose 84 Calcium 8.8 Total Bilirubin 0.9 AST 54 H ALT 41 Alkaline Phosphatase 145 H Total Protein 7.8 Albumin 3.1 L RPR Titer Nonreactive Objective: 09/01/18 10:34 PE: ALERT AND ORIENTED X 3 SKIN WARM, MILD MOISTURE EXT AMB AD ROSEANNE NO VISIBLE TREMORS ANXIOUS AND IRRITABLE Assessment: 09/01/18 10:34 A/P: WITHDRAWAL SX BRONCHITIS Plan: CONTINUE DETOX ENCOURAGED ORAL FLUIDS AUGMENTIN ORDERED REPEAT CBC IN AM MONITOR CLINICALLY
[2018-09-01] MEDS: AMMONIUM LACTATE 12% LOTION 225 GM BOTTLE TP PRN ×2 (12:26→22:54)
[2018-09-01] MEDS ORDERED: chlordiazePOXIDE HCL 10 MG CAPSULE PO PRN (21:00)
[2018-09-01] MEDS: chlordiazePOXIDE HCL 10 MG CAPSULE PO SCH (22:05)
[2018-09-01] MEDS: THIAMINE HCL 100 MG TABLET (FP) PO SCH (22:05)
[2018-09-02] MEDS: ACETAMINOPHEN 325 MG TABLET (FP) PO PRN (00:40)
[2018-09-02] MEDS: chlordiazePOXIDE HCL 10 MG CAPSULE PO SCH (05:09)
[2018-09-02] MEDS: AMOX TR/POT CLAV 875MG/125MG TABLETS (FP) PO SCH (07:27)
[2018-09-02 09:40] VITALS: BP 137/95; PULSE 101; TEMP 98.4
[2018-09-02] MEDS ORDERED: METHYL SALICYLATE/MENTHOL OINT 30 GM TUBE TP SCH (10:00)
[2018-09-02] MEDS ORDERED: METHADONE HCL 10 MG TABLET (FOR DETOX USE ONLY) PO ONE (10:00)
[2018-09-02] MEDS: PRENATAL VITAMINS W/ FOLIC ACID TABLET (FP) PO SCH (10:05)
[2018-09-02] MEDS: ASPIRIN 81 MG CHEWABLE TABLETS PO SCH (10:05)
--- NOTE | 2018-09-02 14:42 | DS ---
[facility] Detox Discharge Summary Admission Date: 08/30/18 Discharge Date: 09/02/18 - History Present History: Alcohol Dependence, Cannabis Dependence, Opioid Dependence Additional Comments: PATIENT GOING TO [facility] ([place], [place]) FOR AFTERCARE. PRESCRIPTION FOR FOLLOW-UP AFTERCARE ANTIBIOTIC (AUGMENTIN) STARTED WHILE PATIENT WAS ADMITTED FOR DETOX FOR BRONCHITIS, SENT TO [facility] ([place], [place]) FOR PATIENT TO SUPERVISOR MENDING HE IS LEAVING THE BUILDING TO TAKE WITH HIM. PATIENT ADVISED TO COMPLETE FULL COURSE OF ANTIBIOTIC. PATIENT VERBALIZED UNDERSTANDING OF RECOMMENDATION. PATIENT WAS DISCHARGED FROM DETOX UNIT IN STABLE MEDICAL CONDITION. Pertinent Past History: History Of Asthma, History Of C.A.D., History Of Cardiac Stents (2), Hypercholesterolemia. - Physical Exam Results Vital Signs: Vital Signs Temperature 98.4 F 09/02/18 09:39 Pulse Rate 101 H 09/02/18 09:39 Respiratory Rate 18 09/02/18 09:39 Blood Pressure 137/95 09/02/18 09:39 O2 Sat by Pulse Oximetry (%) Pertinent Admission Physical Exam Findings: WITHDRAWAL SYMPTOMS. Laboratory Tests 08/31/18 08/31/18 08/31/18 07:30 07:30 07:30 WBC 14.7 H RBC 4.10 Hgb 13.1 Hct 39.5 MCV 96.4 H MCH 31.9 MCHC 33.1 RDW 13.8 Plt Count 317 D MPV 8.4 D Sodium 133 L Potassium 4.0 Chloride 98 Carbon Dioxide 27 Anion Gap 8 BUN 11 Creatinine 0.6 Creat Clearance w eGFR 138.87 Random Glucose 84 Calcium 8.8 Total Bilirubin 0.9 AST 54 H ALT 41 Alkaline Phosphatase 145 H Total Protein 7.8 Albumin 3.1 L RPR Titer Nonreactive LABS NOTED. - Treatment Hospital Course: Detox Protocol Followed, Detoxed Safely, Responded well, Discharged Condition Good, Rehab Referral Accepted Patient has Accepted a Rehab Referral to: [facility] ([place], [place]). - Medication Discharge Medications: Ambulatory Orders Albuterol Sulfate Inhaler - [Ventolin HFA Inhaler -] 2 puff IH Q4H PRN #1 inhaler 11/21/17 Aspirin [ASA -] 81 mg PO DAILY #30 tab.chew 11/30/17 traZODone HCL [Trazodone HCl] 50 mg PO HS #30 tablet 11/30/17 Amoxicillin/Potassium Clav [Augmentin 875-125 Tablet] 1 each PO BID 7 Days #14 tablet 09/02/18 - Diagnosis (1) Alcohol dependence with uncomplicated withdrawal Status: Acute (2) Opioid dependence with withdrawal Status: Acute (3) Cannabis dependence Status: Chronic - AMA Did Patient Leave Against Medical Advice: No
[2018-09-03] MEDS ORDERED: METHADONE HCL 5 MG TABLET (FOR DETOX USE ONLY) PO ONE (06:00)
== END 2018-09-02 10:27 | disposition home or self-care (01) | DRG 773 ==
LOC: YASAS 16:26 → Y6N 20:01
PROVIDERS: ADMIT Surgery; ATTEND Surgery
PROC: HZ2ZZZZ Detoxification Services for Substance Abuse Treatment (ICD-10-PCS; principal; 2018-08-30)
DX: F11.23 Opioid dependence with withdrawal (principal); F10.230 Alcohol dependence with withdrawal, uncomplicated; F12.20 Cannabis dependence, uncomplicated; I25.10 Atherosclerotic heart disease of native coronary artery without angina pectoris; J40 Bronchitis, not specified as acute or chronic; E87.1 Hypo-osmolality and hyponatremia; E78.00 Pure hypercholesterolemia, unspecified; Z95.5 Presence of coronary angioplasty implant and graft; Z87.09 Personal history of other diseases of the respiratory system; Z91.013 Allergy to seafood
CPT/HCPCS: 36415; 80053; 85027; 86593